=== PATIENT | female | born 1950 | race Caucasian/White ===

== ENCOUNTER 2025-08-09 09:51 | Observation (INO) | payer MEDICARE, SELFPAY ==
--- NOTE | 2025-08-06 17:03 | PCM.HP.BLA ---
History and Physical History and Physical Patient Name: Lori MatthewsB: 1950 From: JONATHAN VALDEZ PA-C DATE OF PRE-OPERATIVE EXAM: 08/05/2025 DATE OF SURGERY: 08/09/2025 SCHEDULED PROCEDURE: Robotic assisted right total knee arthroplasty HISTORY OF PRESENT ILLNESS: Patient is a 74-year-old female presenting for preoperative visit. Patient states that she has had right knee pain since September 2024. Patient states that her pain is intermittent, aching, sharp. Patient states that stairs, driving, walking make her pain worse. Patient states that sitting, resting, elevating the leg helps alleviate her pain. Patient states that she is no longer able to dress herself without difficulty due to pain. Patient states that she has tried cortisone injection with no help. Patient states she has tried ice, elevation, oral medications with help. Patient states that she has not tried heat, compression, physical therapy, home exercises, chiropractor, gel injections. Patient states that she did lose 19 pounds last month but she gained it back due to pain. Patient states she has had 1 cortisone injection at [facility]. Patient denies any previous surgeries on the affected joint. REVIEW OF SYSTEMS: Review Of Systems: Constitutional: Denies change in appetite, fever and weight change. Cardiovasular: Denies chest pain, heart murmur and irregular heartbeat. Respiratory: Reports pneumonia, but denies cough, shortness of breath, tuberculosis and wheezing. Gastrointestinal: Denies constipation, diarrhea, heartburn, nausea, rectal itching, bloody stools and vomiting. Genitourinary: . (F Genital Sx) . (Urinary Sx) Musculoskeletal: Reports leg swelling and pain, but denies trouble walking and weakness. Skin: Denies Raynaud's, history of shingles and tattoo. Neurological: Reports dizziness but denies ambulatory dysfunction, numbness/tingling and tremor. Psychiatric: Reports insomnia, but denies anxiety and stress. Hematologic/Lymphatic: Denies anemia, bleeding/bruising tendency and past transfusion. Reviewed, no changes. PAST MEDICAL HISTORY: Advance Care Plan: No Advance Directives Effective Date: 01/18/2025 Past Medical History: Medical Problems: Arthritis, High Blood Pressure, Hypercholesterolemia, Sleep Apnea, Covid-19 Vaccine Accidents: None Surgical Hx: Appendectomy, Cataracts, Gallbladder, Hysterectomy, Tonsillectomy Anesthesia Complications: None Assistive Devices: Hearing Aid, Cpap Reviewed, no changes. SOCIAL HISTORY: Social History: Marital: .Occupation: Retired.Work Status: Retired.Hand Dominance: Left-handed. Personal Habits: Cigarette Use: Never Smoked Cigarettes.Smokeless Tobacco: Never Used Smokeless Tobacco.E-Cigarette Use: Never used.Alcohol: Occasionally.Drug Use: Denies Use.Enjoy Exercising: Daily. Reviewed, no changes. VITALS: Ht: 63" Wt: 245lb Wt k.132 BMI: 43.4 BP: 128/82 Pulse: 88 Resp: 17 T: 96.8 T: 36.0C Pain Level: 5/10 O2SatR: 96 ALLERGIES: No Known Drug Allergy MEDICATIONS: Meloxicam 15 mg 1 tablet by mouth every day, Ropinirole HCL ER 6 mg take one tablet by mouth nightly, Losartan Potassium 50 mg 1 by mouth every day, Pravastatin Sodium 40 mg 1po qday, Multi-Vitamin vit d, b12, iron, zinc, mag., Synthroid 25 mcg once daily, L-Thyroxine PRE-OP EXAM: General appearance:NORMAL Other: Eyes: Conjunctivae and lids: NORMAL Pupils: ERR Ears, Nose, Mouth, and Throat: NORMAL Other: Inspection of lips, teeth and gums: NORMAL Other: Neck: Examination of neck: no masses noted. Respiratory: Assessment of respiratory effort: NORMAL Other: Auscultation of lungs: clear to auscultation no wheezes, rhonchi or rales. Cardiovascular: Auscultation of heart: regular rate and rhythm, no murmurs, gallops or rubs. Exam of carotid arteries: NORMAL Other: Gastrointestinal: Exam of abdomen: soft, nontender, nondistended bowel sounds present. Lymphatic: Palpation of nodes in neck: NORMAL Other: Palpation of nodes in Axillae: NORMAL Other: Neurological: see below Psychiatric: Orientation to time, place and person: NORMAL Other: Mood and affect: NORMAL Other: PHYSICAL EXAMINATION: Physical exam: Alert and oriented ×3, no acute distress. Normal mood and affect. Antalgic gait. Right knee: Medial joint line tenderness left. Stable to varus valgus stressing. Sensation intact light touch throughout. Range of motion 5-135 left. Stable anterior posterior drawer. Medial joint line tenderness left. Trace effusion. No rashes or lesions. DF, PF, EHL 5/5. DP 2+ brisk capillary refill in toes. IMAGING STUDIES: X-rays reviewed again from 01/18/25 from our office right knee Grade 3 medial compartment osteoarthritis. Mild patellofemoral joint degenerative changes. IMPRESSION: Hypertension Hypercholesterolemia Sleep apnea Prediabetes Restless leg syndrome Chronic fatigue Aortic heart murmur Left ventricular hypertrophy Primary osteoarthritis right knee Pain right knee Obesity PLAN: The surgeon did discuss and review all treatment options with the patient including surgical versus nonsurgical. At this time the patient does wish to proceed with the above-stated procedure. Potential risks benefits and complications of the procedure were discussed and reviewed with the patient including but not limited to , infection, nerve and blood vessel damage, persistent pain, numbness, tingling, paresthesias, blood clot, pulmonary embolism, in the requirement for possible further surgery. Patient expressed full understanding. Has no further questions for the doctor. Does agree to proceed with the above-stated procedure, and has signed the appropriate surgery consent form. DVT prophylaxis: Patient will be taking aspirin 81 mg twice daily for 4 weeks postoperatively. Patient will be wearing ROSEMARIE hose for 2 weeks postoperatively. Pain medications: Patient will be taking Tylenol 1000 mg every 8 hours, meloxicam for 30 days postoperatively, oxycodone as needed for postoperative pain. Patient will be on doxycycline for 2 weeks postoperatively due to BMI over 40. Patient will be on famotidine for 30 days postoperatively. Patient was educated on the use of senna for postoperative constipation. ___ I have re-examined the patient. There are no clinical changes since date of exam. ___ See progress notes for changes. ___ Dictated on admission Date: Time: Signature:
[2025-08-09] VITALS (17 sets, daily range): BP systolic 130–153; BP diastolic 58–93; PULSE 87–107; RESP 12–18; TEMP 36.3–37.1; O2SAT 4–96; BMI 43.3
--- OUTSIDE RECORDS SUMMARY | 2025-08-09 05:54 | XMS RPT_ITS | CCD ---
Author Organization [facility] CliniSynv Care Team Providers Care Sound Art Instructor Name Role Phone Leandro Hayes MD Unavailable Leandro Hayes MD Unavailable Ariane MANAGER WOUND, Yara Unavailable Gogogail (scribe), Hemanta Unavailable Unavaila marilu Shay PA-C, Krystyna J Unavailable [phone] Wengerestefany MANAGER WOUND, Amna Unavailable Unavailabl e Unavailable Unavailable Unavailable Primary Care Provider Unavailabl e Milo ZIMMERMAN, Butpankaj Primary Care Provider [phone] NAROUZE, SAMER N Attending Unavailable LATOUF, BUTROS Referring Unavailable LATOUF, BUTROS Primary Care Unavailable NAROUZE, SAMER N Referring Unavailable LATOUF, BUTROS Primary Care Unavailable NAROUZE, SAMER N Attending Unavailable NAROUZE, SAMER N Attending Unavailable NAROUZE, SAMER N Referring Unavailable LATOUF, BUTROS Primary Care Unavailable NAROUZE, SAMER N Attending Unavailable NAROUZE, SAMER N Referring Unavailable LATOUF, BUTROS Primary Care Unavailable NAROUZE, SAMER N Attending Unavailable NAROUZE, SAMER N Referring Unavailable LATOUF, BUTROS Primary Care Unavailable KalBernice lim Primary Care Unavailable Katerin Acostas Referring Unavailable SpittleKaterins Attending Unavailable Vaccariello, Leandro Primary Care Unavailable Татьяна Beckman Attending Unavailable Vaccariello, Leandro Referring Unavailable Vaccariello, Leandro Primary Care Unavailable Eric Randolphril Attending Unavailable Vaccariello, Leandro Referring Unavailable Vaccariello, Leandro Primary Care Unavailable Татьяна Beckman Attending Unavailable PANKAJ ACOSTA DO Attending Unavailable PANKAJ ACOSTA DO Admitting Unavailable PANKAJ ACOSTA DO Primary Care Unavailable KALYVONNE, BERNICE MD Consulting Unavailable PROVIDER, UNKNOWN Consulting Unavailable PROVIDER, UNKNOWN Consulting Unavailable CALIX, JASIEL Admitting Unavailable CALIX, JASIEL Primary Care Unavailable FIFI, JASIEL Attending Unavailable BERNICE TRACEY MD Consulting Unavailable SHARATH CALIX DR Attending Unavailable SHARATH CALIX DR Admitting Unavailable SHARATH CALIX DR Primary Care Unavailable PROVIDER, UNKNOWN Consulting Unavailable PROVIDER, UNKNOWN Consulting Unavailable BECKMAN, ТАТЬЯНА A Attending Unavailable BECKMAN, ТАТЬЯНА A Admitting Unavailable BECKMAN, ТАТЬЯНА A Primary Care Unavailable UNGERER, ANDREA AGRICULTURAL RESEARCH ENGINEER Consulting Unavailable PROVIDER, UNKNOWN Consulting Unavailable SPITTLE, PANKAJ DO Attending Unavailable SPITTLE, PANKAJ DO Admitting Unavailable SPITTLE, PANKAJ DO Primary Care Unavailable UNGERER, ANDREA AGRICULTURAL RESEARCH ENGINEER Attending Unavailable UNGERER, ANDREA AGRICULTURAL RESEARCH ENGINEER Admitting Unavailable UNGERER, ANDREA AGRICULTURAL RESEARCH ENGINEER Primary Care Unavailable UNGERER, ANDREA AGRICULTURAL RESEARCH ENGINEER Consulting Unavailable PROVIDER, UNKNOWN Consulting Unavailable UNGERER, ANDREA AGRICULTURAL RESEARCH ENGINEER Admitting Unavailable UNGERER, ANDREA AGRICULTURAL RESEARCH ENGINEER Primary Care Unavailable UNGERER, ANDREA AGRICULTURAL RESEARCH ENGINEER Attending Unavailable BECKMAN, ТАТЬЯНА A Admitting Unavailable BECKMAN, ТАТЬЯНА A Primary Care Unavailable BECKMAN, ТАТЬЯНА A Attending Unavailable EDDY PEDRAZA MD Consulting Unavailable PROVIDER, UNKNOWN Consulting Unavailable PROVIDER, UNKNOWN Consulting Unavailable PROVIDER, UNKNOWN Consulting Unavailable EDDY PEDRAZA MD Attending Unavailable EDDY PEDRAZA MD Admitting Unavailable EDDY PEDRAZA MD Primary Care Unavailable EDDY PEDRAZA MD Consulting Unavailable PROVIDER, UNKNOWN Consulting Unavailable PROVIDER, UNKNOWN Consulting Unavailable PROVIDER, UNKNOWN Consulting Unavailable EDDY PEDRAZA MD Consulting Unavailable JOVON, ALISTAIR PA%C Attending Unavailable JOVON, ALISTAIR PA%C Admitting Unavailable JOVON, ALISTAIR PA%C Primary Care Unavailable PROVIDER, UNKNOWN Consulting Unavailable PROVIDER, UNKNOWN Consulting Unavailable PROVIDER, UNKNOWN Consulting Unavailable EDDY PEDRAZA MD Primary Care Unavailable EDDY PEDRAZA MD Attending Unavailable EDDY PEDRAZA MD Admitting Unavailable EDDY PEDRAZA MD Consulting Unavailable PROVIDER, UNKNOWN Consulting Unavailable PROVIDER, UNKNOWN Consulting Unavailable PROVIDER, UNKNOWN Consulting Unavailable EDDY PEDRAZA MD Admitting Unavailable EDDY PEDRAZA MD Primary Care Unavailable EDDY PEDRAZA MD Consulting Unavailable EDDY PEDRAZA MD Attending Unavailable PROVIDER, UNKNOWN Consulting Unavailable PROVIDER, UNKNOWN Consulting Unavailable PROVIDER, UNKNOWN Consulting Unavailable Medications Current Medications Medication Drug Class(es) Dates Sig (Normalized) Sig (Original) albuterol 0.83 mg/ml inhalation solution (2 sources) beta2-Adrenergic Agonist Start: 10-16-2019 Albuterol Sulfate (2.5 MG/3ML) 0.083% Inhalation Nebulization Solution ; 1 (one) nebule nebule every 4-6 hours as needed for 0 days Quantity: 1 {Box} Refills: 0 Ordered: 16-Oct-2019 MD Leandro Hayes Start: 16-Oct-2019 Comments: Medication taken as needed. Comment on above: Medication taken as needed. losartan potassium 50 mg oral tablet (7 sources) Angiotensin 2 Receptor Fermin Start: 09-14-2019 take 1 tablet by mouth once daily Losartan Potassium 50 MG Oral Tablet ; 1 Tablet daily for 0 days Quantity: 90 {Tablet} Refills: 3 Ordered: 14-Sep-2019 MD Leandro Hayes Start: 14-Sep-2019 Comments: Mail order. Comment on above: Mail order. pravastatin sodium 40 mg oral tablet (7 sources) HMG-CoA Reductase Inhibitor Start: 09-14-2019 take 1 tablet by mouth once daily Pravachol 40 MG Oral Tablet ; 1 Tablet daily for 0 days Quantity: 90 {Tablet} Refills: 3 Ordered: 14-Sep-2019 MD Leandro Hayes Start: 14-Sep-2019 Comments: Mail order. Comment on above: Mail order. rOPINIRole 0.5 mg oral tablet (7 sources) Nonergot Dopamine Agonist Start: 09-14-2019 take 1 tablet by mouth twice daily rOPINIRole HCl 0.5 MG Oral Tablet ; 1 Tablet two times daily for 0 days Quantity: 180 {Tablet} Refills: 3 Ordered: 14-Sep-2019 MD Leandro Hayes Start: 14-Sep-2019 Comments: Mail order. take 1 tablet by perlita th once daily at bedtime rOPINIRole XL (Requip XL) 4 mg 24 hr tab let Take 6 mg by mouth once daily at bedtime. Active Comment on above: Mail order. tiZANidine 2 mg oral tablet (6 sources) Central alpha-2 Adrenergic Agonist Start: 02-15-2025 End: 05-16-2025 tiZANidine (Zanaflex) 2 mg tablet Indications: Cervical spondylosis without myelopathy , Radiculopathy of oulchmru-sfzltwi-opzvc region Take 1 tablet (2 mg) by mouth as needed at bedtime for muscle spasms. 90 tablet 02/15/2025 Active triamcinolone acetonide 0.25 mg/ml topical cream (2 sources) Corticosteroid Start: 06-04-2019 Triamcinolone Acetonide 0.025 % External Cream ; 1 (one) application(s) application(s) four times daily to affected for 0 days Quantity: 80 {Gram} Refills: 1 Ordered: 04-Jun-2019 SOFIA Thakkar Start: 04-Jun-2019 Completed/Discontinued Medications Medication Drug Class(es) Dates Sig (Normalized) Sig (Original) azithromycin 250 mg oral tablet (2 sources) Macrolide Antimicrobial Start: 10-08-2019 End: 10-19-2019 Zithromax Z-Daniel 250 MG Oral Tablet ; 2 (two) Tablet today and then 1 tablet daily x 4 days for 0 days Quantity: 1 {Package} Refills: 0 Ordered: 19-Oct-2019 SOFIA Fisher Start: 08-Oct-2019 End: 19-Oct-2019 Status: Inactive Bupivacaine (3 sources) Amide Local Anesthetic Start: 06-15-2025 End: 06-15-2025 As needed, Starting on Sat06/15/25 at 1047, Intraprocedure Start: 05-13-2025 End: 05-13-2025 As needed, Starting on Sat at 1039, Intraprocedure Start: 03-02-2025 End: 03-02-2025 Once PRN Procedure, Starting on Sat03/02/25 at 0949, For 1 dose, Intraprocedure 1 ml dexamethasone phosphate 10 mg/ml injection (2 sources) Corticosteroid Start: 06-15-2025 End: 06-15-2025 As needed, Starting on Sat06/15/25 at 1056, Intraprocedure Start: 03-02-2025 End: 03-02-2025 Once PRN Procedure, Starting on Sat03/02/25 at 0949, For 1 dose, Intraprocedure 1 ml fentaNYL 0.05 mg/ml injection (3 sources) Opioid Agonist Start: 06-15-2025 End: 06-15-2025 As needed, Starting on Sat06/15/25 at 1047, Intraprocedure Start: 05-13-2025 End: 05-13-2025 As needed, Starting on Sat at 1028, Intraprocedure Start: 03-02-2025 End: 03-02-2025 Once PRN Procedure, Starting on Sat03/02/25 at 0943, For 1 dose, Intraprocedure gabapentin 300 mg oral capsule (4 sources) Anti-epileptic Agent Start: 07-13-2019 End: 10-19-2019 Gabapentin 300 MG Oral Capsule ; 1 (one) Capsule Capsule bid for 0 days Quantity: 60 {Capsule} Refills: 3 Ordered: 19-Oct-2019 SOFIA Fisher Amna Start: 13-Jul-2019 End: 19-Oct-2019 Status: Inactive Comments: early afternoon and then evening Comment on above: early afternoon and then evening Mail order. iohexol (OMNIPaque) 240 mg iodine/mL solution (2 sources) Start: 05-13-2025 End: 05-13-2025 As needed, Starting on Sat05/13/25 at 1038, Intraprocedure Start: 03-02-2025 End: 03-02-2025 Once PRN Procedure, Starting on Sat03/02/25 at 0949, For 1 dose, Intraprocedure 10 ml lidocaine hydrochloride 20 mg/ml injection (1 source) Antiarrhythmic, Amide Local Anesthetic Start: 06-15-2025 End: 06-15-2025 As needed, Starting on Sat06/15/25 at 1055, Intraprocedure methylPREDNISolone 4 mg oral tablet (2 sources) Corticosteroid Start: 12-25-2019 End: 12-31-2019 Medrol 4 MG Oral Tablet Therapy Pack ; 1 Tab as directed for 6 days Quantity: 1 {Dose_Pack} Refills: 0 Ordered: 25-Dec-2019 ANDREA Wilburn Start: 25-Dec-2019 End: 31-Dec-2019 Status: Inactive 5 ml midazolam 1 mg/ml injection (3 sources) Benzodiazepine Start: 06-15-2025 End: 06-15-2025 As needed, Starting on Sat06/15/25 at 1047, Intraprocedure Start: 05-13-2025 End: 05-13-2025 As needed, Starting on Sophy at 1028, Intraprocedure Start: 03-02-2025 End: 03-02-2025 Once PRN Procedure, Starting on Sat03/02/25 at 0942, For 1 dose, Intraprocedure predniSONE 10 mg oral tablet (2 sources) Start: 06-04-2019 End: 07-13-2019 take 2 tablets by mouth twice daily predniSONE 10 MG Oral Tablet ; 2 (two) Tablet two times daily for 5 days Quantity: 20 {Tablet} Refills: 1 Ordered: 13-Jul-2019 SOFIA Thakkar Start: 04-Jun-2019 End: 13-Jul-2019 Status: Inactive Problems Active Problems Problem Classification Problem Date Documented Date Episodic/Chronic Allergic reactions (4 sources) Allergic contact dermatitis; Translations: [Allergic contact dermatitis, unspecified cause] 06-04-2019 Episodic Cancer of cervix (2 sources) History of malignant neoplasm of cervix; Translations: [Personal history of malignant neoplasm of cervix uteri] 10-19-2019 Episodic Comment on above: in the 1970s Diabetes mellitus without complication (2 sources) Prediabetes; Translations: [Hyperglycemia, unspecified] Onset: 06-29-2025 Episodic Diseases of white blood cells (1 source) Elevated white blood cell count, unspecified; Translations: [Elevated white blood cell count, unspecified] Onset: 06-29-2025 Chronic Disorders of lipid metabolism (9 sources) Hyperlipidemia; Translations: [Hyperlipidemia, unspecified] Onset: 01-28-2025 10-19-2019 Chronic Diverticulosis and diverticulitis (2 sources) Diverticulosis of colon; Translations: [Diverticulosis of large intestine without perforation or abscess without bleeding] 10-19-2019 Chronic Essential hypertension (12 sources) Hypertensive disorder; Translations: [Essential (primary) hypertension] Onset: 01-28-2025 10-19-2019 Chronic Osteoarthritis (1 source) Unspecified osteoarthritis, unspecified site; Translations: [Unspecified osteoarthritis, unspecified site] Onset: 01-15-2025 Chronic Other hereditary and degenerative nervous system conditions (6 sources) Restless legs; Translations: [Restless legs syndrome] 10-19-2019 Chronic Other hereditary and degenerative nervous system conditions (1 source) Restless legs syndrome; Translations: [Restless legs syndrome] Onset: 01-28-2025 Chronic Other lower respiratory disease (4 sources) Cough; Translations: [Cough] 12-25-2019 Episodic Other lower respiratory disease (4 sources) Lower respiratory tract infection; Translations: [Unspecified acute lower respiratory infection] 10-19-2019 Episodic Other nervous system disorders (10 sources) Nerve root disorder 02-15-2025 Chronic Other nervous system disorders (4 sources) Disease of spinal cord, unspecified; Translations: [Disease of spinal cord, unspecified] Onset: 01-15-2025 Chronic Other nutritional; endocrine; and metabolic disorders (4 sources) Body mass index 30+ - obesity; Translations: [Body mass index (BMI) 39.0-39.9, adult] 10-19-2019 Chronic Other nutritional; endocrine; and metabolic disorders (4 sources) Body mass index 40+ - severely obese; Translations: [Body mass index (BMI) 40.0-44.9, adult] 10-19-2019 Chronic Other nutritional; endocrine; and metabolic disorders (1 source) Obesity, unspecified; Translations: [Obesity, unspecified] Onset: 01-28-2025 Chronic Other screening for suspected conditions (not mental disorders or infectious disease) (4 sources) Patient encounter status; Translations: [Encounter for screening mammogram for malignant neoplasm of breast] 06-05-2019 Episodic Pleurisy; pneumothorax; pulmonary collapse (4 sources) Atelectasis; Translations: [Atelectasis] 10-19-2019 Episodic Pneumonia (except that caused by tuberculosis or sexually transmitted disease) (4 sources) Pneumonia; Translations: [Pneumonia, unspecified organism] 10-19-2019 Episodic Residual codes; unclassified (1 source) Sleep apnea, unspecified; Translations: [Sleep apnea, unspecified] Onset: 01-28-2025 Chronic Residual codes; unclassified (4 sources) Influenza vaccination declined; Translations: [Immunization not carried out because of patient refusal] 10-19-2019 Episodic Residual codes; unclassified (2 sources) Not up to date with immunizations; Translations: [Other specified personal history presenting hazards to health] 10-19-2019 Episodic Residual codes; unclassified (2 sources) Cancer cervix screening - not needed; Translations: [Procedure and treatment not carried out for other reasons] 10-19-2019 Episodic Residual codes; unclassified (6 sources) Pneumococcal vaccination declined; Translations: [Immunization not carried out because of patient refusal] 07-13-2019 Episodic Screening and history of mental health and substance abuse codes (2 sources) Ex-smoker; Translations: [Personal history of nicotine dependence] 10-19-2019 Episodic Spondylosis; intervertebral disc disorders; other back problems (20 sources) Cervical spondylosis without myelopathy; Translations: [Spondylosis without myelopathy or radiculopathy, cervical region] Onset: 02-09-2025 02-15-2025 Chronic Thyroid disorders (2 sources) Hypothyroidism, unspecified; Translations: [Hypothyroidism, unspecified] Onset: 06-29-2025 Chronic Unclassified (2 sources) Number of Children 10-19-2019 Comment on above: 2. Unclassified (2 sources) Number of Pregnancies 10-19-2019 Comment on above: 2. Unclassified (2 sources) Vaginal deliveries 10-19-2019 Comment on above: 2. Unclassified (2 sources) Transition into care - The patient is transitioning into care from a hospital and a summary of care was reviewed. 10-19-2019 Unclassified (2 sources) [ADDITIONAL REASON] Follow up from hospital stay - Name of Hospital: [facility]. Date of Admission: 10/09/2019. Date of Discharge: 10/11/2019. The patient was hospitalized for still sick, positive influenza. No post hospital therapies were ordered. Patient was discharged to home. Current Symptoms: back pain, cough (not as bad as it was; dry), fatigue and headache. Note for "Follow up from hospital stay": No sore throat. Had blood work done, chest xray- admitted for bilateral pneumonia with hypoxia. Meds given - IV steroids, levaquin. Was discharged with prednisone 40mg for 5 days, hycodan 5ml q 4-6 hrs prn, finish zithromax, and continue with nebulizer treatments. 10-19-2019 Unclassified (3 sources) Follow up for multiple chronic conditions - The patient is here for follow-up of hyperlipidemia and hypertension. The patient usually takes the prescribed medications. No side effects noted. The patient has an active lifestyle but no regular exercise program. The patient's out of office blood pressure checks occur occasionally. Note for "Multiple chronic conditions follow-up": -Recently moved here from [place]. 07-13-2019 Unclassified (1 source) [ADDITIONAL REASON] MCR Well Adult - In general the patient feels well with no complaints, has good energy level and is sleeping well. The patient takes no supplemental vitamins & iron. The patient does not exercise and sleeps 7 hours per night. The patient denies having trouble with bathing, dressing/grooming, toileting, preparing meals and ambulating. The patient denies having trouble with grocery shopping, driving, use of telephone, housework, laundry, preparing/taking medications and finances. The patient does not perform monthly breast self exam. The patient has a Healthcare Power of Hospital Superintendent and a Living Will. Note for "[facility] Well Adult": -7:57 AM - Yara Schneider:can you check Lori Altamirano 48. is she an initial medicare wellness or subsequent. she is relatively new here and not had one thru this ofc but I dont know if she had one before or notColette Propri is available8:04 AM - Violetta Propri:she would be the initial wellness, not welcome to [facility], but the first wellness visit, the [id number] code. 07-13-2019 Unclassified (1 source) [facility] Well Adult - In general the patient feels well with no complaints, has good energy level and is sleeping well. The patient takes no supplemental vitamins & iron. The patient does not exercise and sleeps 7 hours per night. The patient denies having trouble with bathing, dressing/grooming, toileting, preparing meals and ambulating. The patient denies having trouble with grocery shopping, driving, use of telephone, housework, laundry, preparing/taking medications and finances. The patient does not perform monthly breast self exam. The patient has a Healthcare Power of Hospital Superintendent and a Living Will. Note for "[facility] Well Adult": -7:57 AM - Yara Schneider:can you check Lori Altamirano 48. is she an initial medicare wellness or subsequent. she is relatively new here and not had one thru this ofc but I dont know if she had one before or notColette Propri is available8:04 AM - Violetta Propri:she would be the initial wellness, not welcome to [facility], but the first wellness visit, the G0438 code. 07-13-2019 Unclassified (1 source) [ADDITIONAL REASON] Follow up for multiple chronic conditions - The patient is here for follow-up of hyperlipidemia and hypertension. The patient usually takes the prescribed medications. No side effects noted. The patient has an active lifestyle but no regular exercise program. The patient's out of office blood pressure checks occur occasionally. Note for "Multiple chronic conditions follow-up": -Recently moved here from [place]. 07-13-2019 Past or Other Problems Problem Classification Problem Date Documented Date Episodic/Chronic Spondylosis; intervertebral disc disorders; other back problems (8 sources) Nerve root disorder; Translations: [Radiculopathy, ukvlqxun-dovpscc-kwgd l region] Onset: 02-01-2025 02-15-2025 Episodic Unclassified (2 sources) Cold Symptoms - Symptoms include dry cough (tighter than it was; chest hurts from coughing), wheezing and headache, but do not include nasal congestion, runny nose, ear pain, sore throat, fever or chills. The symptoms occur constantly. The patient describes this as moderate in severity and worsening. Current treatment includes non-prescription cold medication and NSAIDs (this am). The patient has been exposed to an individual with similar symptoms. Patient denies history of seasonal allergies, recurrent sinusitis, recurrent strep pharyngitis, asthma, tonsillectomy or recurrent ear infections. Note for Upper respiratory infection": Went to urgent care on 10/01/19- was positive for influenza and treated with tamiflu, flonase, and tessalon perles. 10-08-2019 Unclassified (2 sources) Rash - The rash has been occurring in a persistent pattern for 3 days. The course has been increasing. The rash is characterized as red. The rash was first seen on the upper extremity (lower right arm). It spread to the scalp, the face, the trunk (right side, chest), the upper extremity and the lower extremity. There has been associated itching and drainage (some seeping). Note for "Rash": Has tried using calamine lotion, hydrocortisone spray and Benadryl. Continues to have new areas developing. 06-04-2019 Unclassified (6 sources) Onset: 02-15-2025 02-15-2025 Results Test Name Value Interpretation Reference Range Facility ALBUMIN PLASMAon 07-29-2025 Albumin [Mass/Vol] 3.4 g/dL Normal 3.4 - 5.0 [facility] Comment on above: Performed By: #### 2 [id number] #### [facility],[address] [place] [address] BMP with eGFRon 07-29-2025 AGE 74 years Normal [facility] Comment on above: Performed By: #### 2 [id number] #### [facility],[address] [place] [address] Anion gap [Moles/Vol] 10 mmol/L Normal 10 - 20 [facility] Comment on above: Performed By: #### 2 [id number] #### [facility],[address] [place] [address]77 BMP with eGFR Normal [facility] Comment on above: Result Comment: BASI C METABOLIC PANEL Performed By: #### 2 [id number] #### [facility],[address] [place] [address] Calcium [Mass/Vol] 9.5 mg/dL Normal 8.5 - 10.1 [facility] Comment on above: Performed By: #### 2 [id number] #### [facility],[address] [place] [address]502 Chloride [Moles/Vol] 102 mmol/L Normal 98 - 107 [facility] Comment on above: Performed By: #### 2 [id number] #### [facility],[address] [place] [address] 43225 CO2 [Moles/Vol] 28.3 mmol/L Normal 21.0 - 32.0 [facility] Comment on above: Performed By: #### 2 [id number] #### [facility],[address] [place] [address]152 Creatinine [Mass/Vol] 0.72 mg/dL Normal 0.55 - 1.02 [facility] Comment on above: Performed By: #### 2 [id number] #### [facility],[address] [place] [address] GFR/1.73 sq M.predicted among non-blacks MDRD (S/P/Bld) [Vol rate/Area] mL/min/{1.73_m2} Normal 60 - 999 [facility] Comment on above: Performed By: #### 2 [id number] #### [facility],[address] [place] [address] Result Comment: ACCO RDING TO THE NATIONAL KIDNEY DISEASE EDUCATION PROGRAM(NKDE), A NORMAL eGFR IS A VALUE GREATER THAN OR EQUAL TO 60 ML/MIN/1.73 SQ METERS. CHRONIC KIDNEY DISEASE: <60mL/MIN/1.73 SQ METERS KIDNEY FAILURE: <15mL/MIN/1.73 SQ METERS THIS TEST SHOULD ONLY BE USED FOR PATIENTS 18 YEARS OF AGE AND OLDER. Glucose [Mass/Vol] 87 mg/dL Normal 74 - 106 [facility] Comment on above: Performed By: #### 2 [id number] #### [address] [address] Potassium [Moles/Vol] 4.0 mmol/L Normal 3.5 - 5.1 [facility] Comment on above: Performed By: #### 2 [id number] #### [facility],[address] [place] [address]377 Sodium [Moles/Vol] 136 mmol/L Normal 136 - 145 [facility] Comment on above: Performed By: #### 2 [id number] #### [facility],[address] [place] [address]19 Urea nitrogen [Mass/Vol] 18 mg/dL Normal 7 - 18 [facility] Comment on above: Performed By: #### 2 [id number] #### [address] [address] CBC + DIFFon 07-29-2025 Baso # 0.01 x10EE3/UL Normal 0.00 - 0.10 [facility] Comment on above: Performed By: #### 2 [id number] #### [facility],[address] [place] [address] Basophils/100 WBC (Bld) 0.2 % Normal 0.0 - 2.0 [facility] Comment on above: Performed By: #### 2 00059 #### [facility],[address] [place] [address] CBC + DIFF Normal [facility] Comment on above: Result Comment: CBC- COMPLETE BLOOD COUNT Performed By: #### 2 [id number] #### [facility],[address] [place] [address] EO # 0.25 x10EE3/UL Normal 0.00 - 0.50 [facility] Comment on above: Performed By: #### 2 97013 #### [facility],[address] [place] [address] Eosinophils/100 WBC (Bld) 3.2 % Normal 0.0 - 7.0 [facility] Comment on above: Performed By: #### 2 02512 #### [facility],[address] [place] [address] Erythrocyte distribution width (RBC) [Ratio] 12.8 % Normal 12.0 - 15.6 [facility] Comment on above: Performed By: #### 2 73277 #### [facility],[address] [place] [address] Hematocrit (Bld) [Volume fraction] 39.2 % Normal 34.0 - 46.0 [facility] Comment on above: Performed By: #### 2 84600 #### [facility],[address] [place] [address] Hemoglobin (Bld) [Mass/Vol] 13.0 g/dL Normal 12.0 - 16.0 [facility] Comment on above: Performed By: #### 2 91550 #### [facility],[address] [place] [address] Lymph # 1.66 x10EE3/UL Normal 0.80 - 2.80 [facility] Comment on above: Performed By: #### 2 89844 #### [facility],[address] [place] [address] Lymphocytes/100 WBC (Bld) 21.1 % Normal 20.0 - 45.0 [facility] Comment on above: Performed By: #### 2 86108 #### [facility],[address] [place] [address] MANUAL DIFF N/A Normal [facility] Comment on above: Performed By: #### 2 38001 #### [facility],[address] [place] [address] MCH (RBC) [Entitic mass] 29 pg Normal 27 - 33 [facility] Comment on above: Performed By: #### 2 40116 #### [facility],[address] [place] [address] MCHC 33 X10 3 Normal 32 - 36 [facility] Comment on above: Performed By: #### 2 99553 #### [facility],[address] [place] [address] MCV (RBC) [Entitic vol] 87 fL Normal 80 - 99 [facility] Comment on above: Performed By: #### 2 64276 #### [facility],[address] [place] [address] [place] # 0.56 x10EE3/UL Normal 0.20 - 1.00 [facility] Comment on above: Performed By: #### 2 40925 #### [facility],[address] [place] [address] MONOS % 7.0 % Normal 0.0 - 10.0 [facility] Comment on above: Performed By: #### 2 31907 #### [facility],[address] [place] [address] Morphology Josse (Bld) [Interp] N/A Normal [facility] Comment on above: Performed By: #### 2 30916 #### [facility],[address],[place] [address] Neut # 5.40 x10EE3/UL Normal 1.50 - 7.10 [facility] Comment on above: Performed By: #### 2 13060 #### [facility],[address] [place] [address] 25849 Neutrophils/100 WBC (Bld) 68.5 % Normal 46.0 - 76.0 [facility] Comment on above: Performed By: #### 2 83934 #### [facility],[address] [place] [address] 25122 PLATELET 280 x10EE3/UL Normal 150 - 450 [facility] Comment on above: Performed By: #### 2 30353 #### [facility],[address] [place] [address] 62267 Platelet mean volume (Bld) [Entitic vol] 8.1 fL Normal 6.6 - 10.5 [facility] Comment on above: Result Comment: AUTO MATED DIFFERENTIAL Performed By: #### 2 81035 #### [facility],[address] [place] [address] 57688 RBC 4.53 x 10EE6/UL Normal 4.10 - 5.30 [facility] Comment on above: Performed By: #### 2 31982 #### [facility],[address] [place] [address] 28046 WBC 7.9 x 10EE3/UL Normal 4.5 - 10.8 [facility] Comment on above: Performed By: #### 2 20695 #### [facility],[address] [place] [address] LOWER EXTREMITY RT [facility] 1 CT LOWER EXTREMITY RT [address] ? [place] [address] ? Patient: LORI ALTAMIRANO I. Phone#: : 1950 Age: 74 Gender: F Pt. Type: Out Account: [id number] Location: 052 Ordering: DR. PANKAJ ACOSTA Exam Date: 07/29/2025/14:11 Family Phys: BERNICE TRACEY Charge Code: 361906 Physician: Talbot Order #: [id number] Dose#: 32.1 PROCEDURE: CT LOWER EXTREMITY RT WO CONTRAST COMPARISON: None. INDICATIONS: [place]. TECHNIQUE: Multi-planar CT images were created without intravenous contrast. All CT scans at this facility use dose modulation, iterative reconstruction, and/or weight based dosing when appropriate to reduce radiation dose to as low as reasonably achievable. IV CONTRAST: No IV contrast used,0.0ml TOTAL DOSE: 32.1 CTDIvol(mGy) FINDINGS: BONES: Moderately severe degenerative changes of the knee are present most severe at the medial compartment. Osteophytes are present at the medial femoral condyle and tibial plateau. There is narrowing of the lateral patellofemoral joint. There is an ovoid calcification adjacent to the medial tibial spine measuring 3 x 8 millimeters. Possibility of loose body versus avulsion from the spine is raised. Subcortical cysts are present at the tibial plateau. There is irregularity of the cortex of the lateral tibial plateau. SOFT TISSUES: Fat stranding is present lateral to the distal femur without evidence of focal mass or fluid collection. Subcutaneous edema is present at the ankle. EFFUSION: None visible. OTHER: Negative. CONCLUSION: 1. Moderate degenerative changes of the knee are present most marked involving the medial compartment. 2. Fat stranding is present lateral to the distal femur. No other focal soft tissue abnormality is identified. Continued Report - Page 2 of 2 Patient: LORI ALTAMIRANO I. Phone#: : 1950 Age: 74 Gender: F Pt. Type: Out Account: [id number] Location: 052 Ordering: DR. PANKAJ ACOSTA Exam Date: 07/29/2025/14:11 Family Phys: BERNICE TRACEY Charge Code: 679891 Physician: Talbot Order #: [id number] Dose#: 32.1 Dictated by: Rosetta Guallpa MD on 07/29/2025 at 17:40 Approved by: Rosetta Guallpa MD on 07/29/2025 at 17:46 Normal [facility] MAGNESIUMon 10-23-2025 Magnesium [Mass/Vol] 2.2 mg/dL Normal 1.8 - 2.4 [facility] Comment on above: Performed By: #### 2 34436 #### [facility],[address] [place] [address] 22538 MRSA Spec Ql Culton 07-29-20 25 MRSA isol Org specific cx Ql (Unsp spec) STAPHYLOCOCCUS AUREUS CULTURE: No growth Normal [facility] Comment on above: Performed By: #### 1 3317-3 #### [facility] CLIA [id number] [address] [place] [address] [facility] TSHon 07-29-2025 TSH Qn 4.63 m[IU]/L High 0.35 - 3.74 [facility] Comment on above: Performed By: #### 2 26160 #### [facility],[address] [place] [address] 75166 HEMOGLOBIN A1C (POM)on 06-29 Glucose [Mass/Vol] 125.5 mg/dL High 0.0 - 0.0 [facility] Comment on above: Result Comment: BLDo HEMOGLOBIN A1C REFERENCE RANGESBLDo Suggested Diagnosis HbA1c(%) HbA1C (mmol/mol Diabetic >/=6.5 >/=48 Prediabetes 5.7 - 6.4 39 - 47 Normal <5.7 <39 Performed By: #### 2 84950 #### [facility],[address] [place] [address] 20416 HbA1c (Bld) [Mass fraction] 6.0 % Normal 0.0 - 6.5 [facility] Comment on above: Performed By: #### 2 39008 #### [facility],[address] [place] [address] 08534 T4-FREE (FREE THYROXINE)on 0 06-29-2025 Free T4 [Mass/Vol] 0.84 ng/dL Normal 0.76 - 1.46 [facility] Comment on above: Result Comment: P otential of falsely elevated results when biotin concentrations are > 10 ng/mL. Performed By: #### 2 42662 #### [facility],[address] [place] [address] TSHon 06-29-2025 TSH Qn 1.65 m[IU]/L Normal 0.35 - 3.74 [facility] Comment on above: Performed By: #### 2 04203 #### [facility],[address] [place], [place] [address] [place] PAIN MANAGEMENTon 025 FL PAIN MANAGEMENT These images are not reportable by radiology and will not be interpreted by Radiologists. Normal [facility] FL pain managementon 025 These images are not reportable by radiology and will not be interpreted by Radiologists. IMAGING Radiofrequency Ablationon [facility] Work Phone: Radiology Study observation (narrative) [facility] Work Phone: FL PAIN MANAGEMENTon 025 [place] PAIN MANAGEMENT These images are not reportable by radiology and will not be interpreted by Radiologists. Normal [facility] FL pain managementon 025 These images are not reportable by radiology and will not be interpreted by Radiologists. IMAGING Medial Nerve Branch Blockon 05-13-2025 [facility] Work Phone: Radiology Study observation (narrative) [facility] Work Phone: XR CERVICAL SPINE COMPLETE 4 -5 VIEWSon 04-28-2025 XR CERVICAL SPINE COMPLETE 4-5 VIEWS Interpreted By: Pankaj Fountain, STUDY: XR CERVICAL SPINE COMPLETE 4-5 VIEWS INDICATION: Signs/Symptoms:neck pain. COMPARISON: None ACCESSION NUMBER(S): [id number] ORDERING CLINICIAN: GERMANIA LANDRY FINDINGS: Fwll-yl-cpxyagek cervical degenerative changes mostly C5 through C7. Alignment normal without pathologic motion. Some neural foraminal narrowing C5-6 and C6-7. IMPRESSION: Detg-nt-mklihtiw cervical degenerative changes greatest C5 through C7. Signed by: Pankaj Fountain 04/30/2025 12:06 PM Dictation workstation: [id number] [facility] FL PAIN MANAGEMENTon [place] PAIN MANAGEMENT These images are not reportable by radiology and will not be interpreted by Radiologists. Normal [facility] FL pain managementon These images are not reportable by radiology and will not be interpreted by Radiologists. IMAGING Medial Nerve Branch Blockon 03-02-2025 [facility] Work Phone: Radiology Study observation (narrative) [facility] Work Phone: Orthopedic Visit Reporton Orthopedic Visit Report [facility] [address] [place] [address] [address] [place] [address] OFFICE VISIT Date of Service: 02/09/25 MR#: [id number] Acct: [id number] Name: LORI ALTAMIRANO Rep #: [id number] : 1950 Provider: Dr. Татьяна Beckman MD Age/Sex: 74/F Location: [facility].DC Status: Signed Intake Vital Signs 01/15/25 09:45 Height 5 ft 4 in Weight: 230 lb BMI 39.4 Intake Visit Reasons: CERVICAL SPINE Chief Complaint: MRI Review Allergies No Known Allergies Allergy (Unverified 01/15/25 09:48) Have you fallen in the past year?: No PFSH Medical History Arthritis High cholesterol Restless leg syndrome Hypertension Surgical History Hx laparoscopic cholecystectomy S/P SHAE (total abdominal hysterectomy) Family History Mother Breast cancer, Onset Age: 60 Social History Smoking Status: Never smoker alcohol intake: current details: social substance use type: does not use caffeine: Yes what type of physical activity do you participate in: walking seatbelt use: always do you feel safe at home: Yes additional social history: 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 Татьяна Beckman MD 02/09/25 3077. Part of today???s visit was documented by Sade CRUZ, acting as scribe. LORI ALTAMIRANO is a 74 year old F here today for MRI review of her cervical spine. Patient denies any changes. Patient has not been to physical therapy. She did see Dr. Smyth and he gave her an injection at C3-4 which did not special needs caregiver her any relief. Dr. Smyth did the injection at C3-4 because of the xrays at C1-2 he was not able to see it very well. She is non-diabetic. 01/15/25: LORI ALTAIMRANO is a 74 year old F here today for cervical spine pain. Pain (location, quality, quantity, radiation): The pain is right in the back of the head on the right side. The pain is a sharp and constant throbbing pain. Sometimes when she hold s her right shoulder up the pain goes into the right shoulder. Onset (date, injury, precipitating event):This started about 5-6 months ago. Patient denies any injuries, she sates that it just came on one day and has been gradually getting worse. Prior Hx (injury, surgery, prior issues with extremity):Patient denies any surgeries with this. Aggravating factor (position, tasks):The pain hurts worse when her head is tilled back, or whenever she moves. Deneis any numnbess or tingling. Treatments (ice/heat , Medication, injections, home exercises):Patient got a shot from Dr. Hernandez on 09/22/2024. That was her first shot, she stated that helped a little bit. She picked up a cooler 4 days after the shot and that's when she felt that pain. Comorbidities (BMI, DM, Inflammatory conditions, blood thinner, chemotherapy):Denies any of these. Social (upper extremity dominance, profession, tobacco/drugs/ETOH:Patie nt denies any smoking or doing drugs. Patient denies any pain on the left. She has pain when she turns her head. Patient got [address] Smyth in September. She has not done any physical therapy. I examined the patient today. She is having pain when she tilts her head back. Patient thinks she is a borderline diabetic, does not take any medication for this. Patient denies any MRI's on the neck. Ortho Exam General General: Yes no acute distress and Yes well groomed Neurologic: Yes alert and Yes oriented x3 Psychologic: Yes reasonable and appropriate Spine SPINE TESTING CERVICAL THORACIC LUMBAR Musculoskeletal Strength 0=absent - 5=normal Details: Examination the neck shows right paraspinal tenderness in the upper cervical region. Neurologic valuation of upper extremity shows 5 x 5 power normal intervals normal sensations in all dermatomes. Mk's is positive on the left. Left knee reflexes brisk. No clonus. Romberg's is positive. Tandem gait shows mild imbalance. Coding Level of Care Code Off vis,est,level 4 Diagnoses Cervical spine arthritis M47.812 Other cervical disc degeneration, mid-cervical region, unspecified level M50.320 Time Spent (min) 35 Assessment and Plan Assessment and Plan (1) Cervical spine arthritis: Status: Acute (2) Other cervical disc degeneration, mid-cervical region, unspecified level: Status: Acute Orders: Referrals Physical Therapy Referral M47.812 - Spondylosis without myelopathy or radiculopathy, cervical region Plan Reviewed cervical spine MRI that was done at an outside facility. Also reviewed previous x-rays. (more content not included)... Normal [facility] MR CERVICAL SP WO CONTRASTon 02-04-2025 MR CERVICAL SP CONTRAST [place] [address] Patient: LORI ALTAMIRANO I. Phone#: : 1950 Age: 74 Gender: F Pt. Type: Out Account: [id number] Location: 052 Ordering: ТАТЬЯНА BECKMAN Exam Date: 02/04/2025/13:49 Family Phys: Charge Code: [id number] Physician: Talbot Order #: [id number] Dose#: PROCEDURE: MRI CERVICAL SPINE WITHOUT CONTRAST COMPARISON: None. INDICATIONS: Neck pain TECHNIQUE: A variety of imaging planes and parameters were utilized for visualization of suspected pathology. FINDINGS: CRANIOCERVICAL AREA: Normal foramen magnum with no Chiari malformation. PARASPINAL AREA: Normal with no visible mass. BONES: Vertebral bodies are maintained in height and alignment. Normal marrow signal. Dens is intact. CORD: Normal caliber, contour, and signal intensity. CERVICAL DISC LEVELS: C2-C3: No significant disc/facet abnormality, spinal stenosis, or foraminal stenosis. C3-C4: Mild circumferential disc bulge and uncovertebral hypertrophy contributes to mild bilateral foraminal narrowing. No significant spinal canal narrowing C4-C5: Circumferential disc bulge and uncovertebral hypertrophy contributes to mild bilateral foraminal narrowing without significant spinal canal narrowing. C5-C6: Circumferential disc bulge and uncovertebral hypertrophy contributes to mild bilateral foraminal narrowing. No significant spinal canal narrowing. C6-C7: Circumferential disc bulge, uncovertebral hypertrophy and ligamentum flavum hypertrophy contributes to mild bilateral foraminal narrowing. There is mild spinal canal narrowing. C7-T1: Circumferential disc bulge, uncovertebral hypertrophy and ligamentum flavum hypertrophy contributes to mild bilateral foraminal narrowing and mild spinal canal narrowing. CONCLUSION: 1. C3-4 through C7-T1 bulge and uncovertebral hypertrophy contributing to multilevel mild foraminal narrowing. Mild spinal canal narrowing at C6-7 and C7-T1. Dictated by: Tatyana Bingham MD on 02/08/2025 at 14:13 Approved by: Tatyana Bingham MD on 02/08/2025 at 14:30 Normal [facility] CBC + DIFFon 01-28-2025 Baso # 0.04 x10EE3/UL Normal 0.00 - 0.10 [facility] Comment on above: Performed By: #### 2 70618 #### [facility],[address] [place] [address] Basophils/100 WBC (Bld) 0.3 % Normal 0.0 - 2.0 [facility] Comment on above: Performed By: #### 2 52908 #### [facility],[address] [place] [address] CBC + DIFF Normal [facility] Comment on above: Result Comment: CBC- COMPLETE BLOOD COUNT Performed By: #### 2 89106 #### [facility],[address] [place] [address] EO # 0.31 x10EE3/UL Normal 0.00 - 0.50 [facility] Comment on above: Performed By: #### 2 35154 #### [place] [id number] Eosinophils/100 WBC (Bld) 2.7 % Normal 0.0 - 7.0 [facility] Comment on above: Performed By: #### 2 80849 #### [place] [address] Erythrocyte distribution width (RBC) [Ratio] 13.9 % Normal 12.0 - 15.6 [facility] Comment on above: Performed By: #### 2 54857 #### [place] [address] Hematocrit (Bld) [Volume fraction] 37.1 % Normal 34.0 - 46.0 [facility] Comment on above: Performed By: #### 2 71151 #### [place] [address] Hemoglobin (Bld) [Mass/Vol] 12.8 g/dL Normal 12.0 - 16.0 [facility] Comment on above: Performed By: #### 2 68491 #### [place] [address] Lymph # 2.49 x10EE3/UL Normal 0.80 - 2.80 [facility] Comment on above: Performed By: #### 2 85551 #### [place] [address] Lymphocytes/100 WBC (Bld) 21.6 % Normal 20.0 - 45.0 [facility] Comment on above: Performed By: #### 2 06070 #### [place] [address] MANUAL DIFF N/A Normal [facility] Comment on above: Performed By: #### 2 76904 #### [place] [address] MCH (RBC) [Entitic mass] 30 pg Normal 27 - 33 [facility] Comment on above: Performed By: #### 2 60931 #### [facility],[address] [place] [address] MCHC 34 X10 3 Normal 32 - 36 [facility] Comment on above: Performed By: #### 2 21879 #### [facility],[address] [place] [address] MCV (RBC) [Entitic vol] 88 fL Normal 80 - 99 [facility] Comment on above: Performed By: #### 2 79650 #### [facility],[address] [place] [address] [place] # 0.72 x10EE3/UL Normal 0.20 - 1.00 [facility] Comment on above: Performed By: #### 2 16037 #### [facility],[address] [place] [address] MONOS % 6.2 % Normal 0.0 - 10.0 [facility] Comment on above: Performed By: #### 2 89527 #### [facility],[address] [place] [address] Morphology Josse (Bld) [Interp] N/A Normal [facility] Comment on above: Performed By: #### 2 29129 #### [facility],[address] [place] [address] Neut # 7.96 x10EE3/UL High 1.50 - 7.10 [facility] Comment on above: Performed By: #### 2 47796 #### [facility],[address] [place] [address] Neutrophils/100 WBC (Bld) 69.2 % Normal 46.0 - 76.0 [facility] Comment on above: Performed By: #### 2 25362 #### [facility],[address],[place] [address] PLATELET 319 x10EE3/UL Normal 150 - 450 [facility] Comment on above: Performed By: #### 2 11711 #### [facility],[address] [place] [address] 38774 Platelet mean volume (Bld) [Entitic vol] 8.1 fL Normal 6.6 - 10.5 [facility] Comment on above: Result Comment: AUTO MATED DIFFERENTIAL Performed By: #### 2 00987 #### [facility],[address] [place] [address] 03167 RBC 4.24 x 10EE6/UL Normal 4.10 - 5.30 [facility] Comment on above: Performed By: #### 2 71406 #### [facility],[address] [place] [address] 92058 WBC 11.5 x 10EE3/UL High 4.5 - 10.8 [facility] Comment on above: Performed By: #### 2 40930 #### [facility],[address] [place] [address] 41278 CMP with eGFRon 01-28-2025 AGE 74 years Normal [facility] Comment on above: Performed By: #### 2 32865 #### [facility],[address] [place] [address] 68350 Albumin [Mass/Vol] 3.1 g/dL Low 3.4 - 5.0 [facility] Comment on above: Performed By: #### 2 16722 #### [facility],[address] [place] [address] 60510 Albumin/Globulin [Mass ratio] 0.8 {ratio} Low 0.9 - 1.6 [facility] Comment on above: Performed By: #### 2 26729 #### [facility],[address] [place] [address] 58347 ALK PHOS 84 U/L Normal 46 - 116 [facility] Comment on above: Performed By: #### 2 31958 #### [facility],[address] [place] [address] 94039 ALT [Catalytic activity/Vol] 25 U/L Normal 16 - 63 [facility] Comment on above: Performed By: #### 2 55966 #### [facility],[address] [place] [address] 68274 Anion gap [Moles/Vol] 10 mmol/L Normal 10 - 20 [facility] Comment on above: Performed By: #### 2 55624 #### [facility],[address] [place] [address] 62098 AST [Catalytic activity/Vol] 14 U/L Normal 13 - 39 [facility] Comment on above: Performed By: #### 2 65315 #### [facility],[address] [place] [address] 94603 B/C RATIO 34 ratio High 0 - 30 [facility] Comment on above: Performed By: #### 2 33590 #### [facility],[address] [place] [address] 75898 Bilirubin [Mass/Vol] 0.4 mg/dL Normal 0.2 - 1.0 [facility] Comment on above: Performed By: #### 2 05893 #### [facility],[address] [place] [address] 17023 Calcium [Mass/Vol] 9.6 mg/dL Normal 8.5 - 10.1 [facility] Comment on above: Performed By: #### 2 35056 #### [facility],[address] [place] [address] 35367 Chloride [Moles/Vol] 106 mmol/L Normal 98 - 107 [facility] Comment on above: Performed By: #### 2 22189 #### [facility],[address] [place] [address] 31001 CMP with eGFR Normal [facility] Comment on above: Result Comment: COMP REHENSIVE METABOLIC PANEL Performed By: #### 2 91165 #### [facility],[address] [place] [address] 54854 CO2 [Moles/Vol] 29.3 mmol/L Normal 21.0 - 32.0 [facility] Comment on above: Performed By: #### 2 12076 #### [facility],[address] [place] [address] 95928 Creatinine [Mass/Vol] 0.85 mg/dL Normal 0.55 - 1.02 [facility] Comment on above: Performed By: #### 2 26506 #### [facility],[address] [place] [address] 32293 GFR/1.73 sq M.predicted among non-blacks MDRD (S/P/Bld) [Vol rate/Area] mL/min/{1.73_m2} Normal 60 - 999 [facility] Comment on above: Performed By: #### 2 95234 #### [facility],[address] [place] [address] Result Comment: ACCO RDING TO THE NATIONAL KIDNEY DISEASE EDUCATION PROGRAM(NKDE), A NORMAL eGFR IS A VALUE GREATER THAN OR EQUAL TO 60 ML/MIN/1.73 SQ METERS. CHRONIC KIDNEY DISEASE: <60mL/MIN/1.73 SQ METERS KIDNEY FAILURE: <15mL/MIN/1.73 SQ METERS THIS TEST SHOULD ONLY BE USED FOR PATIENTS 18 YEARS OF AGE AND OLDER. Globulin (S) [Mass/Vol] 3.7 g/dL Normal 1.5 - 3.8 [facility] Comment on above: Performed By: #### 2 67656 #### [facility],[address] [place] [address] 14434 Glucose [Mass/Vol] 92 mg/dL Normal 74 - 106 [facility] Comment on above: Performed By: #### 2 97208 #### [facility],[address] [place] [address] 58025 Potassium [Moles/Vol] 4.2 mmol/L Normal 3.5 - 5.1 [facility] Comment on above: Performed By: #### 2 75205 #### [facility],[address] [place] [address] 18104 Protein [Mass/Vol] 6.8 g/dL Normal 6.4 - 8.2 [facility] Comment on above: Performed By: #### 2 43400 #### [facility],[address] [place] [address] 75357 Sodium [Moles/Vol] 141 mmol/L Normal 136 - 145 [facility] Comment on above: Performed By: #### 2 15690 #### [facility],[address] [place] [address] 49721 Urea nitrogen [Mass/Vol] 29 mg/dL High 7 - 18 [facility] Comment on above: Performed By: #### 2 44704 #### [facility],[address] [place] [address] 83201 HEMOGLOBIN A1C (POM)on 01-28 Glucose [Mass/Vol] 131.2 mg/dL High 0.0 - 0.0 [facility] Comment on above: Result Comment: Do HEMOGLOBIN A1C REFERENCE RANGESBLDo Suggested Diagnosis HbA1c(%) HbA1C (mmol/mol Diabetic >/=6.5 >/=48 Prediabetes 5.7 - 6.4 39 - 47 Normal <5.7 <39 Performed By: #### 2 27667 #### [facility],[address] [place] [address] 88778 HbA1c (Bld) [Mass fraction] 6.2 % Normal 0.0 - 6.5 [facility] Comment on above: Performed By: #### 2 23524 #### [facility],[address] [place] [address] 23832 LIPID PROFILEon 01-28-2025 Cholesterol [Mass/Vol] 227 mg/dL Normal 0 - 240 [facility] Comment on above: Performed By: #### 2 31620 #### [facility],[address] [place] [address] 72579 Cholesterol in HDL [Mass/Vol] 109 mg/dL High 40 - 60 [facility] Comment on above: Performed By: #### 2 83004 #### [facility],[address] [place] [address] 90986 Cholesterol in LDL [Mass/Vol] 100 mg/dL Normal 0 - 129 [facility] Comment on above: Performed By: #### 2 71751 #### [facility],[address] [place] [address] 83073 Cholesterol.total/C holesterol in HDL [Mass ratio] 2.1 {ratio} Normal 0.0 - 5.0 [facility] Comment on above: Performed By: #### 2 56700 #### [facility],[address] [place] [address] 91218 Lipid 1996 panel Normal [facility] Comment on above: Result Comment: LIPI D PROFILE Performed By: #### 2 75025 #### [facility],[address] [place] [address] 24011 Triglyceride [Mass/Vol] 92 mg/dL Normal 0 - 150 [facility] Comment on above: Performed By: #### 2 23338 #### [facility],[address] [place] [address] 49939 TSHon 01-28-2025 TSH Qn 6.04 m[IU]/L High 0.35 - 3.74 [facility] Comment on above: Performed By: #### 2 00722 #### [facility],[address] [place] [address] 32015 VITAMIN D, 25 HYDROXYon 01-06 VitD 45.60 ng/mL Normal 30.00 - 100 [facility] Comment on above: Result Comment: 25-O HD3 indicates both endogenous production and supplementation. 25-OHD2 is an indicator of exogenous sources, such as diet or supplementation. Therapy is based on measurement of Total 25-OHD, with levels <20 ng/mL indicative of Vitamin D deficiency, while levels between 20 ng/mL and 30 ng/mL suggest insufficiency. Optimal levels are >=30ng/mL. Vitamin D, 25-OH D3 Not Established Vitamin D, 25-OH D2 Not Established Performed By: #### 2 67576 #### [facility],[address] [facility] [address] Cerv Spine 4 or 5 Viewson Cerv Spine 4 or 5 Views [facility] Imaging Services [address] [place] [id number] Cerv Spine 4 or 5 Views MR#: [id number] Acct: [id number] Name: LORI ALTAMIRANO Rep #: [id number] : 1950 F 74 From: Erwin Garcia PCP: Dr. Leandro Hayes MD Status: DEP AMB Study: Cerv Spine 4 or 5 Views Date of Exam: 01/15/25 Exam# [id number] Ordering Dr: Barbara De La Rosa PROCEDURE: CERV SPINE 4 OR 5 VIEWS 01/15/2025 REASON FOR EXAM: CHRONIC PAIN TECHNIQUE: Four views of the cervical spine COMPARISON: None FINDINGS: See impression RAD/Cerv Spine 4 or 5 Views IMPRESSION: Visualized vertebral body heights are preserved. Chronic appearing fracture deformity at the anteroinferior endplate of the C5 vertebral body. No significant malalignment. Mild multilevel disc space narrowing, greatest from C5 through C7 with associated uncovertebral arthrosis. Mild multilevel facet arthropathy. Negative for abnormal motion. Reading Location: [facility] CC: JANE Vazquez; Dr. Leandro Hayes MD Relay Motorman: Signed Normal [facility] Orthopedic Visit Reporton Orthopedic Visit Report [facility] [address] [place], [place] [address] OFFICE VISIT Date of Service: 01/15/25 MR#: [id number] Acct: [id number] Name: LORI ALTAMIRANO Rep #: [id number] : 1950 Provider: Dr. Татьяна Beckman MD Age/Sex: 74/F Location: [facility] Status: Signed Intake Vital Signs 07/03/19 11:18 01/15/25 09:45 Height 5 ft 4 in 5 ft 4 in Weight: 230 lb BMI 39.4 Intake Visit Reasons: CERVICAL SPINE Chief Complaint: Cervical spine pain Accompanied by: Is patient in pain?: Yes Pain scale (1-10): 8 Allergies No Known Allergies Allergy (Unverified 01/15/25 09:48) Medications ???Medication ???Instructions ???Recorded ???Confirmed ???Type cholecalciferol (vitamin D3) 125 5,000 unit PO DAILY 07/03/1901/15 History mcg (5,000 unit) capsule ferrous sulfate 325 mg (65 mg 325 mg PO DAILY 07/03/19 01/15/25 History iron) tablet multivitamin,tx-iron-min erals 1 tab PO DAILY 07/03/19 01/15/25 H istory (Complete Multivitamin tablet) pravastatin 40 mg tablet 40 mg PO DAILY 07/03/19 01/15/25 H istory ropinirole 0.5 mg tablet 0.5 mg PO QHS 07/03/19 01/15/25 Hi story bacitracin zinc 500 unit/gram 1 applic topical Q8H 01/15/2501/05 History topical ointment losartan 50 mg tablet 75 mg PO DAILY 01/15/25 01/15/25 H istory mecobalamin (vitamin B12) 1,000 1,000 mcg PO QDAY 01/15/25 5 History mcg lozenges Have you fallen in the past year?: No PFSH Medical History (Updated 01/15/25 @ 12:[address] 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 Татьяна Beckman MD 01/15/25 0538. Part of today???s visit was documented by Norbert Segovia MA, acting as scribe. LORI ALTAMIRANO is a 74 year old F here today for cervical spine pain. Pain (location, quality, quantity, radiation): The pain is right in the back of the head on the right side. The pain is a sharp and constant throbbing pain. Sometimes when she hold s her right shoulder up the pain goes into the right shoulder. Onset (date, injury, precipitating event):This started about 5-6 months ago. Patient denies any injuries, she sates that it just came on one day and has been gradually getting worse. Prior Hx (injury, surgery, prior issues with extremity):Patient denies any surgeries with this. Aggravating factor (position, tasks):The pain hurts worse when her head is tilled back, or whenever she moves. Deneis any numnbess or tingling. Treatments (ice/heat , Medication, injections, home exercises):Patient got a shot from Dr. Hernandez on 09/22/2024. That was her first shot, she stated that helped a little bit. She picked up a cooler 4 days after the shot and that's when she felt that pain. Comorbidities (BMI, DM, Inflammatory conditions, blood thinner, chemotherapy):Denies any of these. Social (upper extremity dominance, profession, tobacco/drugs/ETOH:Patie nt denies any smoking or doing drugs. Patient denies any pain on the left. She has pain when she turns her head. Patient got [address] Smyth in September. She has not done any physical therapy. I examined the patient today. She is having pain when she tilts her head back. Patient thinks she is a borderline diabetic, does not take any medication for this. Patient denies any MRI's on the neck. Ortho Exam General General: Yes no acute distress Neurologic: Yes alert and Yes oriented x3 Spine SPINE TESTING CERVICAL THORACIC LUMBAR Musculoskeletal Strength 0=absent - 5=normal Details: Examination the neck shows right paraspinal tenderness in the upper cervical region. Neurologic valuation of upper extremity shows 5 x 5 power normal intervals normal sensations in all dermatomes. Mk's is positive on the left. Left knee reflexes brisk. No clonus. Romberg's is positive. Tandem gait shows mild imbalance. Coding Level of Care Code Off vis,new,level 4 Diagnoses Cervical spine arthritis M47.812 Cervical (more content not included)... Normal [facility] 3D MAMM BILAT SCREENon 09-15 3D MAMM BILAT SCREEN [address] [address] Patient: LORI ALTAMIRANO I. Phone#: : 1950 Age: 73 Gender: F Pt. Type: Out Account: [id number] Location: [facility] Ordering: ANDREA YEPEZ Exam Date: 09/15/2024/11:08 Family Phys: Charge Code: 063476 Physician: Talbot Order #: [id number] Dose#: PROCEDURE: BILATERAL SCREENING BREAST TOMOSYNTHESIS MAMMOGRAM WITH CAD COMPARISON: [facility], 3D BILAT SCREEN, 08/02/2022, 11:04. [facility], 3D BILAT SCREEN, 09/13/2023, 11:17. INDICATIONS: Screening. BREAST COMPOSITION: Scattered areas fibroglandular density. FINDINGS: DIAGNOSTIC CATEGORY 1--NEGATIVE NO CHANGE FROM COMPARISON ASSESSMENT. RIGHT BREAST: No significant suspicious finding. No significant change has occurred. LEFT BREAST: No significant suspicious finding. No significant change has occurred. RECOMMENDATIONS: ROUTINE MAMMOGRAM AND CLINICAL EVALUATION IN 12 MONTHS. PLEASE NOTE: A NORMAL MAMMOGRAM DOES NOT EXCLUDE THE POSSIBILITY OF BREAST CANCER. A CLINICALLY SUSPICIOUS PALPABLE LUMP SHOULD BE BIOPSIED. THIS FACILITY UTILIZES A REMINDER SYSTEM TO ENSURE THAT ALL PATIENTS RECEIVE REMINDER LETTERS FOR APPOINTMENTS. THIS INCLUDES REMINDERS FOR ROUTINE MAMMOGRAMS, DIAGNOSITC MAMMOGRAMS, OR OTHER BREAST IMAGING INTERVENTIONS WHEN APPROPRIATE. THIS PATIENT WILL BE PLACED IN THE APPROPRIATE REMINDER SYSTEM. Dictated by: Rosetta Guallpa MD on 09/15/2024 at 17:37 Approved by: Rosetta Guallpa MD on 09/15/2024 at 17:40 Normal [facility] CERVICAL SP COMPLETE, 4 OR 5 VIEWSon 09-11-2024 CERVICAL SP COMPLETE, 4 OR 5 VIEWS [place] [address] Patient: LORI ALTAMIRANO I. Phone#: : 1950 Age: 73 Gender: F Pt. Type: Out Account: [id number] Location: [facility] Ordering: ANDREA YEPEZ Exam Date: 09/11/2024/10:47 Family Phys: Charge Code: 823080 Physician: Talbot Order #: [id number] Dose#: PROCEDURE: X-RAY CERVICAL SPINE W/ AP, LATERAL, ODONTOID, AND OLBIQUES VIEWS COMPARISON: None. INDICATIONS: Pain. FINDINGS: Study limited by patient ability to position for exam. BONES: Vertebral bodies are maintained in height. The dens is obscured on the odontoid view but unremarkable in configuration on the lateral view. There is right C1-2 facet joint space loss, spurring and subchondral sclerosis. There is mild osseous foraminal narrowing at C5-6 DISC SPACES: Disc height loss at C5-6 and C6-7 PARASPINOUS: Negative. No paraspinous abnormality is seen. OTHER: Negative. CONCLUSION: 1. Severe asymmetric right C1-2 facet joint space loss and spurring 2. C5-6 disc height loss and osseous foraminal narrowing Dictated by: Tatyana Bingham MD on 09/11/2024 at 14:37 Approved by: Tatyana Bingham MD on 09/11/2024 at 14:50 Normal [facility] Final Surgical Pathology Rep [facility] 07-27-2024 Final Surgical Pathology Report . 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 Smallest fragment may not survive processing. Fecal debris also identified. TS-1 Cathy Swift, Grossing Polysom Tech/ Dr. Tushar Wallace, Pathologist Performed by Cathy Swift MICROSCOPIC DESCRIPTION: The microscopic examination is performed, except in the case of Gross Only. Electronically Signed by Pathology Report verified by [facility] DARYN FAJARDO MD Sign out Date: 07/27/2024 08:14 Performing Lab: [facility], [address] [place] [address] Pathology Dept Disclaimer If ancillary studies were utilized, the following Laboratory Developed Test (LDT) disclaimer will apply: Under CLIA requirements, [facility]ology Laboratory is qualified to perform high complexity testing. For all ancillary stains, positive and negative controls stain appropriately. Performance characteristics of immunohistochemical and chromogenic in-situ hybridization tests have been determined by [facility]ology [facility]. These tests are used for clinical purposes, They should not be regarded as investigational or for research. Normal [facility] 10-11-2019 Anion gap [Moles/Vol] 20.4 mmol/L Normal 15-22 [facility] Comment on above: Performed By: #### L 100.0010 #### [facility] [address] [place] [address] 56071 Calcium [Mass/Vol] 9.8 mg/dL Normal 8.8-10.2 [facility] Comment on above: Performed By: #### L 100.0010 #### [facility] [address] [place] [address] 74284 Chloride [Moles/Vol] 103 mmol/L Normal 98-107 [facility] Comment on above: Performed By: #### L 100.0010 #### [facility] [address] [place] [address] 77824 CO2 [Moles/Vol] 23 mmol/L Normal 22-29 [facility] Comment on above: Performed By: #### L 100.0010 #### [facility] [address] [place] [address] 57843 Creatinine [Mass/Vol] 0.62 mg/dL Normal 0.50-0.90 [facility] Comment on above: Performed By: #### L 100.0010 #### [facility] [address] [place] [address] 13116 eGFR if AFR SIDDHARTHA > 60 ml/min/1.73m2 Normal [facility] Comment on above: Result Comment: eGFR >= 60 Indicates normal kidney function. * eGFR IS AN ESTIMATE * (AFR SIDDHARTHA = ) (non-AFR AM = NON-) MDRD calculation used in the eGFR should not be used to dose medications. For further limitations of the eGFR please refer to the Physician Website or the National Kidney Disease Education Program website (www.nkdep.nih.gov). Performed By: #### L 100.0010 #### [facility] [address] [place] [address] 24816 eGFR nonAFR Siddhartha > 60 ml/Min/1.73m2 Normal [facility] Comment on above: Performed By: #### L 100.0010 #### [facility] [address] [place] [address] 78726 Glucose [Mass/Vol] 169 mg/dL High 82-115 [facility] Comment on above: Performed By: #### L 100.0010 #### [facility] [address] [place] [address] 33949 Potassium [Moles/Vol] 4.4 mmol/L Normal 3.5-5.0 [facility] Comment on above: Performed By: #### L 100.0010 #### [facility] [address] [place] [address] 00221 Sodium [Moles/Vol] 142 mmol/L Normal 135-145 [facility] Comment on above: Performed By: #### L 100.0010 #### [facility] [address] [place] [address] 80396 Urea nitrogen [Mass/Vol] 9 mg/dL Normal 8-23 [facility] Comment on above: Performed By: #### L 100.0010 #### [facility] [address] [place] [address] 24321 [facility] 10-11-2019 Basophils (Bld) [#/Vol] 0.00 x10(3) Normal 0.00-0.10 [facility] Comment on above: Performed By: #### L 200.0010 #### [facility] [address] [place] [address] 72024 Basophils/100 WBC (Bld) 0.2 % Normal 0.0-1.0 [facility] Comment on above: Performed By: #### L 200.0010 #### [facility] [address] [place] [address] 90625 Eosinophils (Bld) [#/Vol] 0.00 x10(3) Normal 0.00-0.54 [facility] Comment on above: Performed By: #### L 200.0010 #### [facility] [address] [place] [address] 10382 Eosinophils/100 WBC (Bld) 0.0 % Low 0.5-4.9 [facility] Comment on above: Performed By: #### L 200.0010 #### [facility] [address] [place] [address] 72233 Erythrocyte distribution width (RBC) [Ratio] 12.8 % Normal 12.5-15.7 [facility] Comment on above: Performed By: #### L 200.0010 #### [facility] [address] [place] [address] 75747 Hematocrit (Bld) [Volume fraction] 40.0 % Normal 36.0-48.0 [facility] Comment on above: Performed By: #### L 200.0010 #### [facility] [address] [place] [address] 25157 Hemoglobin (Bld) [Mass/Vol] 13.4 g/dL Normal 12.0-16.0 [facility] Comment on above: Performed By: #### L 200.0010 #### [facility] [address] [place] [address] 37455 Lymphocytes (Bld) [#/Vol] 0.70 x10(3) Low 1.00-3.50 [facility] Comment on above: Performed By: #### L 200.0010 #### [facility] [address] [place] [address] 42198 Lymphocytes/100 WBC (Bld) 5.0 % Low 16.0-48.0 [facility] Comment on above: Performed By: #### L 200.0010 #### [facility] [address] [place] [address] 15263 MCH (RBC) [Entitic mass] 29.8 pg Normal 28.5-32.9 [facility] Comment on above: Performed By: #### L 200.0010 #### [facility] [address] [place] [address] 35108 MCHC (RBC) [Mass/Vol] 33.5 g/dL Normal 33.0-36.0 [facility] Comment on above: Performed By: #### L 200.0010 #### [facility] [address] [place] [address] 33039 MCV (RBC) [Entitic vol] 88.9 fL Normal 80.0-99.0 [facility] Comment on above: Performed By: #### L 200.0010 #### [facility] [address] [place] [address] 59918 Monocytes (Bld) [#/Vol] 0.20 x10(3) Low 0.30-0.80 [facility] Comment on above: Performed By: #### L 200.0010 #### [facility] [address] [place] [address] 99800 Monocytes/100 WBC (Bld) 1.7 % Low 4.3-11.2 [facility] Comment on above: Performed By: #### L 200.0010 #### [facility] [address] [place] [address] 58498 Neutrophils (Bld) [#/Vol] 13.50 x10(3) High 1.40-6.50 [facility] Comment on above: Performed By: #### L 200.0010 #### [facility] [address] [place] [address] 99850 Neutrophils/100 WBC (Bld) 93.1 % High 45.0-73.0 [facility] Comment on above: Performed By: #### L 200.0010 #### [facility] [address] [place] [address] 37016 Platelet mean volume (Bld) [Entitic vol] 7.0 fL Low 7.5-9.5 [facility] Comment on above: Performed By: #### L 200.0010 #### [facility] [address] [place] [address] 33449 Platelets (Bld) [#/Vol] 540 X10(3) High 150-450 [facility] Comment on above: Performed By: #### L 200.0010 #### [facility] [address] [place] [address] 16671 RBC (Bld) [#/Vol] 4.50 x10(6) Normal 3.30-5.00 [facility] Comment on above: Performed By: #### L 200.0010 #### [facility] [address] [place] [address] 45499 WBC (Bld) [#/Vol] 14.5 x10(3) High 4.5-10.0 [facility] Comment on above: Performed By: #### L 200.0010 #### [facility] [address] [place] [address] 55116 CLINICAL RESUMEon 10-11-[address] [place] [address] HEALTH INFORMATION MANAGEMENT CLINICAL RESUME Patient: LORI ALTAMIRANO COLLIN D M.D. [id number] F Status: DIS IN 2SWEST 2930-B Date of Admission: 10/10/19 Date of Discharge: 10/11/19 DISCHARGE DIAGNOSES: 1. Bronchitis and bronchospasm after an influenza infection. 2. Hypertension. 3. Hyperlipidemia. HISTORY: This is a 68-year-old female who presents because of worsening cough and shortness of breath. She was in [facility] when she was diagnosed with influenza. She completed a course of Tamiflu. When she saw her PCP, she had continued symptoms especially of cough and started on azithromycin. She was also given albuterol nebulizers. However, the cough worsened, so she came to the emergency room. She was felt to be mildly hypoxic on room air at 88% to 91%, so was admitted for this. The patient initially tried on just nebulizer treatments, but continued to have fairly severe bronchospasm and cough, so she was given IV steroids for a day. She was started on Levaquin here as well. After being on the steroids for 24 hours and given Hycodan for cough, the patient's airways were markedly less wheezy and rhonchorous and she was deemed to be stable for discharge. She was not hypoxic at the time of discharge. DISCHARGE MEDICATIONS: On discharge, 1. The patient will continue just a prednisone burst 40 mg daily for 5 days. 2. She was given a prescription for Hycodan 5 mL every 4-6 hours as needed for cough. 3. She will otherwise finish off the azithromycin that she was given. 4. She is to use the albuterol nebulizer 4 times a day for at least 2 days and then as needed. 5. She will continue her Pravachol 40 mg at night. 6. Requip 1 mg at night. 7. Cozaar 50 mg daily. DISCHARGE FOLLOWUP: She should follow up with her primary care provider within 5 to 7 days. Report#: Dict ID [id number] / Int ID [id number] 10/11/19 1619 ABEL CAMILO M.D. cc: ABEL CAMILO M.D. << Signature on File>> Reported By: ABEL CAMILO M.D. Signed By: ABEL CAMILO M.D. Tests performed at: [address] [address] Normal [facility] PROGRESSon 10-11-2019 PROGRESS HNO ID: [id number] Author: Abel Camilo MD Service: ? Author Type: Physician Type: Progress Notes Filed: 10/11/2019 1:27 PM Note Text: [place] [address] QUICK NOTE Patient: LORI ALTAMIRANO ABEL CAMILO M.D. [id number] F Status: ADM IN 2SWEST 2930-B Report Date AND Time: 10/11/19 1325 Change Of Status Additional Notes Discharge dictated #[id number] 10/11/19 1326 ABEL CAMILO M.D. << Signature on File>> Reported By: ABEL CAMILO M.D. Signed By: ABEL CAMILO M.D. Tests performed at: [address] [address] Normal [facility] 10-10-2019 Anion gap [Moles/Vol] 18.7 mmol/L Normal 15-22 [facility] Comment on above: Performed By: #### L 100.0010 #### [facility] [address] [place] [address] 24384 Calcium [Mass/Vol] 9.0 mg/dL Normal 8.8-10.2 [facility] Comment on above: Performed By: #### L 100.0010 #### [facility] [address] [place] [address] 17907 Chloride [Moles/Vol] 103 mmol/L Abnormal 98-107 [facility] Comment on above: Result Comment: De lta check (#) indicates a significant change in this laboratory value. It needs clinical correlation with patient situation or treatment. If the change in this test does not match your clinical situation or therapy, you may wish to re-test to verify the result. Performed By: #### L 100.0010 #### [facility] - LAB[facility]ATORY [address] [place] [address] 20891 CO2 [Moles/Vol] 23 mmol/L Normal 22-29 [facility] Comment on above: Performed By: #### L 100.0010 #### [facility] [address] [place] [address] 00237 Creatinine [Mass/Vol] 0.65 mg/dL Normal 0.50-0.90 [facility] Comment on above: Performed By: #### L 100.0010 #### [facility] [address] [place] [address] 39197 eGFR if AFR SIDDHARTHA > 60 ml/min/1.73m2 Normal [facility] Comment on above: Result Comment: eGFR >= 60 Indicates normal kidney function. * eGFR IS AN ESTIMATE * (AFR SIDDHARTHA = ) (non-AFR AM = NON-) MDRD calculation used in the eGFR should not be used to dose medications. For further limitations of the eGFR please refer to the Physician Website or the National Kidney Disease Education Program website (www.nkdep.nih.gov). Performed By: #### L 100.0010 #### [facility] [address] [place] [address] 66729 eGFR nonAFR Siddhartha > 60 ml/Min/1.73m2 Normal [facility] Comment on above: Performed By: #### L 100.0010 #### [facility] [address] [place] [address] 67078 Glucose [Mass/Vol] 120 mg/dL High 82-115 [facility] Comment on above: Performed By: #### L 100.0010 #### [facility] [address] [place] [address] 35290 Potassium [Moles/Vol] 3.7 mmol/L Normal 3.5-5.0 [facility] Comment on above: Performed By: #### L 100.0010 #### [facility] [address] [place] [address] 28260 Sodium [Moles/Vol] 141 mmol/L Normal 135-145 [facility] Comment on above: Performed By: #### L 100.0010 #### [facility] [address] [place] [address] 26291 Urea nitrogen [Mass/Vol] 9 mg/dL Normal 8-23 [facility] Comment on above: Performed By: #### L 100.0010 #### [facility] - [facility] [address] [place] [address] 04279 CBCon 10-10-2019 Basophils (Bld) [#/Vol] 0.00 x10(3) Normal 0.00-0.10 [facility] Comment on above: Performed By: #### L 200.0010 #### [facility] [address] [place] [address] 37029 Basophils/100 WBC (Bld) 0.5 % Normal 0.0-1.0 [facility] Comment on above: Performed By: #### L 200.0010 #### [facility] [address] [place] [address] 98555 Eosinophils (Bld) [#/Vol] 0.20 x10(3) Normal 0.00-0.54 [facility] Comment on above: Performed By: #### L 200.0010 #### [facility] [address] [place] [address] 99840 Eosinophils/100 WBC (Bld) 2.6 % Normal 0.5-4.9 [facility] Comment on above: Performed By: #### L 200.0010 #### [facility] [address] [place] [address] 94757 Erythrocyte distribution width (RBC) [Ratio] 12.8 % Normal 12.5-15.7 [facility] Comment on above: Performed By: #### L 200.0010 #### [facility] [address] [place] [address] 82259 Hematocrit (Bld) [Volume fraction] 34.4 % Low 36.0-48.0 [facility] Comment on above: Performed By: #### L 200.0010 #### [facility] [address] [place] [address] 03551 Hemoglobin (Bld) [Mass/Vol] 11.7 g/dL Low 12.0-16.0 [facility] Comment on above: Performed By: #### L 200.0010 #### [facility] [address] [place] [address] 62155 Lymphocytes (Bld) [#/Vol] 0.90 x10(3) Low 1.00-3.50 [facility] Comment on above: Performed By: #### L 200.0010 #### [facility] [address] [place] [address] 71392 Lymphocytes/100 WBC (Bld) 9.9 % Low 16.0-48.0 [facility] Comment on above: Performed By: #### L 200.0010 #### [facility] [address] [place] [address] 79515 MCH (RBC) [Entitic mass] 30.0 pg Normal 28.5-32.9 [facility] Comment on above: Performed By: #### L 200.0010 #### [facility] [address] [place] [address] 62110 MCHC (RBC) [Mass/Vol] 34.0 g/dL Normal 33.0-36.0 [facility] Comment on above: Performed By: #### L 200.0010 #### [facility] [address] [place] [address] 70814 MCV (RBC) [Entitic vol] 88.1 fL Normal 80.0-99.0 [facility] Comment on above: Performed By: #### L 200.0010 #### [facility] [address] [place] [address] 98837 Monocytes (Bld) [#/Vol] 0.80 x10(3) Normal 0.30-0.80 [facility] Comment on above: Performed By: #### L 200.0010 #### [facility] [address] [place] [address] 73605 Monocytes/100 WBC (Bld) 9.0 % Normal 4.3-11.2 [facility] Comment on above: Performed By: #### L 200.0010 #### [facility] [address] [place] [address] 07385 Neutrophils (Bld) [#/Vol] 7.10 x10(3) High 1.40-6.50 [facility] Comment on above: Performed By: #### L 200.0010 #### [facility] [address] [place] [address] 50366 Neutrophils/100 WBC (Bld) 78.0 % High 45.0-73.0 [facility] Comment on above: Performed By: #### L 200.0010 #### [facility] [address] [place] [address] 96901 Platelet mean volume (Bld) [Entitic vol] 6.9 fL Low 7.5-9.5 [facility] Comment on above: Performed By: #### L 200.0010 #### [facility] [address] [place] [address] 69115 Platelets (Bld) [#/Vol] 433 X10(3) Normal 150-450 [facility] Comment on above: Performed By: #### L 200.0010 #### [facility] [address] [place] [address] 14676 RBC (Bld) [#/Vol] 3.90 x10(6) Normal 3.30-5.00 [facility] Comment on above: Performed By: #### L 200.0010 #### [facility] [address] [place] [address] 81662 WBC (Bld) [#/Vol] 9.2 x10(3) Normal 4.5-10.0 [facility] Comment on above: Performed By: #### L 200.0010 #### [facility] [address] [place] [address] 21920 PROGRESSon 10-10-2019 PROGRESS HNO ID: [id number] Author: Abel Camilo MD Service: ? Author Type: Physician Type: Progress Notes Filed: 10/10/2019 3:57 PM Note Text: [place] [address] PROGRESS NOTES Patient: LORI ALTAMIRANO COLLIN D M.D. [id number] [age] F Status: ADM Suri 2SWEST 2930-B Report Date AND Time: 10/10/19 1551 Subjective * Please Note: All systems reviewed and all are negative except systems noted. Constant coughing. Minimal sputum however. Cough very barky. Still on NC oxygen and wheezy. Objective Focused Exam Performed General Appearance Alert, Oriented X3, Cooperative, Appears Stated Age, No Acute Distress HEENT Atraumatic, Mucous Membr. moist/pink, WNL Lungs Obstruction with only fair airway sounds with expiratory rhonchi and wheeze Neck Supple, No JVD Cardiovascular NSR, Normal S1, S2 Abdomen Normal Bowel Sounds, Soft, No Tenderness Extremities No Cyanosis, No Edema Skin No Rashes, No Breakdown, No Significant Lesion Neurological Normal Speech, Normal Tone, Intact/non-focal, Age Appropriate Psych/Mental Status Normal Affect, Normal Mood, Pleasant Reviewed - Daily Reviewed Information Medications, HANDP, Labs Labs/Vitals/Meds/Orders Hematology Range/Units 10/10 0502 Hematology WBC 4.5 - 10.0 x10(3) 9.2 RBC 3.30 - 5.00 x10(6) 3.90 Hgb 12.0 - 16.0 g/dL 11.7 L Hct 36.0 - 48.0 % 34.4 L MCV 80.0 - 99.0 fl 88.1 MCH 28.5 - 32.9 pg 30.0 MCHC 33.0 - 36.0 g/dL 34.0 RDW 12.5 - 15.7 % 12.8 Plt Count 150 - 450 X10(3) 433 MPV 7.5 - 9.5 fl 6.9 L Neut % (Auto) 45.0 - 73.0 % 78.0 H Lymph % (Auto) 16.0 - 48.0 % 9.9 L [place] % (Auto) 4.3 - 11.2 % 9.0 Eos % (Auto) 0.5 - 4.9 % 2.6 Baso % (Auto) 0.0 - 1.0 % 0.5 Neut # (Auto) 1.40 - 6.50 x10(3) 7.10 H Lymph # (Auto) 1.00 - 3.50 x10(3) 0.90 L [place] # (Auto) 0.30 - 0.80 x10(3) 0.80 Eos # (Auto) 0.00 - 0.54 x10(3) 0.20 Baso # (Auto) 0.00 - 0.10 x10(3) 0.00 Chemistry Range/Units 10/10 0502 Chemistry Sodium 135 - 145 mmol/L 141 Potassium 3.5 - 5.0 mmol/L 3.7 Chloride 98 - 107 mmol/L 103 Carbon Dioxide 22 - 29 mmol/L 23 Anion Gap 15 - 22 mmol/L 18.7 BUN 8 - 23 mg/dL 9 Creatinine 0.50 - 0.90 mg/dL 0.65 Est GFR ( Amer) > 60 ml/min/1.73m2 Est GFR (Non-Af Amer) > 60 ml/Min/1.73m2 Glucose 82 - 115 mg/dL 120 H Calcium 8.8 - 10.2 mg/dL 9.0 Vital Signs Date Time Temp Pulse Resp B/P B/P Pulse O2 O2 Flow FiO2 Mean Ox Delivery Rate 10/10 1543 98.0 85 20 140/74 94 10/10 1440 1.5L 10/10 1205 97.7 87 20 173/99 92 10/10 1106 1.5L 10/10 0925 87 166/79 10/10 0813 98.4 87 20 166/79 92 10/10 0800 98.4 87 20 166/79 92 10/10 0707 RA 10/10 0707 RA 10/10 0707 2LPM 10/10 0529 95 Nasal Cannula 10/10 0241 2LPM 10/09 2341 98.3 94 20 159/81 92 10/09 2236 2LPM 10/09 2147 98.4 95 22 153/75 93 Nasal 2 Cannula 10/09 1916 98.4 97 22 153/75 92 10/09 1853 2LPM 10/09 1853 2LPM 10/09 1853 2LPM 10/09 1637 99.4 90 Intake AND Output 10/10 0700 10/09 2300 10/09 1500 Intake Total 409 Output Total Balance 409 Current Medications Sig/Nitesh Start time Last Medication Dose Route Stop Time Status Admin Levofloxacin 100 ML Q24H 10/10 1700 AC IV Ropinirole HCl 0.5 MG BID@1500,2030 04 1500 AC 10/10 PO 1440 Hydrocodone Bit/ 5 ML Q4-6HPRN PRN 10/10 1445 AC Homatropine Methylb PO Methylprednisolone 40 MG Q8HST 10/10 1445 AC 10/10 Sodium Succinate IV 1459 Losartan Potassium 50 MG QDAY 10/10 0900 AC 10/10 PO 0925 Pravastatin Sodium 10 MG HS 10/09 2100 AC 10/09 PO 2142 Albuterol/Ipratropium 3 ML Q4H SVN PROTOCOL 10/09 1800 r 10/10 IH 1433 Albuterol/Ipratropium 3 ML PRN SVN PROTOCOL PRN 10/09 1745 r IH Acetaminophen 650 MG Q4-6HPRN PRN 10/09 1715 AC 10/10 PO 1321 Albuterol/Ipratropium 3 ML PROTOCOL SVN 10/09 1715 DC IH Benzocaine/Menthol 1 LUIS ARMANDO PRN PRN 10/09 1715 AC 10/09 MT 2142 Benzonatate 200 MG TIDPRN PRN 10/09 1715 AC PO Guaifenesin See Dose Q4HPRN PRN 10/09 1715 AC 10/09 Insts (1) PO 2142 Ondansetron HCl 4 MG Q4HPRN PRN 10/09 1715 AC IV Sodium Chloride 1,000 ML .[id number] 10/09 1645 DC 10/10 IV 1144 Levofloxacin 100 ML NOW STA 10/09 1644 DC 10/09 IV 10/09 1743 1729 Dose Instructions: (1)Guaifenesin: 10 ML (200 MG) Orders Procedure Date/time Status COMPLETE BLOOD COUNT 10/11 0400 Active BASIC METABOLIC PANEL 10/11 0400 Active REGULAR DIET 10/10 B Active Change Patient Status To.... 10/10 1550 Active COMPLETE BLOOD COUNT 10/10 0400 Complete BASIC METABOLIC PANEL 10/10 0400 Complete REGULAR DIET 10/09 D Active RT: SPO2 Therapy 10/09 1717 Active RT: O2 Therapy 10/09 171 Active RT: Assessment 10/09 171 Active RT COMMUNICATION 10/09 170 Active RT TREATMENT ORDER 10/09 170 Active OXYGEN PROTOCOL 10/09 170 Active VS-Vitals per nursing protocol 10/09 1707 Active Activity-Up as Tolerated 10/09 1707 Active Apply IPC/SCD/Venodynes/VTE 10/09 1707 Active Notify/Chart - Atraumatic Fall 10/09 1707 Active zVTE Prophylaxis Education 10/09 1708 Active zPT DIAGNOSIS 10/09 1707 Active Code Status 10/09 1707 Active Adult Emergency [id number] 10/09 1707 Active Admit/Assign to.... 10/09 1707 Active RESPIRATORY CULTURE/GRAM STAIN 10/09 1707 Active Pt requires stay - bed needed 10/09 1651 Active Plan Plans Additional Comments 1. No CAP (community acquired pneumonia) For me no evidence of pneumonia either clinically or radiographically. Patient with bronchitis and obstruction. Likely due to coughing so much and after influenza. Start iv steroids, around the clock nebs. Agree with antibiotics. 2. HTN (hypertension) Assessment/Plan continue losartan 3. HLD (hyperlipidemia) Assessment/Plan continue pravastatin 4. RLS (restless legs syndrome) Assessment/Plan continue Requip HS Abel Camilo MD 10/10/19 1556 ABEL CAMILO M.D. << Signature on File>> Reported By: ABEL CAMILO M.D. Signed By: ABEL CAMILO M.D. Tests performed at: [address] [address] Normal [facility] BMPon 10-09-2019 Anion gap [Moles/Vol] 18.1 mmol/L Normal 15-22 [facility] Comment on above: Performed By: #### L 100.0010 #### [facility] [address] [place] [address] 00470 Calcium [Mass/Vol] 9.3 mg/dL Normal 8.8-10.2 [facility] Comment on above: Performed By: #### L 100.0010 #### [facility] [address] [place] [address] 99902 Chloride [Moles/Vol] 96 mmol/L Low 98-107 [facility] Comment on above: Performed By: #### L 100.0010 #### [facility] [address] [place] [address] 00427 CO2 [Moles/Vol] 27 mmol/L Normal 22-29 [facility] Comment on above: Performed By: #### L 100.0010 #### [facility] [address] [place] [address] 42677 Creatinine [Mass/Vol] 0.72 mg/dL Normal 0.50-0.90 [facility] Comment on above: Performed By: #### L 100.0010 #### [facility] [address] [place] [address] 74569 eGFR if AFR SIDDHARTHA > 60 ml/min/1.73m2 Normal [facility] Comment on above: Result Comment: eGFR >= 60 Indicates normal kidney function. * eGFR IS AN ESTIMATE * (AFR SIDDHARTHA = ) (non-AFR AM = NON-) MDRD calculation used in the eGFR should not be used to dose medications. For further limitations of the eGFR please refer to the Physician Website or the National Kidney Disease Education Program website (www.nkdep.nih.gov). Performed By: #### L 100.0010 #### [facility] [address] [place] [address] 50965 eGFR nonAFR Siddhartha > 60 ml/Min/1.73m2 Normal [facility] Comment on above: Performed By: #### L 100.0010 #### [facility] [address] [place] [address] 69438 Glucose [Mass/Vol] 106 mg/dL Normal 82-115 [facility] Comment on above: Performed By: #### L 100.0010 #### [facility] [address] [place] [address] 56871 Potassium [Moles/Vol] 4.1 mmol/L Normal 3.5-5.0 [facility] Comment on above: Performed By: #### L 100.0010 #### [facility] [address] [place] [address] 30418 Sodium [Moles/Vol] 137 mmol/L Normal 135-145 [facility] Comment on above: Performed By: #### L 100.0010 #### [facility] [address] [place] [address] 78518 Urea nitrogen [Mass/Vol] 12 mg/dL Normal 8-23 [facility] Comment on above: Performed By: #### L 100.0010 #### [facility] [address] [place] [address] 87426 CBCon 10-09-2019 Basophils (Bld) [#/Vol] 0.00 x10(3) Normal 0.00-0.10 [facility] Comment on above: Performed By: #### L 200.0010 #### [facility] [address] [place] [address] 57143 Basophils/100 WBC (Bld) 0.5 % Normal 0.0-1.0 [facility] Comment on above: Performed By: #### L 200.0010 #### [facility] [address] [place] [address] 84944 Eosinophils (Bld) [#/Vol] 0.30 x10(3) Normal 0.00-0.54 [facility] Comment on above: Performed By: #### L 200.0010 #### [facility] [address] [place] [address] 82832 Eosinophils/100 WBC (Bld) 2.5 % Normal 0.5-4.9 [facility] Comment on above: Performed By: #### L 200.0010 #### [facility] [address] [place] [address] 20159 Erythrocyte distribution width (RBC) [Ratio] 12.9 % Normal 12.5-15.7 [facility] Comment on above: Performed By: #### L 200.0010 #### [facility] [address] [place] [address] 15608 Hematocrit (Bld) [Volume fraction] 38.9 % Normal 36.0-48.0 [facility] Comment on above: Performed By: #### L 200.0010 #### [facility] [address] [place] [address] 33637 Hemoglobin (Bld) [Mass/Vol] 13.2 g/dL Normal 12.0-16.0 [facility] Comment on above: Performed By: #### L 200.0010 #### [facility] [address] [place] [address] 62570 Lymphocytes (Bld) [#/Vol] 1.00 x10(3) Normal 1.00-3.50 [facility] Comment on above: Performed By: #### L 200.0010 #### [facility] [address] [place] [address] 86027 Lymphocytes/100 WBC (Bld) 9.7 % Low 16.0-48.0 [facility] Comment on above: Performed By: #### L 200.0010 #### [facility] [address] [place] [address] 43810 MCH (RBC) [Entitic mass] 29.8 pg Normal 28.5-32.9 [facility] Comment on above: Performed By: #### L 200.0010 #### [facility] [address] [place] [address] 35548 MCHC (RBC) [Mass/Vol] 33.9 g/dL Normal 33.0-36.0 [facility] Comment on above: Performed By: #### L 200.0010 #### [facility] [address] [place] [address] 21526 MCV (RBC) [Entitic vol] 87.9 fL Normal 80.0-99.0 [facility] Comment on above: Performed By: #### L 200.0010 #### [facility] [address] [place] [address] 88186 Monocytes (Bld) [#/Vol] 0.80 x10(3) Normal 0.30-0.80 [facility] Comment on above: Performed By: #### L 200.0010 #### [facility] [address] [place] [address] 47450 Monocytes/100 WBC (Bld) 7.2 % Normal 4.3-11.2 [facility] Comment on above: Performed By: #### L 200.0010 #### [facility] [address] [place] [address] 55316 Neutrophils (Bld) [#/Vol] 8.60 x10(3) High 1.40-6.50 [facility] Comment on above: Performed By: #### L 200.0010 #### [facility] [address] [place] [address] 39806 Neutrophils/100 WBC (Bld) 80.1 % High 45.0-73.0 [facility] Comment on above: Performed By: #### L 200.0010 #### [facility] [address] [place] [address] 03047 Platelet mean volume (Bld) [Entitic vol] 6.7 fL Low 7.5-9.5 [facility] Comment on above: Performed By: #### L 200.0010 #### [facility] [address] [place] [address] 32029 Platelets (Bld) [#/Vol] 452 X10(3) High 150-450 [facility] Comment on above: Performed By: #### L 200.0010 #### [facility] [address] [place] [address] 37775 RBC (Bld) [#/Vol] 4.42 x10(6) Normal 3.30-5.00 [facility] Comment on above: Performed By: #### L 200.0010 #### [facility] [address] [place] [address] 12514 WBC (Bld) [#/Vol] 10.7 x10(3) High 4.5-10.0 [facility] Comment on above: Performed By: #### L 200.0010 #### [facility] [address] [place] [address] 41525 CHEST (TWO VIEWS) - CXRon CHEST (TWO VIEWS) - CXR [address] [address] Name: LORI ALTAMIRANO Phys: RUDY BERNABE M.D. : [birth year] Age: 68 Sex: F Acct: [id number] Loc: ED Exam Date: 10/09/19 Status: REG ER Radiology No.: [id number] Unit Number: [id number] Exam # Type/Exam [id number] RAD / CHEST (TWO VIEWS) - CXR XR CHEST 2 VIEWS CLINICAL STATEMENT: Cough and congestion and body aches. COMPARISON: None. FINDINGS: Pulmonary vascular cephalization, veiling of the lower lumbosacral, scant effusions and cardiomegaly are observed. No lobar consolidation or pneumothorax is seen. IMPRESSION: 1. Mild pulmonary edema pattern. Electronically signed by: Abraham Fonseca DO 10/09/2019 3:16 PM BLUE CRABBER < > Reported By: ABRAHAM FONSECA D.O. Signed In PowerScribe By: ABRAHAM FONSECA D.O. << Signature on File>> Reported By: ABRAHAM FONSECA D.O. Signed By: ABRAHAM FONSECA D.O. Tests performed at: [address] [address] Normal [facility] ED PROV NOTEon 10-09-2019 ED PROV NOTE HNO ID: [id number] Author: Rudy Bernabe Service: ? Author Type: Physician Type: ED Provider Notes Filed: 10/09/2019 10:48 PM Note Text: [place] [address] HEALTH INFORMATION MANAGEMENT EMERGENCY DEPARTMENT REPORT Patient: LORI ALTAMIRANO RUDY BERNABE M.D. [id number] [age] F Status: ADM [address] 2930-B Date of Service: 10/09/19 PHYSICIAN: Leandro Hayes M.D. CHIEF COMPLAINT: Cough, body aches, headache, shortness of breath. HISTORY OF PRESENT ILLNESS: A 68-year-old female who presents with the following symptoms. She is a normally healthy 68 -year-old female, who was at [place], [place] last week . She got sick out there with generalized body aches, rhinorrhea, cough, fever, chills, and went to an urgent care center where she was diagnosed with influenza based on a swab. She was started on Tamiflu and took 9 of the 10 pills. She returned to [place]. She is still not breathing well, still coughing a lot, feeling more short of breath. The patient saw her primary care physician yesterday, who started her on albuterol nebulizer treatments at home and a Z-Daniel. She comes in today and states she still is feeling worse. No history of COPD, asthma, congestive heart failure , or lung disease. The cough is nonproductive. She reports she has continued to feel fever and chill sensation. She has been tired. Everything is exacerbated by exertion. The patient has no heaviness in her chest. No leg swelling. No abdominal pain, nausea, vomiting. She is very fatigued. She has had minimal sore throat and rhinorrhea. REVIEW OF SYSTEMS: The patient has had no vomiting, diarrhea, urinary symptoms, or rash. Further review of systems are negative. PAST MEDICAL HISTORY: History of hysterectomy, cholecystectomy, hypertension. MEDICATIONS: She is on pravastatin and losartan at home. SOCIAL HISTORY: . No alcohol or tobacco use. Retired [employer]. PHYSICAL EXAMINATION: VITAL SIGNS: Finds a 68-year-old female, who most of the time here her saturations were 88% and 91% on room air, T-max is 99.4. She is normotensive. HEENT: She has a frequent dry cough. No sinus tenderness to percussion. No rhinorrhea. The patient has mild pharyngeal erythema. No exudate was seen. NECK: No JVD in the neck. Some cervical lymphadenopathy in neck. RESPIRATORY: Lung flynn bilateral, mild wheezing and diminished breath sounds. CARDIAC: Sounds rapid and regular. ABDOMEN: Soft. No tenderness. No distention. PERIPHERAL: She is A and O x3. No sensory or motor deficits. EMERGENCY DEPARTMENT COURSE: Workup here. The patient had a white count of 11,000. Chest x-ray in my opinion is bilateral infiltrates. Radiologist read as pulmonary edema, but I dispute that because the patient's B-peptide is normal and her exam is not compatible with pulmonary edema. The patient has had a breathing treatment here. She remains hypoxic. I am concerned about that , I am concerned about the post influenza pneumonia. The patient will be admitted. IMPRESSION: Bilateral pneumonia with hypoxia. Report#: Dict ID [id number] / Int ID [id number] cc: Leandro Hayes MD 10/09/19 2244 RUDY BERNABE M.D. cc: RUDY BERNABE M.D.; LEANDRO HAYES M.D. << Signature on File>> Reported By: RUDY BERNABE M.D. Signed By: RUDY BERNABE M.D. Tests performed at: [place] [id number] [place], [place] [address] Normal [facility] EMERGENCY DEPARTMENT REPORTo n 10-09-2019 EMERGENCY [place]PART[place] [address] HEALTH INFORMATION MANAGEMENT EMERGENCY DEPARTMENT REPORT Patient: LORI ALTAMIRANO RUDY BERNABE M.D. [id number] [age] F Status: ADM Suri 2SWEST 2930-B Date of Service: 10/09/19 PHYSICIAN: Leandro Hayes M.D. CHIEF COMPLAINT: Cough, body aches, headache, shortness of breath. HISTORY OF PRESENT ILLNESS: A 68-year-old female who presents with the following symptoms. She is a normally healthy 68 -year-old female, who was at [place], [place] last week . She got sick out there with generalized body aches, rhinorrhea, cough, fever, chills, and went to an urgent care center where she was diagnosed with influenza based on a swab. She was started on Tamiflu and took 9 of the 10 pills. She returned to [place]. She is still not breathing well, still coughing a lot, feeling more short of breath. The patient saw her primary care physician yesterday, who started her on albuterol nebulizer treatments at home and a Z-Daniel. She comes in today and states she still is feeling worse. No history of COPD, asthma, congestive heart failure , or lung disease. The cough is nonproductive. She reports she has continued to feel fever and chill sensation. She has been tired. Everything is exacerbated by exertion. The patient has no heaviness in her chest. No leg swelling. No abdominal pain, nausea, vomiting. She is very fatigued. She has had minimal sore throat and rhinorrhea. REVIEW OF SYSTEMS: The patient has had no vomiting, diarrhea, urinary symptoms, or rash. Further review of systems are negative. PAST MEDICAL HISTORY: History of hysterectomy, cholecystectomy, hypertension. MEDICATIONS: She is on pravastatin and losartan at home. SOCIAL HISTORY: . No alcohol or tobacco use. Retired [employer]. PHYSICAL EXAMINATION: VITAL SIGNS: Finds a 68-year-old female, who most of the time here her saturations were 88% and 91% on room air, T-max is 99.4. She is normotensive. HEENT: She has a frequent dry cough. No sinus tenderness to percussion. No rhinorrhea. The patient has mild pharyngeal erythema. No exudate was seen. NECK: No JVD in the neck. Some cervical lymphadenopathy in neck. RESPIRATORY: Lung flynn bilateral, mild wheezing and diminished breath sounds. CARDIAC: Sounds rapid and regular. ABDOMEN: Soft. No tenderness. No distention. PERIPHERAL: She is A and O x3. No sensory or motor deficits. EMERGENCY DEPARTMENT COURSE: Workup here. The patient had a white count of 11,000. Chest x-ray in my opinion is bilateral infiltrates. Radiologist read as pulmonary edema, but I dispute that because the patient's B-peptide is normal and her exam is not compatible with pulmonary edema. The patient has had a breathing treatment here. She remains hypoxic. I am concerned about that , I am concerned about the post influenza pneumonia. The patient will be admitted. IMPRESSION: Bilateral pneumonia with hypoxia. Report#: Dict ID [id number] / Int ID [id number] cc: Leandro Hayes MD 10/09/19 2244 RUDY BERNABE M.D. cc: RUDY BERNABE M.D.; LEANDRO HAYES M.D. << Signature on File>> Reported By: RUDY BERNABE M.D. Signed By: RUDY BERNABE M.D. Tests performed at: [address] [address] Normal [facility] HISTORY PHYSICALon 0 HISTORY PHYSICAL HNO ID: [id number] Author: Provider [facility] Service: ? Author Type: Physician Type: HANDP Filed: 10/09/2019 5:14 PM Note Text: [place] [address] HISTORY AND PHYSICAL Patient: LORI ALTAMIRANO Attending: MALKA CHARLES M.D. PCP: [id number] F Status: ADM Suri EDADMIT EDADMIT-01 Report Date AND Time: 10/09/19 1708 HPI Chief Complaint Cough. History Of Present Illness This is a 68-year-old female with HTN who presents with worsening cough for the past week. She was in [place] visiting [facility] for [place] when symptoms started and she was diagnosed with influenza at an Urgent Care. She completed a course of Tamiflu. Saw her PCP yesterday due to continued symptoms and was started on a Z-pack and given albuterol. Cough continued to worsen so she presented to the ER today as instructed. Was mildly hypoxic on room air 88- 91%. Currently on 2L nasal cannula saturating 97%. Patient also complains of headache and myalgias, anorexia, and SOB. No nausea/vomiting, has had one episode of scant diarrhea. PMH: RLS, HTN, HLD. PSxH: cholecystectomy, SHAE. SH: No tobacco or alcohol use. Lives with . FH: CHF, DM. Patient Health History Medical Problems CAP (community acquired pneumonia) HLD (hyperlipidemia) HTN (hypertension) RLS (restless legs syndrome) Allergies Coded Allergies: No Known Drug Allergies (10/09/19) Home Medications Reported Medications Ropinirole Hcl* (Requip*) 0.5 MG PO DAILY Ropinirole Hcl* (Requip*) 0.5 MG PO DAILY #180 Azithromycin* (Zithromax*) 250 MG PO QDAY Azithromycin* (Zithromax*) 250 MG PO QDAY #6 Albuterol* Sulfate 0.083% 2.5 mg/3ml (Proventil* 0.083% 2.5 mg/3ml) 2.5 MG IH Q6HPRN PRN SOB Albuterol* Sulfate 0.083% 2.5 mg/3ml (Proventil* 0.083% 2.5 mg/3ml) 2.5 MG IH Q6HPRN PRN SOB #75 Losartan* Potassium (Cozaar*) 50 MG PO QDAY Losartan* Potassium (Cozaar*) 50 MG PO QDAY #90 Pravastatin Sod* (Pravachol*) (Unknown Dose) Labs/Vitals/Meds Hematology Range/Units 10/09 1513 Hematology WBC 4.5 - 10.0 x10(3) 10.7 H RBC 3.30 - 5.00 x10(6) 4.42 Hgb 12.0 - 16.0 g/dL 13.2 Hct 36.0 - 48.0 % 38.9 MCV 80.0 - 99.0 fl 87.9 MCH 28.5 - 32.9 pg 29.8 MCHC 33.0 - 36.0 g/dL 33.9 RDW 12.5 - 15.7 % 12.9 Plt Count 150 - 450 X10(3) 452 H MPV 7.5 - 9.5 fl 6.7 L Neut % (Auto) 45.0 - 73.0 % 80.1 H Lymph % (Auto) 16.0 - 48.0 % 9.7 L [place] % (Auto) 4.3 - 11.2 % 7.2 Eos % (Auto) 0.5 - 4.9 % 2.5 Baso % (Auto) 0.0 - 1.0 % 0.5 Neut # (Auto) 1.40 - 6.50 x10(3) 8.60 H Lymph # (Auto) 1.00 - 3.50 x10(3) 1.00 [place] # (Auto) 0.30 - 0.80 x10(3) 0.80 Eos # (Auto) 0.00 - 0.54 x10(3) 0.30 Baso # (Auto) 0.00 - 0.10 x10(3) 0.00 Chemistry Range/Units 10/09 10/09 1513 1513 Chemistry Sodium 135 - 145 mmol/L 137 Potassium 3.5 - 5.0 mmol/L 4.1 Chloride 98 - 107 mmol/L 96 L Carbon Dioxide 22 - 29 mmol/L 27 Anion Gap 15 - 22 mmol/L 18.1 BUN 8 - 23 mg/dL 12 Creatinine 0.50 - 0.90 mg/dL 0.72 Est GFR ( Amer) > 60 ml/min/1.73m2 Est GFR (Non-Af Amer) > 60 ml/Min/1.73m2 Glucose 82 - 115 mg/dL 106 Calcium 8.8 - 10.2 mg/dL 9.3 Troponin T 0 - 0.010 ng/mL <0.010 NT-Pro-B Natriuret Pep pg/mL 158 Vital Signs Date Time Temp Pulse Resp B/P B/P Pulse O2 O2 Flow FiO2 Mean Ox Delivery Rate 10/09 1637 99.4 90 10/09 1524 RA 10/09 1440 97.7 94 16 177/89 94 10/09 1426 97.7 94 16 177/89 94 Imaging: CXR: I have personally reviewed the CXR and per my interpretation it shows bilateral atypical appearing PNA. Review of Systems All Other Systems Other systems reviewed and are negative. Objective Focused Exam Performed General Appearance Alert, Oriented X3, Cooperative, Appears Stated Age, No Acute Distress HEENT Atraumatic, Mucous Membr. moist/pink, WNL Lungs Normal Air Movement, Rhonchi, Crackles Neck Supple, No JVD Cardiovascular NSR, Normal S1, S2 Abdomen Normal Bowel Sounds, Soft, No Tenderness Extremities No Cyanosis, No Edema Skin No Rashes, No Breakdown, No Significant Lesion Neurological Normal Speech, Normal Tone, Intact/non-focal, Age Appropriate Psych/Mental Status Normal Affect, Normal Mood, Pleasant Problems Prob/AP Current Problems 1. CAP (community acquired pneumonia) Assessment/Plan continue Levaquin antitussives PRN sputum culture O2 protocol nebs 2. HTN (hypertension) Assessment/Plan continue losartan 3. HLD (hyperlipidemia) Assessment/Plan continue pravastatin 4. RLS (restless legs syndrome) Assessment/Plan continue Requip HS Recent Orders My Orders (without Meds) Procedure Date/time Status REGULAR DIET 10/10 B Active COMPLETE BLOOD COUNT 10/10 0400 Active BASIC METABOLIC PANEL 10/10 0400 Active RT COMMUNICATION 10/09 170 Active RT TREATMENT ORDER 10/09 170 Active OXYGEN PROTOCOL 10/09 1708 Active VS-Vitals per nursing protocol 10/09 170 Active Activity-Up as Tolerated 10/09 1707 Active Apply IPC/SCD/Venodynes/VTE 10/09 1707 Active Notify/Chart - Atraumatic Fall 10/09 1707 Active zVTE Prophylaxis Education 10/09 170 Active zPT DIAGNOSIS 10/09 170 Active Code Status 10/09 1708 Active Adult Emergency [id number] 10/09 170 Active Admit/Assign to.... 10/09 1707 Active RESPIRATORY CULTURE/GRAM STAIN 10/09 1707 Active Plan Plans Time Spent 40 min Additional Comments FULL CODE SCDs Obs 10/09/19 1714 MALKA CHARLES M.D. cc: << Signature on File>> Reported By: MALKA CHARLES M.D. Signed By: MALKA CHARLES M.D. Tests performed at: [address] [address] Normal [facility] PRO-BNPon 10-09-2019 Natriuretic peptide B (Bld) [Mass/Vol] 158 pg/mL Normal [facility] Comment on above: Result Comment: HF U NLIKELY: NT-PRO BNP <300 pg/mL HF LIKELY: NT-PRO BNP >450 pg/mL (AGE <50) NT-PRO BNP >900 pg/mL (AGE 50-75) NT-PRO BNP >1800 pg/mL (AGE >75) HF VERY LIKELY: NT-PRO BNP >10,000 pg/mL SOURCE: [employer]IDE ALGORITHM FOR PRO-BNP; CRITICAL PATHWAYS IN CARDIOLOGY VOLUME 3, NUMBER 4; SEPTEMBER 2004 Performed By: #### L 301.0120, L301.0460 #### [facility] - LABORATORY [address] [place] [id number] TROPONIN Ton 10-09-2019 Troponin T.cardiac [Mass/Vol] ug/L Normal 0-0.010 [facility] Comment on above: Performed By: #### L 301.0120, L301.0460 #### [facility] [address] [place] [id number] Laboratory - Chemistry and C hemistry - challengeon 07-06-2019 Albumin [Mass/Vol] 4.2 g/dL Normal 3.6 - 5.1 g/dL [facility] Albumin/Globulin [Mass ratio] 1.6 {ratio} Normal 1.0 - 2.5 [facility]. ALP [Catalytic activity/Vol] 76 U/L Normal 33 - 130 U/L [facility].; [facility], [facility]. ALT [Catalytic activity/Vol] 16 U/L Normal 6 - 29 U/L [facility].; [facility], [facility]. AST [Catalytic activity/Vol] 16 U/L Normal 10 - 35 U/L [facility].; [facility]. Bilirubin [Mass/Vol] 0.4 mg/dL Normal 0.2 - 1.2 mg/dL [facility].; [facility], [facility]. Calcium [Mass/Vol] 9.6 mg/dL Normal 8.6 - 10. 4 mg/dL [facility].; [facility], [facility]. Chloride [Moles/Vol] 105 mmol/L Normal 98 - 110 mmol/L [facility].; [facility], [facility]. Cholesterol [Mass/Vol] 220 mg/dL Abnormal [facility].; [facility], [facility]. Cholesterol in HDL [Mass/Vol] 71 mg/dL Normal [facility].; [facility], [facility]. Cholesterol in LDL [Mass/Vol] 119 mg/dL Abnormal 0 - 100 mg/dL [facility].; [place] [facility], [facility]. Cholesterol non HDL [Mass/Vol] 149 mg/dL Abnormal [facility].; [place] [facility]. Cholesterol.total/C holesterol in HDL [Mass ratio] 3.1 {ratio} Normal [facility].; [place] [facility]. CO2 [Moles/Vol] 29 mmol/L Normal 20 - 32 mmol/L [facility].; [place] [facility], [facility]. Creatinine [Mass/Vol] 0.76 mg/dL Normal 0.50 - 0.99 mg/dL [facility].; [place] [facility], [facility]. GFR/1.73 sq M.predicted among blacks MDRD (S/P/Bld) [Vol rate/Area] 93 {ML/MIN/1.73M2} Normal [facility].; [facility], [facility]. GFR/1.73 sq M.predicted MDRD (S/P/Bld) [Vol rate/Area] 80 {ML/MIN/1.73M2} Normal [facility]; [facility], [facility] Globulin (S) [Mass/Vol] 2.6 g/dL Normal 1.9 - 3.7 g/dL [facility].; [facility], [facility] Glucose [Mass/Vol] 92 mg/dL Normal 65 - 99 mg/dL [facility], [facility] Potassium [Moles/Vol] 4.2 mmol/L Normal 3.5 - 5.3 mmol/L [facility]; [facility], [facility] Protein [Mass/Vol] 6.8 g/dL Normal 6.1 - 8.1 g/dL [facility]; [facility], [facility] Sodium [Moles/Vol] 143 mmol/L Normal 135 - 146 mmol/L [facility]; [facility], [facility]. Triglyceride [Mass/Vol] 179 mg/dL Abnormal [facility]; [facility], [facility] TSH Qn 3.40 m[IU]/L Normal 0.40 - 4.50 {mIU/L} [facility]; [facility], [facility]. Urea nitrogen [Mass/Vol] 15 mg/dL Normal 7 - 25 mg/dL [facility]; [facility], [facility] Urea nitrogen/Creatinine [Mass ratio] 19.3 mg/mg Normal 6 - 22 [facility]; [facility] Laboratory - Hematology and Cell countson 07-06-2019 Basophils (Bld) [#/Vol] 30 {Cells}/uL Normal 0 - 200 {Cells}/uL [facility].; [facility], [facility]. Basophils/100 WBC (Bld) 0.5 % Normal 0 - 1 % [facility].; [facility], [facility]. Eosinophils (Bld) [#/Vol] 250 {Cells}/uL Normal 15 - 500 {Cells}/uL [facility].; [facility], [facility]. Eosinophils/100 WBC (Bld) 4.0 % Normal 0 - 4 % [facility].; [facility], [facility] Erythrocyte distribution width (RBC) [Ratio] 12.6 % Normal 11.0 - 15.0 % [facility].; [facility], [facility] Hematocrit (Bld) [Volume fraction] 39.1 % Normal 35.0 - 45.0 % [facility], [facility].; [facility], [facility] Hemoglobin (Bld) [Mass/Vol] 13.3 g/dL Normal 11.7 - 15.5 g/dL [facility].; [facility], [facility] Lymphocytes (Bld) [#/Vol] 1230 {Cells}/uL Normal 850 - 3900 {Cells}/uL [facility].; [facility], [facility] Lymphocytes/100 WBC (Bld) 19.6 % Normal 12 - 47 % [facility], [facility].; [facility], [facility] MCH (RBC) [Entitic mass] 29.5 pg Normal 27.0 - 33.0 PG [facility].; [facility], [facility]. MCHC (RBC) [Mass/Vol] 34.0 g/dL Normal 32.0 - 36.0 g/dL [facility], [facility].; [facility], [facility]. MCV (RBC) [Entitic vol] 86.7 fL Normal 80.0 - 100.0 fL [facility].; [facility], [facility]. Monocytes (Bld) [#/Vol] 380 {Cells}/uL Normal 200 - 950 {Cells}/uL [facility].; [facility], [facility]. Monocytes/100 WBC (Bld) 6.1 % Normal 4 - 12 % [facility].; [facility], [facility]. Neutrophils (Bld) [#/Vol] 4350 {Cells}/uL Normal 1500 - 7800 {Cells}/uL [facility], [facility].; [facility], [facility]. Neutrophils/100 WBC (Bld) 69.8 % Normal 40 - 75 % [facility], [facility].; [facility], [facility]. Platelet mean volume (Bld) [Entitic vol] 10.2 fL Normal 7.5 - 12.[address] [facility], [employer] [facility] Platelets (Bld) [#/Vol] 342 10*3/uL Normal 140 - 400 10*3/uL [facility] [facility] [employer] [facility] RBC (Bld) [#/Vol] 4.51 10*6/uL Normal 3.80 - 5.1 0 10*6/uL [facility] [employer] WBC (Bld) [#/Vol] 6.3 10*3/uL Normal 3.8 - 10.8 10*3/uL [employer] [employer], [employer]. Vital Signs Date Time Vital Sign Value Performing Clinician Facility 06-15-2025 11:19-0400 Diastolic blood pressure 85 mm[Hg] [address] 06-15-2025 11:19-0400 Heart rate 74 /min [address] 06-15-2025 11:19-0400 Respiratory rate 16 /min [address] 06-15-2025 11:19-0400 SaO2% (BldA) [Mass fraction] 96 % [address] 06-15-2025 11:19-0400 Systolic blood pressure 153 mm[Hg] [address] 06-15-2025 11:04-0400 Body temperature 98.1 [degF] [address] 06-15-2025 10:18-0400 Body height 161.[address] 06-15-2025 10:18-0400 Body mass index (BMI) [Ratio] 41.32 kg/m2 [address] 06-15-2025 10:18-0400 Body weight 107.[address] 05-13-2025 10:58-0400 Diastolic blood pressure 95 mm[Hg] [address] 05-13-2025 10:58-0400 Heart rate 71 /min [address] 05-13-2025 10:58-0400 Respiratory rate 16 /min [address] 05-13-2025 10:58-0400 SaO2% (BldA) [Mass fraction] 98 % [address] 05-13-2025 10:58-0400 Systolic blood pressure 167 mm[Hg] [address] 05-13-2025 10:43-0400 Body temperature 97 [degF] [address] 03-02-2025 10:08-0400 Diastolic blood pressure 71 mm[Hg] [address] 03-02-2025 10:08-0400 Heart rate 71 /min [address] 03-02-2025 10:08-0400 Respiratory rate 16 /min [address] 03-02-2025 10:08-0400 SaO2% (BldA) [Mass fraction] 95 % [address] 03-02-2025 10:08-0400 Systolic blood pressure 164 mm[Hg] [address] 03-02-2025 09:53-0400 Body temperature 99 [degF] [address] 03-02-2025 09:12-0400 Body height 165.[address] 03-02-2025 09:12-0400 Body mass index (BMI) [Ratio] 39.94 kg/m2 [address] 03-02-2025 09:12-0400 Body weight 108.[address] 10-19-2019 10:27-0500 Body height 160.02 cm Krystyna Shay PA-C Work Phone: [employer] [facility] [employer] [facility]. 10-19-2019 10:27-0500 Body mass index (BMI) [Ratio] 41.1 kg/m2 Krystyna Shay PA-C Work Phone: [employer] [facility].; [facility], [facility]. 10-19-2019 10:27-0500 Body surface area Derived from formula 2.06 m2 Krystyna Shay PA-C Work Phone: [employer]; [employer]. 10-19-2019 10:27-0500 Body temperature 97.8 [degF] Krystyna Bermudezer PA-C Work Phone: [employer]; [employer]. Comment on above: Method: Tympanic 10-19-2019 10:27-0500 Body weight 105.24 kg Krystyna Bermudezer PA-C Work Phone: [employer]; [employer]. 10-19-2019 10:27-0500 Diastolic blood pressure 71 mm[Hg] Krystyna Genao Shay PA-C Work Phone: [employer]; [employer]. Comment on above: Patient Position: Sitting; Cuff Location : Left Arm; Cuff Size: Standard 10-19-2019 10:27-0500 Heart rate 87 /min Krystyna Bermudezer PA-C Work Phone: [employer]; [employer]. Comment on above: Pattern: Regular 10-19-2019 10:27-0500 Inhaled oxygen concentration 21 % Krystyna Genao Shay PA-C Work Phone: [employer]; [employer]. Comment on above: Room air 10-19-2019 10:27-0500 SaO2% (BldA) [Mass fraction] 97 % Krystyna Genao Shay PA-C Work Phone: [employer]; [employer]. 10-19-2019 10:27-0500 Systolic blood pressure 102 mm[Hg] Krystyna Genao Shay PA-C Work Phone: [employer]; [employer]. Comment on above: Patient Position: Sitting; Cuff Location : Left Arm; Cuff Size: Standard 10-08-2019 14:02-0500 Body height 160.02 cm Amna Fisher LPN [facility].; [employer]. 10-08-2019 14:02-0500 Body mass index (BMI) [Ratio] 41.1 kg/m2 Amna Wemary BLACK [facility], [facility].; [employer], [employer]. 10-08-2019 14:02-0500 Body surface area Derived from formula 2.06 m[address] BLACK [facility], [facility].; [employer] 10-08-2019 14:02-0500 Body temperature 98.2 [degF] [facility].; [employer]. Comment on above: Method: Tympanic 10-08-2019 14:02-0500 Body weight 105.24 kg Amna Wemary BLACK [facility], [facility].; [employer]. 10-08-2019 14:02-0500 Diastolic blood pressure 85 mm[Hg] Amna Wemary BLACK [facility], [facility].; [employer], [employer]. Comment on above: Patient Position: Sitting; Cuff Location : Left Arm; Cuff Size: Standard 10-08-2019 14:02-0500 Heart rate 88 /min Amna Nicmary BLACK [facility], [facility].; [employer]. Comment on above: Pattern: Regular 10-08-2019 14:02-0500 Inhaled oxygen concentration 21 % Amna Nicmary MANAGER WOUND [facility], [facility].; [employer]. Comment on above: Room air 10-08-2019 14:02-0500 SaO2% (BldA) [Mass fraction] 92 % Amna Nicmary MANAGER WOUND [facility].; [employer]. 10-08-2019 14:02-0500 Systolic blood pressure 152 mm[Hg] Amna Wemary [facility].; [employer]. Comment on above: Patient Position: Sitting; Cuff Location : Left Arm; Cuff Size: Standard 07-13-2019 09:51-0400 Body height 160.02 cm Yara Ariane BLACK Work Phone: [place] [facility].; [employer] 07-13-2019 09:51-0400 Body mass index (BMI) [Ratio] 40.92 kg/m2 Yara Ariane MANAGER WOUND Work Phone: [employer].; [employer]. 07-13-2019 09:51-0400 Body surface area Derived from formula 2.06 m2 Yara Ariane MANAGER WOUND Work Phone: [employer].; [employer]. 07-13-2019 09:51-0400 Body weight 104.78 kg Yara Thakkar LPN Work Phone: [employer].; [employer]. 07-13-2019 09:51-0400 Diastolic blood pressure 85 mm[Hg] Yara Thakkar MANAGER WOUND Work Phone: [employer].; [employer]. Comment on above: Patient Position: Sitting; Cuff Location : Left Arm; Cuff Size: Large 07-13-2019 09:51-0400 Heart rate 85 /min Yara Thakkar LPN Work Phone: [email or web address]; [employer]. Comment on above: Pattern: Regular 07-13-2019 09:51-0400 Systolic blood pressure 150 mm[Hg] Yara Thakkar LPN Work Phone: [employer].; [employer]. Comment on above: Patient Position: Sitting; Cuff Location : Left Arm; Cuff Size: Large 06-04-2019 15:13-0400 Body height 160.02 cm Leandro Hayes MD Work Phone: [employer].; [employer]. 06-04-2019 15:13-0400 Body mass index (BMI) [Ratio] 39.68 kg/m2 Leandro Hayes MD Work Phone: [employer].; [employer]. 06-04-2019 15:13-0400 Body surface area Derived from formula 2.03 m2 Leandro Hayes MD Work Phone: [employer].; [email or web address] 06-04-2019 15:130400 Body temperature 97.7 [degF] Leandro Hayes MD Work Phone: [employer].; [employer]. Comment on above: Method: Tympanic 06-04-2019 15:130400 Body weight 101.61 kg Leandro Hayes MD Work Phone: [employer].; [employer]. 06-04-2019 15:13-0400 Diastolic blood pressure 78 mm[Hg] Leandro Hayes MD Work Phone: [employer]. Comment on above: Patient Position: Sitting; Cuff Location : Left Arm; Cuff Size: Large 06-04-2019 15:130400 Heart rate 82 /min Leandro Hayes MD Work Phone: [employer]. Comment on above: Pattern: Regular 06-04-2019 15:130400 Systolic blood pressure 127 mm[Hg] Leandro Hayes MD Work Phone: [employer]. Comment on above: Patient Position: Sitting; Cuff Location : Left Arm; Cuff Size: Large 11-13-2018 10:38-0500 Body height 160.02 cm [facility] Work Phone: [employer]. 11-13-2018 10:38-0500 Body mass index (BMI) [Ratio] 39.68 kg/m2 [facility] Work Phone: [employer]. 11-13-2018 10:38-0500 Body surface area Derived from formula 2.03 m2 Yara [employer] [facility] Work Phone: [employer]. 11-13-2018 10:38-0500 Body weight 101.61 kg [facility] Work Phone: [employer]. 11-13-2018 10:38-0500 Diastolic blood pressure 86 mm[Hg] Yara Thakkar MANAGER WOUND Work Phone: [employer]. Comment on above: Patient Position: Sitting; Cuff Location : Left Arm; Cuff Size: Large 11-13-2018 10:38-0500 Heart rate 78 /min Yara Thakkar LPN Work Phone: [employer]. Comment on above: Pattern: Regular 11-13-2018 10:38-0500 Systolic blood pressure 150 mm[Hg] Yara Thakkar MANAGER WOUND Work Phone: [employer]. Comment on above: Patient Position: Sitting; Cuff Location : Left Arm; Cuff Size: Large Encounters Encounter Date Encounter Type Care Provider Facility Start: [facility] Start: 08-05-2025 ambulatory BERNICE TRACEY [facility] Start: 07-29-2025 End: 07-29-2025 ambulatory PANKAJ THURSTON [facility] Start: 07-22-2025 ambulatory JASIEL CALIX [facility] Start: 06-29-2025 End: 06-29-2025 ambulatory EDDY ZIMMERMAN [facility] Start: 06-29-2025 ambulatory EDDY ZIMMERMAN [facility] Start: 06-15-2025 End: 06-15-2025 Subsequent hospital visit by physician Germania Landry MD PhD Work Phone: [facility] Comment on above: Cervical spondylosis without myelopathy Start: 06-15-2025 End: 06-15-2025 ambulatory GERMANIA LANDRY [facility] Start: 05-13-2025 End: 05-13-2025 Subsequent hospital visit by physician Germania Landry MD PhD Work Phone: [facility] Comment on above: Cervical spondylosis without myelopathy; Radiculopathy of bgzfaoct-edtikly-gikgw region Start: 05-13-2025 End: 05-13-2025 ambulatory GERMANIA Ames [facility] Start: 04-28-2025 End: 04-28-2025 Subsequent hospital visit by physician Racheal X-Ray 2 [facility] Comment on above: Cervical spondylosis without myelopathy; Radiculopathy of aictcait-ztpmulq-wkmqd region Start: 04-28-2025 End: 04-28-2025 Office outpatient visit 15 minutes Germania Landry MD PhD Work Phone: [facility] Comment on above: Cervical spondylosis without myelopathy (Primary Dx); Radiculopathy of fowtapbw-kaxyteh-axfir region Start: 04-28-2025 End: 04-28-2025 [facility] Start: 03-02-2025 End: 03-02-2025 Subsequent hospital visit by physician Germania Landry MD PhD Work Phone: [facility] Comment on above: Cervical spondylosis without myelopathy; Radiculopathy of bxesqhxz-rhayhgq-ibrvz region Start: 03-02-2025 End: 03-02-2025 ambulatory GERMANIA HOFFMANNMARLENI [facility] Start: 02-15-2025 End: 02-15-2025 Office outpatient new 45 minutes Germania Landry MD PhD Work Phone: [facility] Comment on above: Cervical spondylosis without myelopathy (Primary Dx); Radiculopathy of ydugqnqz-acxbhzn-joaqr region Start: 02-15-2025 End: 02-15-2025 ambulatory GERMANIA LANDRY [facility] Start: 02-09-2025 End: 02-09-2025 ambulatory Leandro Hayes Facility:[facility] Start: 02-04-2025 End: 02-04-2025 ambulatory [facility] Start: 01-29-2025 End: 01-29-2025 ambulatory [facility] Start: 01-29-2025 End: 01-29-2025 Encounter for general adult medical examination without abnormal findings ТАТЬЯНА A LELAND [facility] Start: 01-28-2025 End: 01-28-2025 ambulatory EDDY ZIMMERMAN [facility] Start: 01-28-2025 End: 01-28-2025 ambulatory EDDY ZIMMERMAN [facility] Start: 01-15-2025 End: 01-15-2025 ambulatory Leandro Hayes Facility:[facility] Start: 09-15-2024 End: 09-15-2024 ambulatory ANDREA AGRICULTURAL RESEARCH ENGINEER [facility] Start: 09-11-2024 End: 09-11-2024 ambulatory ANDREA AGRICULTURAL RESEARCH ENGINEER [facility] Start: 12-25-2019 End: 12-25-2019 Orders Leandro Hayes MD Work Phone: [email or web address] Start: 10-19-2019 End: 10-19-2019 Office outpatient visit 15 minutes Leandro Hayes MD Work Phone: [email or web address] Start: 10-13-2019 End: 10-13-2019 Telephone follow-up Leandro Hayes MD Work Phone: [email or web address] Start: 10-08-2019 End: 10-08-2019 Office outpatient visit 15 minutes Leandro Hayes MD Work Phone: [email or web address] Start: 07-13-2019 End: 07-13-2019 Patient encounter procedure Leandro Hayes MD Work Phone: [email or web address] Start: 07-08-2019 End: 07-08-2019 Historical Summary Leandro Hayes MD Work Phone: [email or web address] Start: 06-05-2019 End: 06-05-2019 Orders Leandro Hayes MD Work Phone: [email or web address] Start: 06-04-2019 End: 06-04-2019 Office outpatient visit 15 minutes Leandro Hayes MD Work Phone: [email or web address] Start: 11-13-2018 End: 11-08-2018 Historical Summary Leandro Hayes MD [facility] Start: 11-13-2018 End: 11-13-2018 Patient encounter procedure Leandro Hayes MD Work Phone: [facility] [facility] Patient encounter procedure Yarakael Chaseran BLACK [facility] Procedures Date Procedure Procedure Detail Performing Clinician Start: 06-15-2025 FL PAIN MANAGEMENT Bhupinder Landry MD PhD Work Phone: Start: 06-15-2025 RADIOFREQUENCY ABLATION Germania Landry MD PhD Work Phone: Start: 05-13-2025 FL PAIN MANAGEMENT Bhupinder Landry MD PhD Work Phone: Start: 05-13-2025 MEDIAL NERVE BRANCH BLOCK Germania Landry MD PhD Work Phone: Start: 03-02-2025 FL PAIN MANAGEMENT Bhupinder Landry MD PhD Work Phone: Start: 03-02-2025 MEDIAL NERVE BRANCH BLOCK Germania Landry MD PhD Work Phone: Start: 12-25-2019 End: 12-25-2019 Radiologic exam chest 2 views Charlene Wilburn PA-C Work Phone: Start: 10-19-2019 End: 10-19-2019 Radiologic exam chest 2 views Krystyna Shay PA-C Work Phone: Start: 10-08-2019 End: 10-08-2019 Pressurized/nonpressurized inhalation treatment Krystyna Shay PA-C Work Phone: Start: 07-13-2019 End: 07-13-2019 All Questionnaires Negative Amna mcdaniels LPN Start: 07-13-2019 End: 07-13-2019 Body mass index documented Leandro siddiqi MD Work Phone: Start: 07-13-2019 End: 07-13-2019 Depression screening Leandro Hayes MD Work Phone: Start: 07-13-2019 End: 07-13-2019 Docrev cur meds by phong Hayes MD Work Phone: Start: 07-13-2019 End: 07-13-2019 Falls risk assessment documented Leandro Hayes MD Work Phone: Start: 07-13-2019 End: 07-13-2019 Flu imm no admin doc matt Leandro calvillo MD Work Phone: Start: 07-13-2019 End: 07-13-2019 Most recent diastolic blood pressure 80-89 mm hg Leandro Hayes MD Work Phone: Start: 07-13-2019 End: 07-13-2019 Most recent systolic blood pres>/equal 140 mm hg Leandro Hayes MD Work Phone: Start: 07-13-2019 End: 07-13-2019 PPPS, initial visit Leandro Rosenbaum Work Phone: Start: 07-13-2019 End: 07-13-2019 Pt falls assess docd w/o fall/injury past year Leandro Hayes MD Work Phone: Start: 07-13-2019 End: 07-13-2019 Scr dep neg, no plan reqd Leandro woodruff MD Work Phone: Start: 07-06-2019 End: 07-06-2019 Lab findings surveillance Amna Mcbride rd, LPN Comment on above: Normal. 92 Start: 07-06-2019 End: 07-06-2019 Lipid panel Amna Fisher LPN Comment on above: Abnormal. tc 220 hdl 71 ldl 119 trig 179 Start: 06-26-2019 End: 06-26-2019 Screening mammography Amna JERONIMO Comment on above: Within Normal Limits . Start: 06-05-2019 End: 07-08-2019 Screening mammography bi 2-view breast inc cad Yara Thakkar LPN Work Phone: Start: 11-13-2018 End: 11-13-2018 Body mass index documented Leandro siddiqi MD Work Phone: Start: 11-13-2018 End: 11-13-2018 Current tobacco non-user cad cap copd pv dm Leandro Hayes MD Work Phone: Start: 11-13-2018 End: 11-13-2018 Docrev cur meds by phong Hayes MD Work Phone: Start: 11-13-2018 End: 11-13-2018 Flu imm no admin doc matt Leandro calvillo MD Work Phone: Start: 11-13-2018 End: 11-13-2018 Most recent diastolic blood pressure 80-89 mm hg Leandro Hayes MD Work Phone: Start: 11-13-2018 End: 11-13-2018 Most recent systolic blood pres>/equal 140 mm hg Leandro Hayes MD Work Phone: Start: 04-29-2018 End: 04-29-2018 Screening colonoscopy Amna Pringle PN Comment on above: out of town doc, isabel yp sent, no path available, suggested surveilance in 1 yr Start: 04-29-2018 Colonoscopy Samer Paola murray MD PhD Work Phone: Start: 10-07-2005 End: 10-07-2005 Cholecystectomy Amna Fisher MANAGER WOUND Start: 10-07-1999 End: 10-07-1999 Total hysterectomy Amna Fisher LPN H/O: hysterectomy H/O: hysterectomy Radha Fisher LPN Plan of Treatment Date Care Activity Detail Author Start: 04-29-2028 Screening for malign ant neoplasm of colon [facility] Start: 06-07-2025 COVID-19 Vaccine ( season) COVID-19 Vaccine ( season) [facility] Start: 06-07-2025 Influenza vaccination [facility] Start: 05-13-2025 End: 05-13-2025 Patient encounter procedure 05/13/2025 10:30 AM EDT Appointment [facility] [address] [place] [address] Germania Landry MD PhD [address] [place] [address] [facility] Start: 04-28-2025 End: 04-28-2026 FL pain management FL pain management Imaging Routine Cervical spondylosis without myelopathy Radiculopathy of pkqqqzhu-pxvehte-dwgye region Expected: 04/28/2025, Expires: 04/28/2026 [facility] Service Area Work Phone: Comment on above: Expected: 04/28/2025 , Expires: 04/28/2026 Start: 04-28-2025 End: 04-28-2026 Medial Nerve Branch Block Medial Nerve Branch Block Pain Management Routine Cervical spondylosis without myelopathy Radiculopathy of rrtpgjms-nsnmhjv-atmwx region Expected: 04/28/2025, Expires: 04/28/2026 [facility] Work Phone: Comment on above: Expected: 04/28/2025 , Expires: 04/28/2026 Start: 04-28-2025 End: 04-28-2026 XR Cervical spine 4 or 5 Views [facility] Service Area Work Phone: Comment on above: Once for 1 Occurrenc es starting 04/28/2025 until 04/28/2025 Expected: 04/28/2025 , Expires: 04/28/2026 Start: 03-02-2025 End: 03-02-2025 Patient encounter procedure 03/02/2025 9:45 AM EDT Appointment [facility] [address] [place] [address] Germania Landry [place] PhD [address] [place] [address] [facility] Start: 02-15-2025 End: 02-15-2026 FL pain management FL pain management Imaging Routine Cervical spondylosis without myelopathy Radiculopathy of pcjtrplj-qfsqqje-pqsma region Expected: 02/15/2025, Expires: 02/15/2026 [facility] Service Area Work Phone: Comment on above: Expected: 02/15/2025 , Expires: 02/15/2026 Start: 02-15-2025 End: 02-15-2026 Medial Nerve Branch Block Medial Nerve Branch Block Pain Management Routine Cervical spondylosis without myelopathy Radiculopathy of svfuxtbb-tnqfxwi-uovfp region Expected: 02/15/2025, Expires: 02/15/2026 [facility] Work Phone: Comment on above: Expected: 02/15/2025 , Expires: 02/15/2026 Start: 2024 RSV High Risk: (Elde rly (60+) or Population) (1 - 1-dose 75+ series) RSV High Risk: (Elderly (60+) or Population) (1 - 1-dose 75+ series) [facility] Start: 06-07-2024 COVID-19 Vaccine ( season) COVID-19 Vaccine ( season) [facility] Start: 07-14-2020 Medicare Annual Wellness Visit Medicare Annual Wellness Visit (AWV) [facility] Start: 11-13-2018 End: 11-13-2018 Cv strs tst xers&/or rx cont ecg trcg only Treadmill stress test, Felipe Protocol, non-nuclear [id number] Date: 13-Nov-2018 [facility] Start: 2014 Screening for osteoporosis Bone Density Scan [facility] Start: 1999 Zoster Vaccines (1 o f 2) Zoster Vaccines (1 of 2) [facility] Start: 1971 DTaP/Tdap/Td Vaccine s (1 - Tdap) DTaP/Tdap/Td Vaccines (1 - Tdap) [facility] Start: 1967 Hepatitis C screening Hepatitis C Sc [facility] Start: 1950 MMR Vaccines (1 of 1 - Standard series) MMR Vaccines (1 of 1 - Standard series) [facility] Start: 1949 Lipid panel Lipid Panel [facility] Start: 1949 Screening for malign ant neoplasm of colon [facility] Start: 1949 Screening for osteoporosis Bone Density Scan [facility] Payers Date Payer Category Payer Medicare MEDICARE HMO Mem fan [id number] 2025 Self-pay 2024 Medicare (Managed Care) [facility] MEDICARE [id number] 2024 Medicare [id number] 1950 Unknown [id number] [id number]. 2.124 1949 Unknown [id number] 2.16840.1.207432.3.579. 2.1243 1949 Unknown [id number] 2.16840.1.354018.3.579. 2.124 1949 Unknown [id number] 2.16840.1.971312.3.579. 2.1243 1949 Unknown [id number] 2.16.840.1.107719.3.579. 2.1244 1949 Unknown [id number] 2.16.840.1.893034.3.579. 2.1244 1949 Unknown [id number] 2.16.840.1.868634.3.579. 2.651 1949 Unknown [id number] 2.16.840.1.926348.3.579. 2.651 1949 Unknown [id number] 2.16.840.1.665962.3.579. 2.651 1949 Unknown [id number] 2.16.840.1.003887.3.579. 2.651 1949 Unknown [id number] 2.16.840.1.801203.3.579. 2.651 1949 Unknown [id number] 2.16.840.1.226707.3.579. 2.651 1949 Unknown [id number] 2.16.840.1.507157.3.579. 2.651 1949 Unknown [id number] 2.16.840.1.844299.3.579. 2.651 1949 Unknown [id number] 2.16.840.1.134054.3.579. 2.651 1949 Unknown [id number] 2.16.840.1.234294.3.579. 2.651 Medicare [id number] Medicare [id number] Unknown [id number] 2.16.840.1.271893.3.579. 2.462 Unknown [id number] 2.16.840.1.942759.3.579. 2.462 Unknown [id number] 2.16.840.1.588901.3.579. 2.462 Unknown [id number] 2.16.840.1.566825.3.579. 2.462 Social History Date Type Detail Facility Marital status: Marital status: ; . [facility], [facility] Tobacco Use: Tobacco Use: ; F ormer smoker. [facility]. Female [facility] Work Phone: Start: 02-15-2025 Ex-smoker [facility]. Work Phone: History of tobacco use Current smoker [facility] Work Phone: History of tobacco use Cigarette Smoker [facility] Work Phone: Start: 02-15-2025 End: 05-13-2025 History of Social function [facility] Work Phone: Start: 02-15-2025 End: 05-13-2025 Tobacco use panel [facility] Work Phone: Start: 1950 Sex assigned at Not on file [facility] Work Phone: Start: 02-05-2025 End: 03-02-2025 Exposure to SARS-CoV-2 (event) Not sure [facility] Start: 03-02-2025 End: 05-13-2025 Alcoholic beverage intake Current drinker of alcohol (finding) [facility] Work Phone: Start: 03-02-2025 Alcohol Comment ocasionally [facility] Work Phone: Start: 09-01-2022 Sex Female [facility] Functional Status Date Assessment Result Facility 05-13-2025 [facility] - 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 - recent [C-SSRS] [facility] Work Phone: 03-02-2025 [facility] - 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 Bernice Tracey MD Status:PRE [facility] Location: [facility] History and Physical History and Physical Patient Name: Lori AltamiranoDOB: 1950 From: SAMIRA VALDEZ PA-C DATE OF PRE-OPERATIVE EXAM: 08/05/2025 DATE OF SURGERY: 08/09/2025 SCHEDULED PROCEDURE: Robotic assisted right total knee arthroplasty HISTORY OF PRESENT ILLNESS: Patient is a 74-year-old female presenting for preoperative visit. Patient states that she has had right knee pain since September 2024. Patient states that her pain is intermittent, aching, sharp. Patient states that stairs, driving, walking make her pain worse. Patient states that sitting, resting, elevating the leg helps alleviate her pain. Patient states that she is no longer able to dress herself without difficulty due to pain. Patient states that she has tried cortisone injection with no help. Patient states she has tried ice, elevation, oral medications with help. Patient states that she has not tried heat, compression, physical therapy, home exercises, chiropractor, gel injections. Patient states that she did lose 19 pounds last month but she gained it back due to pain. Patient states she has had 1 cortisone injection at [facility]. Patient denies any previous surgeries on the affected joint. REVIEW OF SYSTEMS: Review Of Systems: Constitutional: Denies change in appetite, fever and weight change. Cardiovasular: Denies chest pain, heart murmur and irregular heartbeat. Respiratory: Reports pneumonia, but denies cough, shortness of breath, tuberculosis and wheezing. Gastrointestinal: Denies constipation, diarrhea, heartburn, nausea, rectal itching, bloody stools and vomiting. Genitourinary: . (F Genital Sx) . (Urinary Sx) Musculoskeletal: Reports leg swelling and pain, but denies trouble walking and weakness. Skin: Denies Raynaud's, history of shingles and tattoo. Neurological: Reports dizziness but denies ambulatory dysfunction, numbness/tingling and tremor. Psychiatric: Reports insomnia, but denies anxiety and stress. Hematologic/Lymphatic: Denies anemia, bleeding/bruising tendency and past transfusion. Reviewed, no changes. PAST MEDICAL HISTORY: Advance Care Plan: No Advance Directives Effective Date: 01/18/2025 Past Medical History: Medical Problems: Arthritis, High Blood Pressure, Hypercholesterolemia, Sleep Apnea, Covid-19 Vaccine Accidents: None Surgical Hx: Appendectomy, Cataracts, Gallbladder, Hysterectomy, Tonsillectomy Anesthesia Complications: None Assistive Devices: Hearing Aid, Cpap Reviewed, no changes. SOCIAL HISTORY: Social History: Marital: .Occupation: Retired.Work Status: Retired.Hand Dominance: Left-handed. Personal Habits: Cigarette Use: Never Smoked Cigarettes.Smokeless Tobacco: Never Used Smokeless Tobacco.E-Cigarette Use: Never used.Alcohol: Occasionally.Drug Use: Denies Use.Enjoy Exercising: Daily. Reviewed, no changes. VITALS: Ht: 63" Wt: 245lb Wt k.132 BMI: 43.4 BP: 128/82 Pulse: 88 Resp: 17 T: 96.8 T: 36.0C Pain Level: 5/10 O2SatR: 96 ALLERGIES: No Known Drug Allergy MEDICATIONS: Meloxicam 15 mg 1 tablet by mouth every day, Ropinirole HCL ER 6 mg take one tablet by mouth nightly, Losartan Potassium 50 mg 1 by mouth every day, Pravastatin Sodium 40 mg 1po qday, Multi- Vitamin vit d, b12, iron, zinc, mag., Synthroid 25 mcg once daily, L-Thyroxine PRE-OP EXAM: General appearance:NORMAL Other: Eyes: Conjunctivae and lids: NORMAL Pupils: ERR Ears, Nose, Mouth, and Throat: NORMAL Other: Inspection of lips, teeth and gums: NORMAL Other: Neck: Examination of neck: no masses noted. Respiratory: Assessment of respiratory effort: NORMAL Other: Auscultation of lungs: clear to auscultation no wheezes, rhonchi or rales. Cardiovascular: Auscultation of heart: regular rate and rhythm, no murmurs, gallops or rubs. Exam of carotid arteries: NORMAL Other: Gastrointestinal: Exam of abdomen: soft, nontender, nondistended bowel sounds present. Lymphatic: Palpation of nodes in neck: NORMAL Other: Palpation of nodes in Axillae: NORMAL Other: Neurological: see below Psychiatric: Orientation to time, place and person: NORMAL Other: Mood and affect: NORMAL Other: PHYSICAL EXAMINATION: Physical exam: Alert and oriented ???3, no acute distress. Normal mood and affect. Antalgic gait. Right knee: Medial joint line tenderness left. Stable to varus valgus stressing. Sensation intact light touch throughout. Range of motion 5-135 left. Stable anterior posterior drawer. Medial joint line tenderness left. Trace effusion. No rashes or lesions. DF, PF, EHL 5/5. DP 2+ brisk capillary refill in (more content not included)... [facility] 06-15-2025 Note Table formatting fro m the original result was not included. Procedure Radiofrequency Ablation Indication Cervical spondylosis without myelopathy Medications midazolam (Versed) injection 2 mg fentaNYL PF (Sublimaze) injection 100 mcg dexAMETHasone (PF) (Decadron) injection 10 mg BUPivacaine HCl (Marcaine) 0.5 % (5 mg/mL) injection 3 mL lidocaine PF (Xylocaine) 20 mg/mL (2 %) injection 2 mL (Totals for administrations occurring from 1044 to 1058 on 06/15/25) Preprocedure A history and physical has been performed, and patient medication allergies have been reviewed. The patient's tolerance of previous anesthesia has been reviewed. The risks and benefits of the procedure and the sedation options and risks were discussed with the patient. All questions were answered and informed consent obtained. Details of the Procedure Lori Altamirano is a 74 y.o. female with cervical spondylosis here for right cervical facet radiofrequency ablation. The patient had>80% pain relief with prior MBB x2. Procedure performed: right cervical radiofrequency ablation of at C2-3, third occipital nerve, C3-4 using fluoroscopic guidance Indication: Cervical spondylosis Performed by: Dr. Germania Landry Debeaker: Kj Ellis The patient was identified in the preoperative holding area and informed consent was obtained. The surgical area was marked according to protocol. The patient was transported to the operating room on the rfairfield and a timeout was conducted. ASA Standard monitors were applied. The patient was transferred to the operating room table and placed in prone position. X-ray guidance was used to ascertain the appropriate levels. The site was prepped and draped in the usual fashion using ChloraPrep and sterile towels. 22 gauge 5 mm active tip RFA needles were advanced to the target areas at the middle of the trapezoid plate using biplanar fluoroscopy. A total of 1 ml contrast agent was used, with good spread beneath the muscle aponeurosis, and no intravascular escape. Sensory and motor testing was conducted at all 3 levels with appropriate response. Then after 0.5 mL of 2% Lidocaine injected at each level prior to lesioning. We then carried out the radiofrequency neurotomy at 80 C for 1 minute 30 seconds without issue. Subsequently, a total of 1 ml of 0.5% Bupivacaine and 1 mg of dexamethasone was injected at each level. The needles were removed. The procedure was done without any evidence of complications and the patient was transported to the recovery area. The patient was discharged in stable condition. Anesthesia: Local and IV sedation All medications used were preservative free and confirmed to be not-. Pre-procedure Pain Score: 7 Post-procedure pain Score: 0 Germania Landry MD, PhD Procedure Provider Germania Landry MD PhD Procedure Location [facility] [address] [address] Referring Provider Germania Landry MD PhD [id number] [id number] IMAGING 06-15-2025 History and physical note Pain Management H&P History Of Present Illness Lori Altamirano is a 74 y.o. female presents for procedure stated below. Endorses no changes in past medical history or medical health since last seen in clinic. Past Medical History She has no past medical history on file. Surgical History She has no past surgical history on file. Social History She reports that she has quit smoking. Her smoking use included cigarettes. She does not have any smokeless tobacco history on file. She reports current alcohol use. She reports that she does not use drugs. Family History Family History[1] Allergies Patient has no known allergies. Review of Symptoms: Constitutional: Negative for chills, diaphoresis or fever HENT: Negative for neck swelling Eyes:. Negative for eye pain Respiratory:. Negative for cough, shortness of breath or wheezing Cardiovascular:. Negative for chest pain or palpitations Gastrointestinal:. Negative for abdominal pain, nausea and vomiting Genitourinary:. Negative for urgency Musculoskeletal: Positive for back pain. Positive for joint pain. Denies falls within the past 3 months. Skin: Negative for wounds or itching Neurological: Negative for dizziness, seizures, loss of consciousness and weakness Endo/Heme/Allergies: Does not bruise/bleed easily Psychiatric/Behavioral: Negative for depression. The patient does not appear anxious. Pre-sedation Evaluation ASA class 2 Mallampati score 2 PHYSICAL EXAM Vitals signs reviewed Constitutional: General: Not in acute distress Appearance: Normal appearance. Not ill-appearing. HENT: Head: Normocephalic and atraumatic Eyes: Conjunctiva/sclera: Conjunctivae normal Cardiovascular: Rate and Rhythm: Normal rate and regular rhythm Pulmonary: Effort: No respiratory distress Abdominal: Palpations: Abdomen is soft Musculoskeletal: OCASIO Skin: General: Skin is warm and dry Neurological: General: No focal deficit present Psychiatric: Mood and Affect: Mood normal Behavior: Behavior normal Last Recorded Vitals BP (!) 177/91 Pulse 82 Temp 36.7 C (98.1 F) (Temporal) Resp 16 Wt 108 kg (237 lb) SpO2 98% Relevant Results Current Outpatient Medications Medication Instructions losartan (COZAAR) 50 mg, Daily pravastatin (PRAVACHOL) 40 mg, Nightly rOPINIRole XL (REQUIP XL) 6 mg, Nightly tiZANidine (ZANAFLEX) 2 mg, oral, Nightly PRN No results found for this or any previous visit from the past 1000 days. ASSESSMENT/PLAN Lori Altamirano is a 74 y.o. female here for right RFA at C2-3 and C3-4 with fluoroscopy Patient denies any recent antibiotic use or infections, denies any blood thinner use, and denies contrast or local anesthetic allergies Risks, benefits, alternatives discussed. All questions answered to the best of my ability. Patient agrees to proceed. Our plan is as follows: - Proceed with aforementioned procedure Kj Breaux MD Chronic Pain Management Fellow [1] No family history on file. Cosigned by Germania Landry MD PhD at 06/15/2025 11:04 AM EDT [facility] Work Phone: 06-15-2025 History and physical note Pain Management H&P History Of Present Illness Lori Altamirano is a 74 y.o. female presents for procedure stated below. Endorses no changes in past medical history or medical health since last seen in clinic. Past Medical History She has no past medical history on file. Surgical History She has no past surgical history on file. Social History She reports that she has quit smoking. Her smoking use included cigarettes. She does not have any smokeless tobacco history on file. She reports current alcohol use. She reports that she does not use drugs. Family History Family History[1] Allergies Patient has no known allergies. Review of Symptoms: Constitutional: Negative for chills, diaphoresis or fever HENT: Negative for neck swelling Eyes:. Negative for eye pain Respiratory:. Negative for cough, shortness of breath or wheezing Cardiovascular:. Negative for chest pain or palpitations Gastrointestinal:. Negative for abdominal pain, nausea and vomiting Genitourinary:. Negative for urgency Musculoskeletal: Positive for back pain. Positive for joint pain. Denies falls within the past 3 months. Skin: Negative for wounds or itching Neurological: Negative for dizziness, seizures, loss of consciousness and weakness Endo/Heme/Allergies: Does not bruise/bleed easily Psychiatric/Behavioral: Negative for depression. The patient does not appear anxious. Pre-sedation Evaluation ASA class 2 Mallampati score 2 PHYSICAL EXAM Vitals signs reviewed Constitutional: General: Not in acute distress Appearance: Normal appearance. Not ill-appearing. HENT: Head: Normocephalic and atraumatic Eyes: Conjunctiva/sclera: Conjunctivae normal Cardiovascular: Rate and Rhythm: Normal rate and regular rhythm Pulmonary: Effort: No respiratory distress Abdominal: Palpations: Abdomen is soft Musculoskeletal: OCASIO Skin: General: Skin is warm and dry Neurological: General: No focal deficit present Psychiatric: Mood and Affect: Mood normal Behavior: Behavior normal Last Recorded Vitals BP (!) 177/91 Pulse 82 Temp 36.7 C (98.1 F) (Temporal) Resp 16 Wt 108 kg (237 lb) SpO2 98% Relevant Results Current Outpatient Medications Medication Instructions losartan (COZAAR) 50 mg, Daily pravastatin (PRAVACHOL) 40 mg, Nightly rOPINIRole XL (REQUIP XL) 6 mg, Nightly tiZANidine (ZANAFLEX) 2 mg, oral, Nightly PRN No results found for this or any previous visit from the past 1000 days. ASSESSMENT/PLAN Lori Altamirano is a 74 y.o. female here for right RFA at C2-3 and C3-4 with fluoroscopy Patient denies any recent antibiotic use or infections, denies any blood thinner use, and denies contrast or local anesthetic allergies Risks, benefits, alternatives discussed. All questions answered to the best of my ability. Patient agrees to proceed. Our plan is as follows: - Proceed with aforementioned procedure Kj Breaux MD Chronic Pain Management Fellow [1] No family history on file. Cosigned by Germania Landry MD PhD at 06/15/2025 11:04 AM EDT documented in this encounter [facility] Work Phone: 06-15-2025 Hospital Discharge instructions Kj Breaux MD - 06/15/2025 9:56 AM EDT DISCHARGE INSTRUCTIONS FOR INJECTIONS After most injections, it is recommended that you relax and limit your activity for the remainder of the day unless you have been told otherwise by your pain physician. You should not drive a car, operate machinery, or make important legal decisions unless otherwise directed by your pain physician. You may resume your normal activity, including exercise, tomorrow. Keep a written pain diary of how much pain relief you experienced following the injection procedure and the length of time of pain relief you experienced pain relief. Following diagnostic injections like medial branch nerve blocks, sacroiliac joint blocks, stellate ganglion injections and other blocks, it is very important you record the specific amount of pain relief you experienced immediately after the injectionand how long it lasted. Your doctor will ask you for this information at your follow up visit. For all injections, please keep the injection site dry and inspect the site for a couple of days. You may remove the Band-Aid the day of the injection at any time. Some discomfort, bruising or slight swelling may occur at the injection site. This is not abnormal if it occurs. If needed you may: -Take over the counter medication such as Tylenol or Motrin. -Apply an ice pack for 30 minutes, 2 to 3 times a day for the first 24 hours. You may shower today; no soaking baths, hot tubs, whirlpools or swimming pools for two days. If you are given steroids in your injection, it may take 3-5 days for the steroid medication to take effect. You may notice a worsening of your symptoms for 1-2 days after the injection. This is not abnormal. You may use acetaminophen, ibuprofen, or prescription medication that your doctor may have prescribed for you if you need to do so. A few common side effects of steroids include facial flushing, sweating, restlessness, irritability,difficulty sleeping, increase in blood sugar, and increased blood pressure. If you have diabetes, please monitor your blood sugar at least once a day for at least 5 days. If you have poorly controlled high blood pressure, monitoryour blood pressure for at least 2 days and contact your primary care physician if these numbers are unusually high for you. If you take aspirin or non-steroidal anti-inflammatory drugs (examples are Motrin, Advil, ibuprofen, Naprosyn, Voltaren, Relafen, etc.) you may restart these this evening, but stop taking it 3 days before your next appointment, unless instructed otherwiseby your physician. You do not need to discontinue oso-nfzbcmr-qwnhubingn pain medications prior to an injection (examples: Celebrex, tramadol, hydrocodone and acetaminophen). If you take a blood thinning medication (Coumadin, Lovenox, Fragmin,Ticlid, Plavix, Pradaxa, etc.), please discuss this with your primary care physician/oxygen equipment technician and your pain physician. These medications MUST be discontinued before you can have an injection safely, without the risk of uncontrolled bleeding. If these medications are not discontinued for an appropriate period of time, you will not be able to receivean injection. Please adhere to instructions given to you about when to restart your blood thinning medication. If you have any questions please reach out to our team. If you are taking Coumadin, please have your INR checked the morning of your procedure and bring the result to your appointment unless otherwise instructed. If your INR is over 1.2, your injection may need to be rescheduled to avoid uncontrolled bleeding from the needle placement. Call [facility] facsimile operator and ask for Pain Management at [phone] between 8am-4pm Saturday - Saturday if you are experiencing the following: If you received an epidural or spinal injection: -Headache that doesnot go away with medicine, is worse when sitting or standing up, and is greatly relieved upon lying down. -Severe pain worse than or different than your baseline pain. -Chills or fever (101 F or greater). -Drainage or signs of infection at the injection site Go directly to the Emergency Department if you are experiencing the following and received an epidural or spinal injection: -Abrupt weakness or progressive weakness in your legs that starts after you leave the clinic. -Abrupt severe or worsening numbness in your legs. -Inability to urinate after the injection or loss of bowel or bladder control without the urge to defecate or urinate. If you have a clinical question that cannot wait until your next appointment, please call [phone] between 8am-4pm Saturday - Saturday or send a [employer] message. We do our best to return all non-emergency messages within 24 hours, Saturday - Saturday. A nurse or physician will return your message. You may also try calling and they will do their best to answer your question(s): - Dr. Juan A Villalba's nurse ([phone]) - Dr. Leonidas Carreon/Dr. Larson's nurse ([phone]) - Dr. Gris Mcarthur/Tye's nurse ([phone]) If you need to cancel an appointment, please call the scheduling staff at [phone] during normal business hours or leave a message at least 24 hours in advance. If you are going to be sedated for your next procedure, you MUST have responsible adult who can legally drive accompany you home. You cannot eat or drink for at least eight hours prior to the planned procedure if you are going to receive sedation. You may take your non-blood thinning medications with a small sip of water. documented in this encounter [facility] Work Phone: 05-13-2025 Note Table formatting fro m the original result was not included. Procedure Medial Nerve Branch Block Indication Cervical spondylosis without myelopathy, Radiculopathy of hybvdyqp-wwjvgbq-ztfxz region Medications fentaNYL PF (Sublimaze) injection 50 mcg midazolam (Versed) injection 1 mg BUPivacaine HCl (Marcaine) 0.5 % (5 mg/mL) injection 4 mL iohexol (OMNIPaque) 240 mg iodine/mL solution 2 mL (Totals for administrations occurring from 1024 to 1039 on 05/13/25) Preprocedure A history and physical has been performed, and patient medication allergies have been reviewed. The patient's tolerance of previous anesthesia has been reviewed. The risks and benefits of the procedure and the sedation options and risks were discussed with the patient. All questions were answered and informed consent obtained. Details of the Procedure Lori Altamirano is a 74 y.o. female with cervical spondylosis here for left medial branch block #1 Procedure performed: Left cervical medial branch blocks at C2-3, third occipital nerve, C3-4 using fluoroscopic guidance Indication: Cervical spondylosis Performed by: Dr. Germania Landry Debeaker: Nicolette Emery DO The patient was identified in the preoperative holding area and informed consent was obtained. The surgical area was marked according to protocol. The patient was transported to the operating room on the [facility] and a timeout was conducted. ASA Standard monitors were applied. The patient was transferred to the operating room table and placed in prone position. X-ray guidance was used to ascertain the appropriate levels. The site was prepped and draped in the usual fashion using ChloraPrep and sterile towels. 22 gauge 3.5 inch quincke needles were advanced to the target areas at the middle of the trapezoid plate using biplanar fluoroscopy. A total of 1 ml contrast agent was used, with good spread beneath the muscle aponeurosis, and no intravascular escape. Then after 1 mL of 0.5% bupivacaine without epinephrine were injected at each level. The needles were removed. Hemostasis was ensured. A Band-Aid was applied. The procedure was done without any evidence of complications and the patient was transported to the recovery area. The patient was discharged in stable condition. Anesthesia: Local and IV sedation All medications used were preservative free and confirmed to be not-. Pre-procedure Pain Score: 8 Post-procedure pain Score: 1 Germania Landry MD, PhD Procedure Provider Germania Landry MD PhD Procedure Location [facility] [address] [facility] [address] Referring Provider Germania Landry MD PhD [id number] [place] [address] IMAGING 05-13-2025 History and physical note Pain Management H&P History Of Present Illness Lori Altamirano is a 74 y.o. female presents for procedure stated below. Endorses no changes in past medical history or medical health since last seen in clinic. Past Medical History She has no past medical history on file. Surgical History She has no past surgical history on file. Social History She reports that she has quit smoking. Her smoking use included cigarettes. She does not have any smokeless tobacco history on file. She reports current alcohol use. She reports that she does not use drugs. Family History Family History[1] Allergies Patient has no known allergies. Review of Symptoms: Constitutional: Negative for chills, diaphoresis or fever HENT: Negative for neck swelling Eyes:. Negative for eye pain Respiratory:. Negative for cough, shortness of breath or wheezing Cardiovascular:. Negative for chest pain or palpitations Gastrointestinal:. Negative for abdominal pain, nausea and vomiting Genitourinary:. Negative for urgency Musculoskeletal: Positive for back pain. Positive for joint pain. Denies falls within the past 3 months. Skin: Negative for wounds or itching Neurological: Negative for dizziness, seizures, loss of consciousness and weakness Endo/Heme/Allergies: Does not bruise/bleed easily Psychiatric/Behavioral: Negative for depression. The patient does not appear anxious. Pre-sedation Evaluation ASA class 2 Mallampati score 2 PHYSICAL EXAM Vitals signs reviewed Constitutional: General: Not in acute distress Appearance: Normal appearance. Not ill-appearing. HENT: Head: Normocephalic and atraumatic Eyes: Conjunctiva/sclera: Conjunctivae normal Cardiovascular: Rate and Rhythm: Normal rate and regular rhythm Pulmonary: Effort: No respiratory distress Abdominal: Palpations: Abdomen is soft Musculoskeletal: OCASIO Skin: General: Skin is warm and dry Neurological: General: No focal deficit present Psychiatric: Mood and Affect: Mood normal Behavior: Behavior normal Last Recorded Vitals There were no vitals taken for this visit. Relevant Results Current Outpatient Medications Medication Instructions losartan (COZAAR) 50 mg, Daily pravastatin (PRAVACHOL) 40 mg, Nightly rOPINIRole XL (REQUIP XL) 6 mg, Nightly tiZANidine (ZANAFLEX) 2 mg, oral, Nightly PRN No results found for this or any previous visit from the past 1000 days. ASSESSMENT/PLAN Lori Altamirano is a 74 y.o. female here for right diagnostic medial branch block #1 at C2-3 and C3-4 with fluoroscopy she denies any recent antibiotic use or infections, she denies any blood thinner use , and she has no known medical allergies Risks, benefits, alternatives discussed. All questions answered to the best of my ability. Patient agrees to proceed. Our plan is as follows: - Proceed with aforementioned procedure Nicolette Emery DO Chronic Pain Management Fellow [1] No family history on file. Cosigned by Germania Landry MD PhD at 05/13/2025 10:03 AM EDT [facility] Work Phone: 05-13-2025 History and physical note Pain Management H&P History Of Present Illness Lori Altamirano is a 74 y.o. female presents for procedure stated below. Endorses no changes in past medical history or medical health since last seen in clinic. Past Medical History She has no past medical history on file. Surgical History She has no past surgical history on file. Social History She reports that she has quit smoking. Her smoking use included cigarettes. She does not have any smokeless tobacco history on file. She reports current alcohol use. She reports that she does not use drugs. Family History Family History[1] Allergies Patient has no known allergies. Review of Symptoms: Constitutional: Negative for chills, diaphoresis or fever HENT: Negative for neck swelling Eyes:. Negative for eye pain Respiratory:. Negative for cough, shortness of breath or wheezing Cardiovascular:. Negative for chest pain or palpitations Gastrointestinal:. Negative for abdominal pain, nausea and vomiting Genitourinary:. Negative for urgency Musculoskeletal: Positive for back pain. Positive for joint pain. Denies falls within the past 3 months. Skin: Negative for wounds or itching Neurological: Negative for dizziness, seizures, loss of consciousness and weakness Endo/Heme/Allergies: Does not bruise/bleed easily Psychiatric/Behavioral: Negative for depression. The patient does not appear anxious. Pre-sedation Evaluation ASA class 2 Mallampati score 2 PHYSICAL EXAM Vitals signs reviewed Constitutional: General: Not in acute distress Appearance: Normal appearance. Not ill-appearing. HENT: Head: Normocephalic and atraumatic Eyes: Conjunctiva/sclera: Conjunctivae normal Cardiovascular: Rate and Rhythm: Normal rate and regular rhythm Pulmonary: Effort: No respiratory distress Abdominal: Palpations: Abdomen is soft Musculoskeletal: OCASIO Skin: General: Skin is warm and dry Neurological: General: No focal deficit present Psychiatric: Mood and Affect: Mood normal Behavior: Behavior normal Last Recorded Vitals There were no vitals taken for this visit. Relevant Results Current Outpatient Medications Medication Instructions losartan (COZAAR) 50 mg, Daily pravastatin (PRAVACHOL) 40 mg, Nightly rOPINIRole XL (REQUIP XL) 6 mg, Nightly tiZANidine (ZANAFLEX) 2 mg, oral, Nightly PRN No results found for this or any previous visit from the past 1000 days. ASSESSMENT/PLAN Lori Altamirano is a 74 y.o. female here for right diagnostic medial branch block #1 at C2-3 and C3-4 with fluoroscopy she denies any recent antibiotic use or infections, she denies any blood thinner use , and she has no known medical allergies Risks, benefits, alternatives discussed. All questions answered to the best of my ability. Patient agrees to proceed. Our plan is as follows: - Proceed with aforementioned procedure Nicolette Emery DO Chronic Pain Management Fellow [1] No family history on file. Cosigned by Germania Landry MD PhD at 05/13/2025 10:03 AM EDT documented in this encounter [facility] Work Phone: 05-13-2025 Hospital Discharge instructions Nicolette Emery DO - 05/13/2025 10:07 AM EDT DISCHARGE INSTRUCTIONS FOR INJECTIONS After most injections, it is recommended that you relax and limit your activity for the remainder of the day unless you have been told otherwise by your pain physician. You should not drive a car, operate machinery, or make important legal decisions unless otherwise directed by your pain physician. You may resume your normal activity, including exercise, tomorrow. Keep a written pain diary of how much pain relief you experienced following the injection procedure and the length of time of pain relief you experienced pain relief. Following diagnostic injections like medial branch nerve blocks, sacroiliac joint blocks, stellate ganglion injections and other blocks, it is very important you record the specific amount of pain relief you experienced immediately after the injectionand how long it lasted. Your doctor will ask you for this information at your follow up visit. For all injections, please keep the injection site dry and inspect the site for a couple of days. You may remove the Band-Aid the day of the injection at any time. Some discomfort, bruising or slight swelling may occur at the injection site. This is not abnormal if it occurs. If needed you may: -Take over the counter medication such as Tylenol or Motrin. -Apply an ice pack for 30 minutes, 2 to 3 times a day for the first 24 hours. You may shower today; no soaking baths, hot tubs, whirlpools or swimming pools for two days. If you are given steroids in your injection, it may take 3-5 days for the steroid medication to take effect. You may notice a worsening of your symptoms for 1-2 days after the injection. This is not abnormal. You may use acetaminophen, ibuprofen, or prescription medication that your doctor may have prescribed for you if you need to do so. A few common side effects of steroids include facial flushing, sweating, restlessness, irritability,difficulty sleeping, increase in blood sugar, and increased blood pressure. If you have diabetes, please monitor your blood sugar at least once a day for at least 5 days. If you have poorly controlled high blood pressure, monitoryour blood pressure for at least 2 days and contact your primary care physician if these numbers are unusually high for you. If you take aspirin or non-steroidal anti-inflammatory drugs (examples are Motrin, Advil, ibuprofen, Naprosyn, Voltaren, Relafen, etc.) you may restart these this evening, but stop taking it 3 days before your next appointment, unless instructed otherwiseby your physician. You do not need to discontinue oip-mjaaxby-tbanxcxggl pain medications prior to an injection (examples: Celebrex, tramadol, hydrocodone and acetaminophen). If you take a blood thinning medication (Coumadin, Lovenox, Fragmin,Ticlid, Plavix, Pradaxa, etc.), please discuss this with your primary care physician/oxygen equipment technician and your pain physician. These medications MUST be discontinued before you can have an injection safely, without the risk of uncontrolled bleeding. If these medications are not discontinued for an appropriate period of time, you will not be able to receivean injection. Please adhere to instructions given to you about when to restart your blood thinning medication. If you have any questions please reach out to our team. If you are taking Coumadin, please have your INR checked the morning of your procedure and bring the result to your appointment unless otherwise instructed. If your INR is over 1.2, your injection may need to be rescheduled to avoid uncontrolled bleeding from the needle placement. Call [facility] facsimile operator and ask for Pain Management at [phone] between 8am-4pm Saturday - Saturday if you are experiencing the following: If you received an epidural or spinal injection: -Headache that doesnot go away with medicine, is worse when sitting or standing up, and is greatly relieved upon lying down. -Severe pain worse than or different than your baseline pain. -Chills or fever (101 F or greater). -Drainage or signs of infection at the injection site Go directly to the Emergency Department if you are experiencing the following and received an epidural or spinal injection: -Abrupt weakness or progressive weakness in your legs that starts after you leave the clinic. -Abrupt severe or worsening numbness in your legs. -Inability to urinate after the injection or loss of bowel or bladder control without the urge to defecate or urinate. If you have a clinical question that cannot wait until your next appointment, please call [phone] between 8am-4pm Saturday - Saturday or send a [employer] message. We do our best to return all non-emergency messages within 24 hours, Saturday - Saturday. A nurse or physician will return your message. You may also try calling and they will do their best to answer your question(s): - Dr. Gris Mcarthur/Tye's nurse ([phone]) If you need to cancel an appointment, please call the scheduling staff at [phone] during normal business hours or leave a message at least 24 hours in advance. If you are going to be sedated for your next procedure, you MUST have responsible adult who can legally drive accompany you home. You cannot eat or drink for at least eight hours prior to the planned procedure if you are going to receive sedation. You may take your non-blood thinning medications with a small sip of water. documented in this encounter [facility] Work Phone: 04-28-2025 History of Present illness Narrative Subjective Patient ID: Lori Altamirano is a 74 y.o. female with a past medical history of chronic neck pain. HPI: Constanza Altamirano is a 74 y.o. female with a past medical history of obesity, arthritis, chronic neck pain, who presents for follow up of her neck pain. She had C1-2 facet joint injection2 months ago, and that has provided her with relief in her occipital area and now presented with lower neck pain. Her pain is nonradiating and localized to her neck mainly on the right side. she did have an MRI which showed multilevel mild facet arthropathy in her cervical spine she takes Tylenol only for pain. She denied any trauma or other related factors to cause her pain. Physical Therapy: The patient has not done physical therapy within the past six months Other Conservative Measures she has tried: Injections Classes of medications tried in the past: Acetaminophen Review of Systems 13-point ROS done and negative except for HPI. Current Outpatient Medications Medication Instructions losartan (COZAAR) 50 mg, Daily pravastatin (PRAVACHOL) 40 mg, Nightly rOPINIRole XL (REQUIP XL) 6 mg, Nightly tiZANidine (ZANAFLEX) 2 mg, oral, Nightly PRN Medical History[1] Surgical History[2] Family History[3] RX Allergies[4] Objective There were no vitals filed for this visit. Physical Exam General: NAD, well groomed, well nourished Eyes: Non-icteric sclera, EOMI Ears, Nose, Mouth, and Throat: External ears and nose appear to be without deformity or rash. No lesions or masses noted. Hearing is grossly intact. Neck: + focal TTP over the R>L upper and mid facet joints. Increased pain on extension and lateral rotation Respiratory: Nonlabored breathing Cardiovascular: trace peripheral edema Skin: No rashes or open lesions/ulcers identified on skin. Neurologic: Cranial nerves grossly intact. Strength: 5/5 and symmetric plantar/dorsiflexion Sensation: Normal to light touch throughout; pinprick intact throughout. DTRs:normal and symmetric throughout [place]: absent Clonus: absent Back: Palpation: Tenderness to palpation over right cervical paraspinous muscles. Spurling's test: Negative bilaterally. Psychiatric: Alert, orientation to person, place, and time. Cooperative. Imaging personally reviewed and independently interpreted Assessment/Plan 74 years old female with history of chronic neck pain who presented for follow-up for right atlantoaxial injection 2 months ago. It has helped with her occipital and throbbing pain and improved neck range of motion however, she presented today with a lower neck pain with consistent facet arthropathy that is consistent with her physical exam ,clinical picture and imaging. We will plan for diagnostic medial branch. Plan: - Rt C2-C3 and C3-C4 diagnostic medial branch block with fluoroscopy - Cervical spine x-ray today Planned Procedure: The patient has failed treatment with : have significant limitations in their sleep quality due to the pain and have significant limitations of their quality of life due to the pain We discussed the risks, benefits and alternatives of the procedure including but not limited to: , Lack of efficacy , Transiently worsening pain , Bleeding, Infection , and Nerve Damage Follow up: After procedure The patient was invited to contact us back anytime with any questions or concerns and follow-up with us in the office as needed. There are no diagnoses linked to this encounter. This note was generated with the aid of dictation software, there may be typos despite my attempts at proofreading. Lucy Rhodes MD PGY3, Anesthesiology I saw and evaluated the patient. I personally obtained the garrison and critical portions of the history and physical exam or was physically present for garrison and critical portions performed by the resident/fellow. I reviewed the resident/fellow's documentation and discussed the patient with the resident/fellow. I agree with the resident/fellow's medical decision making as documented in the note. The patient did really well following the right C1-C2 facet joint injection on 03/02/2025. She still reports no pain over the right suboccipital area, and now her pain is little bit lower over the C2-3 and C3-4 facet joint. We had a good discussion about different treatment options and plan of care. We agreed on proceeding with right diagnostic medial branch block at C2-3 and C3-4 with fluoroscopy, and then reevaluate her for radiofrequency ablation procedure. Medical necessity: The patient is presenting primarily with axial Cervical pain and denies any significant new radicular symptoms or weakness. The pain is constant and of moderate severity that interferes with activities of daily living and sleep. Physical exam revealed positive pain over the facet joints and increased pain on extension and lateral rotation. The patient failed conservative therapy and physical therapy/supervised home exercise program. Cervical spine imaging showed facet arthropathy. Plan is to proceed with diagnostic medial branch block with local anesthetic at Right C2-3 and C3-4 with fluoroscopy and consider radiofrequency ablation depending on the patient's response and progress. We discussed the risks, benefits and alternatives to the procedure(s) and the patient would like to proceed. The patient was educated about red flag symptoms and signs. Fall risk education. Germania Landry MD PhD [1] No past medical history on file. [2] No past surgical history on file. [3] No family history on file. [4] No Known Allergies documented in this encounter [facility] Work Phone: 03-02-2025 Note Table formatting fro m the original result was not included. Procedure Right C1-2 facet joint injection Indication Cervical spondylosis without myelopathy, Radiculopathy of hcffibfn-kzwctso-ettdh region Medications midazolam (Versed) injection 1 mg fentaNYL PF (Sublimaze) injection 50 mcg dexAMETHasone (PF) (Decadron) injection 10 mg bupivacaine PF (Marcaine) 0.5 % (5 mg/mL) injection 2 mL iohexol (OMNIPaque) 240 mg iodine/mL solution 0.5 mL (Totals for administrations occurring from 0938 to 0950 on 03/02/25) Preprocedure A history and physical has been performed, and patient medication allergies have been reviewed. The patient's tolerance of previous anesthesia has been reviewed. The risks and benefits of the procedure and the sedation options and risks were discussed with the patient. All questions were answered and informed consent obtained. Details of the Procedure Lori Altamirano is a 74 y.o. female with cervical spondylosis and AAJ pain here for AAJ (C1-2) joint injection Procedure performed: right atlantoaxial joint injection using fluoroscopic guidance Indication: Cervical spondylosis Performed by: Dr. Germania Landry Debeaker: Rhonda Calderon DO The patient was identified in the preoperative holding area and informed consent was obtained. The surgical area was marked according to protocol. The patient was transported to the operating room on the [facility] and a timeout was conducted. ASA Standard monitors were applied. The patient was transferred to the operating room table and placed in prone position. X-ray guidance was used to identify C1-C2 joint. The site was prepped and draped in the usual fashion using ChloraPrep and sterile towels. 25 gauge 3.5 inch needle was advanced to the target areas at the junction of the lateral third and middle third of the joint. Injection of iohexol contrast with appropriate intra-articular spread, no intravascular spread, and there was reproduction of the patient's symptoms of pain, but no neuropathic pain. Then after; a mixture of 1.5 cc of 0.5% bupivacaine and 5 mg dexamethasone was injected without pain. The needle was removed. Hemostasis was ensured. A Band-Aid was applied. The procedure was done without any evidence of complications and the patient was transported to the recovery area. The patient was discharged in stable condition. Anesthesia: Local and IV sedation All medications used were preservative free and confirmed to be not-. Pre-procedure Pain Score: 6 Post-procedure pain Score:2 Germania Landry MD, PhD Procedure Provider Germania Landry MD PhD Procedure Location [facility] [id number] [facility] [id number] Referring Provider Germania Landry MD PhD [id number] [place] [address] IMAGING 03-02-2025 History and physical note Pain Management H&P History Of Present Illness Lori Altamirano is a 74 y.o. female presents for procedure state below. Endorses no changes in past medical history or medical health since last seen in clinic. ASA: 2 Mallampati: 2 Past Medical History She has no past medical history on file. Surgical History She has no past surgical history on file. Social History She reports that she has quit smoking. Her smoking use included cigarettes. She does not have any smokeless tobacco history on file. She reports current alcohol use. She reports that she does not use drugs. Family History Family History[1] Allergies Patient has no known allergies. Review of Symptoms: Constitutional: Negative for chills, diaphoresis or fever HENT: Negative for neck swelling Eyes:. Negative for eye pain Respiratory:. Negative for cough, shortness of breath or wheezing Cardiovascular:. Negative for chest pain or palpitations Gastrointestinal:. Negative for abdominal pain, nausea and vomiting Genitourinary:. Negative for urgency Musculoskeletal: Positive for back pain. Positive for joint pain. Denies falls within the past 3 months. Skin: Negative for wounds or itching Neurological: Negative for dizziness, seizures, loss of consciousness and weakness Endo/Heme/Allergies: Does not bruise/bleed easily Psychiatric/Behavioral: Negative for depression. The patient does not appear anxious. PHYSICAL EXAM Vitals signs reviewed Constitutional: General: Not in acute distress Appearance: Normal appearance. Not ill-appearing. HENT: Head: Normocephalic and atraumatic Eyes: Conjunctiva/sclera: Conjunctivae normal Cardiovascular: Rate and Rhythm: Normal rate and regular rhythm Pulmonary: Effort: No respiratory distress Abdominal: Palpations: Abdomen is soft Musculoskeletal: OCASIO Skin: General: Skin is warm and dry Neurological: General: No focal deficit present Psychiatric: Mood and Affect: Mood normal Behavior: Behavior normal Last Recorded Vitals BP 179/87 Pulse 75 Temp 37.1 C (98.8 F) (Temporal) Resp 16 Wt 109 kg (240 lb) SpO2 99% Relevant Results Current Outpatient Medications Medication Instructions losartan (COZAAR) 50 mg, Daily pravastatin (PRAVACHOL) 40 mg, Nightly rOPINIRole XL (REQUIP XL) 6 mg, Nightly tiZANidine (ZANAFLEX) 2 mg, oral, Nightly PRN No results found for this or any previous visit from the past 1000 days. No image results found. 1. Cervical spondylosis without myelopathy FL pain management FL pain management Medial Nerve Branch Block Medial Nerve Branch Block Right C1-2 arthritis 2. Radiculopathy of saqpvhqu-ckiqwun-tcdfi region FL pain management FL pain management Medial Nerve Branch Block Medial Nerve Branch Block ASSESSMENT/PLAN Lori Altamirano is a 74 y.o. female presenting for right atlantoaxial joint injection under fluoroscopy Patient denies any recent antibiotic use or infections, denies any blood thinner use, and denies contrast or local anesthetic allergies Risks, benefits, alternatives discussed. All questions answered to the best of my ability. Patient agrees to proceed. Our plan is as follows: - Proceed with aforementioned procedure Rhonda Calderon DO Pain fellow [1] No family history on file. Cosigned by Germania Landry MD PhD at 03/02/2025 9:37 AM EDT [facility] Work Phone: 03-02-2025 History and physical note Pain Management H&P History Of Present Illness Lori Altamirano is a 74 y.o. female presents for procedure state below. Endorses no changes in past medical history or medical health since last seen in clinic. ASA: 2 Mallampati: 2 Past Medical History She has no past medical history on file. Surgical History She has no past surgical history on file. Social History She reports that she has quit smoking. Her smoking use included cigarettes. She does not have any smokeless tobacco history on file. She reports current alcohol use. She reports that she does not use drugs. Family History Family History[1] Allergies Patient has no known allergies. Review of Symptoms: Constitutional: Negative for chills, diaphoresis or fever HENT: Negative for neck swelling Eyes:. Negative for eye pain Respiratory:. Negative for cough, shortness of breath or wheezing Cardiovascular:. Negative for chest pain or palpitations Gastrointestinal:. Negative for abdominal pain, nausea and vomiting Genitourinary:. Negative for urgency Musculoskeletal: Positive for back pain. Positive for joint pain. Denies falls within the past 3 months. Skin: Negative for wounds or itching Neurological: Negative for dizziness, seizures, loss of consciousness and weakness Endo/Heme/Allergies: Does not bruise/bleed easily Psychiatric/Behavioral: Negative for depression. The patient does not appear anxious. PHYSICAL EXAM Vitals signs reviewed Constitutional: General: Not in acute distress Appearance: Normal appearance. Not ill-appearing. HENT: Head: Normocephalic and atraumatic Eyes: Conjunctiva/sclera: Conjunctivae normal Cardiovascular: Rate and Rhythm: Normal rate and regular rhythm Pulmonary: Effort: No respiratory distress Abdominal: Palpations: Abdomen is soft Musculoskeletal: OCASIO Skin: General: Skin is warm and dry Neurological: General: No focal deficit present Psychiatric: Mood and Affect: Mood normal Behavior: Behavior normal Last Recorded Vitals BP 179/87 Pulse 75 Temp 37.1 C (98.8 F) (Temporal) Resp 16 Wt 109 kg (240 lb) SpO2 99% Relevant Results Current Outpatient Medications Medication Instructions losartan (COZAAR) 50 mg, Daily pravastatin (PRAVACHOL) 40 mg, Nightly rOPINIRole XL (REQUIP XL) 6 mg, Nightly tiZANidine (ZANAFLEX) 2 mg, oral, Nightly PRN No results found for this or any previous visit from the past 1000 days. No image results found. 1. Cervical spondylosis without myelopathy FL pain management FL pain management Medial Nerve Branch Block Medial Nerve Branch Block Right C1-2 arthritis 2. Radiculopathy of bhufrxad-byusqfr-hmcmk region FL pain management FL pain management Medial Nerve Branch Block Medial Nerve Branch Block ASSESSMENT/PLAN Lori Altamirano is a 74 y.o. female presenting for right atlantoaxial joint injection under fluoroscopy Patient denies any recent antibiotic use or infections, denies any blood thinner use, and denies contrast or local anesthetic allergies Risks, benefits, alternatives discussed. All questions answered to the best of my ability. Patient agrees to proceed. Our plan is as follows: - Proceed with aforementioned procedure Rhonda Calderon DO Pain fellow [1] No family history on file. Cosigned by Germania Landry MD PhD at 03/02/2025 9:37 AM EDT documented in this encounter [facility] Work Phone: 03-02-2025 Hospital Discharge instructions Rhonda Calderon DO - 03/02/2025 9:36 AM EDT DISCHARGE INSTRUCTIONS FOR INJECTIONS After most injections, it is recommended that you relax and limit your activity for the remainder of the day unless you have been told otherwise by your pain physician. You should not drive a car, operate machinery, or make important legal decisions unless otherwise directed by your pain physician. You may resume your normal activity, including exercise, tomorrow. Keep a written pain diary of how much pain relief you experienced following the injection procedure and the length of time of pain relief you experienced pain relief. Following diagnostic injections like medial branch nerve blocks, sacroiliac joint blocks, stellate ganglion injections and other blocks, it is very important you record the specific amount of pain relief you experienced immediately after the injectionand how long it lasted. Your doctor will ask you for this information at your follow up visit. For all injections, please keep the injection site dry and inspect the site for a couple of days. You may remove the Band-Aid the day of the injection at any time. Some discomfort, bruising or slight swelling may occur at the injection site. This is not abnormal if it occurs. If needed you may: -Take over the counter medication such as Tylenol or Motrin. -Apply an ice pack for 30 minutes, 2 to 3 times a day for the first 24 hours. You may shower today; no soaking baths, hot tubs, whirlpools or swimming pools for two days. If you are given steroids in your injection, it may take 3-5 days for the steroid medication to take effect. You may notice a worsening of your symptoms for 1-2 days after the injection. This is not abnormal. You may use acetaminophen, ibuprofen, or prescription medication that your doctor may have prescribed for you if you need to do so. A few common side effects of steroids include facial flushing, sweating, restlessness, irritability,difficulty sleeping, increase in blood sugar, and increased blood pressure. If you have diabetes, please monitor your blood sugar at least once a day for at least 5 days. If you have poorly controlled high blood pressure, monitoryour blood pressure for at least 2 days and contact your primary care physician if these numbers are unusually high for you. If you take aspirin or non-steroidal anti-inflammatory drugs (examples are Motrin, Advil, ibuprofen, Naprosyn, Voltaren, Relafen, etc.) you may restart these this evening, but stop taking it 3 days before your next appointment, unless instructed otherwiseby your physician. You do not need to discontinue opm-dyffkoo-xomvtdjmkm pain medications prior to an injection (examples: Celebrex, tramadol, hydrocodone and acetaminophen). If you take a blood thinning medication (Coumadin, Lovenox, Fragmin,Ticlid, Plavix, Pradaxa, etc.), please discuss this with your primary care physician/oxygen equipment technician and your pain physician. These medications MUST be discontinued before you can have an injection safely, without the risk of uncontrolled bleeding. If these medications are not discontinued for an appropriate period of time, you will not be able to receivean injection. Please adhere to instructions given to you about when to restart your blood thinning medication. If you have any questions please reach out to our team. If you are taking Coumadin, please have your INR checked the morning of your procedure and bring the result to your appointment unless otherwise instructed. If your INR is over 1.2, your injection may need to be rescheduled to avoid uncontrolled bleeding from the needle placement. Call [facility] facsimile operator and ask for Pain Management at [phone] between 8am-4pm Saturday - Saturday if you are experiencing the following: If you received an epidural or spinal injection: -Headache that doesnot go away with medicine, is worse when sitting or standing up, and is greatly relieved upon lying down. -Severe pain worse than or different than your baseline pain. -Chills or fever (101 F or greater). -Drainage or signs of infection at the injection site Go directly to the Emergency Department if you are experiencing the following and received an epidural or spinal injection: -Abrupt weakness or progressive weakness in your legs that starts after you leave the clinic. -Abrupt severe or worsening numbness in your legs. -Inability to urinate after the injection or loss of bowel or bladder control without the urge to defecate or urinate. If you have a clinical question that cannot wait until your next appointment, please call [phone] between 8am-4pm Saturday - Saturday or send a [employer] message. We do our best to return all non-emergency messages within 24 hours, Saturday - Saturday. A nurse or physician will return your message. You may also try calling and they will do their best to answer your question(s): - Dr. Gris Mcarthur/Tye's nurse ([phone]) If you need to cancel an appointment, please call the scheduling staff at [phone] during normal business hours or leave a message at least 24 hours in advance. If you are going to be sedated for your next procedure, you MUST have responsible adult who can legally drive accompany you home. You cannot eat or drink for at least eight hours prior to the planned procedure if you are going to receive sedation. You may take your non-blood thinning medications with a small sip of water. documented in this encounter [facility] Work Phone: 02-15-2025 History of Present illness Narrative Subjective Patient ID: Constanza Altamirano is a 74 y.o. female with a past medical history of obesity, arthritis, chronic neck pain, who presents for evaluation of her neck pain. Patient states that she started to have neck pain and associated headaches in August 2024. She denied any trauma or other related factors to cause her pain at that time. She states that the pain is primarily in the right side of the neck, and sometimes feels like it involves the proximal right shoulder. She states that she has difficulty looking to the right due to pain. She saw a pain physician in [place], who recommended cervical facet joint injections based on x-ray cervical spine that showed severe asymmetric right C1-C2 facet joint space loss and spurring. Patient states that the physician attempted the injection, but had difficulty getting to the right spot, so performed injections at likely C3-C4. She states that she had some relief, but this was short-term. Her pain physician therefore recommended her to see us for another attempt. The pain causes significant stress in the patient's life, interfering with general activity, mood, ability to walk distances, ability to perform tasks at home and/or work. Patient participates in physical therapy, and continues to perform physician directed exercises at home. Patient denies any bowel or bladder incontinence, saddle anesthesia, weaknesses, or falls. Review of Systems 13-point ROS done and negative except for HPI. No current outpatient medications Medical History[1] Surgical History[2] Family History[3] RX Allergies[4] Objective There were no vitals filed for this visit. Physical Exam General: NAD, well groomed, well nourished Eyes: Non-icteric sclera, EOMI Ears, Nose, Mouth, and Throat: External ears and nose appear to be without deformity or rash. No lesions or masses noted. Hearing is grossly intact. Neck: Supple, trachea midline, no appreciable lumps or lymph nodes Respiratory: Nonlabored breathing Cardiovascular: No peripheral edema observed Skin: No rashes or open lesions/ulcers identified on skin. Psychiatric: Alert, orientation to person, place, and time. Cooperative. Neurologic: Cranial nerves grossly intact. Strength: 5/5 and symmetric plantar/dorsiflexion Sensation: Normal to light touch throughout; pinprick intact throughout. DTRs:normal and symmetric throughout [place]ahan: absent Clonus: absent Back: Palpation: Tenderness to palpation over right cervical paraspinous muscles. Spurling's test: Negative bilaterally. Imaging personally reviewed and independently interpreted: No results found for this or any previous visit from the past 1000 days. No image results found. 1. 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 Radiculopathy of bwqiddvn-sougrnp-xwbyw region FL pain management Medial Nerve Branch Block Assessment/Plan Constanza Altamirano is a 74 y.o. female with a past medical history of obesity, arthritis, chronic neck pain, who presents for evaluation of her neck pain. Patient has right neck pain that is worse with looking to the right, without any radicular symptoms. 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 Patient previously had an attempt at right C1-C2 facet joint injection, but ended up with a lower level injection due to difficulty getting to the target. This injection did not provide the patient with durable relief, and was sent to us for second attempt at the target right C1-C2. She has imaging done at outside facilities. X-ray cervical spine done 09/11/2024 that showed severe asymmetric right C1-C2 joint space loss and spurring, as well as C5-C6 disc height loss and osseous foraminal narrowing. She also has MRI cervical spine that showed spondylosis without myelopathy or radiculopathy with right-sided cervical spine arthritis at C1-C2. History, physical examination, and x-ray cervical spine are consistent with right C1-C2 facet arthropathy. Plan: - We encouraged patient to continue physical therapy exercises as tolerated. - We will consider starting patient on tizanidine 2 mg p.o. nightly. - We will schedule patient for right atlantoaxial joint injection under fluoroscopy. Patient denies taking blood thinners at this time. The patient has already failed conservative therapies including medications such as acetaminophen, NSAIDs, and gabapentinoids; as well as physical therapy. Therefore, we discussed extensively the risks, benefits, and alternatives to the procedure. The patient's questions were addressed and answered in detail. The patient demonstrated understanding of the procedure, and is amenable to proceeding with it. The Risks of the procedure that were discussed with the patient include but are not limited to the following: A lack of efficacy, transient worsening of pain, bleeding, infection, nerve injury, nerve damage, neuritis or sunburn sensation. Follow up: After procedure The patient was invited to contact us back anytime with any questions or concerns and follow-up with us in the office as needed. 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 Orders: - FL pain management; Future - Medial Nerve Branch Block; Future Radiculopathy of eejfsert-tdjbgtq-dfxgv region - FL pain management; Future - Medial Nerve Branch Block; Future Other orders - NPO Diet Except: Sips with meds; Effective now; Standing - Height and weight; Standing - Insert and maintain peripheral IV; Standing - Saline lock IV; Standing - Adult diet Regular; Standing - Vital Signs; Standing - Notify physician - Standard Parameters; Standing - Prior to Discharge O2 Weaning; Standing - Pulse oximetry, continuous; Standing This note was generated with the aid of dictation software, there may be typos despite my attempts at proofreading. Bulmaro Hay MD Interventional Pain Medicine Fellow [facility] [1] No past medical history on file. [2] No past surgical history on file. [3] No family history on file. [4] No Known Allergies Cosigned by Germania Landry MD PhD at 02/16/2025 8:28 AM EDT Associated attestation - Germania Landry MD PhD - 02/16/2025 8:28 AM EDT I saw and evaluated the patient. I personally obtained the garrison and critical portions of the history and physical exam or was physically present for garrison and critical portions performed by the resident/fellow. I reviewed the resident/fellow's documentation and discussed the patient with the resident/fellow. I agree with the resident/fellow's medical decision making as documented in the note. The patient presenting with picture typical of severe pain stemming from the right C1-C2 joint. She cannot really turn her head because of the severe pain and limited range of movement. On exam she has focal tenderness over the right C1-2 joint, with exaggerated pain on rotating C1 over C2. She has also symptoms of C2 neuralgia due to irritation from the C1-C2 joint, irritating the right C2 dorsal root ganglion. She was referred by her local pain physician for right C1-C2 joint injection. They tried lower level cervical facet injections without much relief. She is requesting muscle relaxant because of her muscle spasms We had an extensive discussion about the planned procedure as it is considered high risk procedure because of the nearby vertebral artery and spinal cord. We discussed the pros and cons of such injection and what the long-term treatment options and she agreed to proceed. The patient was educated about red flag symptoms and signs. Fall risk education. documented in this encounter [facility] Work Phone: Evaluation note Diagnosis Cervical spondylosis without myelopathy- Primary Radiculopathy of bbiwugjq-eipyrib-brwyr region documented in this encounter [facility] Work Phone: Evaluation note* Diagnosis Cervical spondylosis without myelopathy Radiculopathy of cgagwpez-zwaffzf-whxlx region documented in this encounter [facility] Work Phone: Evaluation note* Diagnosis Cervical spondylosis without myelopathy Radiculopathy of klkmuvvp-hxbxqjk-hlaqn region documented in this encounter [facility] Work Phone: Evaluation note* Diagnosis Cervical spondylosis without myelopathy- Primary Radiculopathy of ojpkpgoq-ivjyurj-aaogj region documented in this encounter [facility] Work Phone: Evaluation note* Diagnosis Cervical spondylosis without myelopathy documented in this encounter [facility] Work Phone: Reason for visit Narrative* Procedure (Routine) - Authorized Specialty Diagnoses / Procedures Referred By Deanna bean Referred To Contact Pain Medicine Diagnoses Cervical spondylosis without myelopathy Radiculopathy of ycdqmtut-hodxrof-zvock region Procedures Medial Nerve Branch Block NJ NJX DX/THER AGT PVRT FACET JT CRV/THRC 1 LEVEL Germania Landry MD PhD [address] [place] [address] Phone: tel: fax: Germania Landry MD PhD [address] [place] [address] Phone: tel: fax: Referral ID Status Reason Start Date Expiration Date Visits Requested Visits Authorized [id number] Authorized Perform Procedure 02/15/2025 02/15/2026 1 1 [facility] Work Phone: Reason for visit Narrative* Imaging (Routine) - Authorized Specialty Diagnoses / Procedures Referred By Contac t Referred To Contact Radiology Diagnoses Cervical spondylosis without myelopathy Radiculopathy of vilpitls-kdjqomt-fhcln region Procedures XR cervical spine complete 4-5 views Germania Landry MD PhD [id number] [place] [address] Phone: tel: fax: Referral ID Status Reason Start Date Expiration Date Visits Requested Visits Authorized [id number] Authorized Perform Procedure 04/28/2025 04/28/2026 1 1 [facility] Work Phone: Reason for visit Narrative* Procedure (Routine) - Authorized Specialty Diagnoses / Procedures Referred By Contac t Referred To Contact Pain Medicine Diagnoses Cervical spondylosis without myelopathy Radiculopathy of wqbluqcw-shranag-vbrho region Procedures Medial Nerve Branch Block NJ NJX DX/THER AGT PVRT FACET JT CRV/THRC 1 LEVEL NJ NJX DX/THER AGT PVRT FACET JT CRV/THRC 2ND LEVEL Germania Landry MD PhD [id number] [place] [address] Phone: tel: fax: Germania Landry MD PhD [address] [place] [address] Phone: tel: fax: Referral ID Status Reason Start Date Expiration Date Visits Requested Visits Authorized [id number] Authorized Perform Procedure 04/28/2025 04/28/2026 1 1 [facility] Work Phone: Reason for visit Narrative* Procedure (Routine) - Authorized Specialty Diagnoses / Procedures Referred By Contac t Referred To Contact Pain Medicine Diagnoses Cervical spondylosis without myelopathy Procedures Radiofrequency Ablation NJ DSTR NROLYTC AGNT PARVERTEB FCT SNGL CRVCL/THORA NJ DSTR NROLYTC AGNT PARVERTEB FCT ADDL CRVCL/THORA Germania Landry MD PhD [id number] [place] [address] Phone: tel: fax: Germania Landry MD PhD [id number] [place] [address] Phone: tel: fax: Referral ID Status Reason Start Date Expiration Date Visits Requested Visits Authorized [id number] Authorized Perform Procedure 05/24/2025 05/24/2026 1 1 [facility] Work Phone: Summary Purpose Family History No Family History Records Found Breast Cancer Status:Active Comments:Mother. Maternal Grandmother. Diabetes Mellitus Type I Status:Active Comment s:Father. Breast Cancer Status:Active Comments:Mother. Maternal Grandmother. Diabetes Mellitus Type I Status:Active Comment s:Father. Advance Directives No Advanced Directives Records FoundNo Advanced Directives Records FoundNo Advanced Directives Records FoundNo Advanced Directives Records FoundNo Advanced Directives Records FoundNo Advanced Directives Records FoundNo Advanced Directives Records Found Hospital Course Note HNO ID: [id number] Author: Kaela Camilo MD Service: ? Author Type: Physician Type: Discharge Summary Filed: 10/11/2019 4:21 PM Note Text: [place] [address] HEALTH INFORMATION MANAGEMENT CLINICAL RESUME Patient: LORI ALTAMIRANO COLLIN D M.D. [id number] F Status: DIS IN 2SWEST 2930-B Date of Admission: 10/10/19 Date of Discharge: 10/11/19 DISCHARGE DIAGNOSES: 1. Bronchitis and bronchospasm after an influenza infection. 2. Hypertension. 3. Hyperlipidemia. HISTORY: This is a 68-year-old female who presents because of worsening cough and shortness of breath. She was in [place] visiting [facility] when she was diagnosed with influenza. She completed a course of Tamiflu. When she saw her PCP, she had continued symptoms especially of cough and started on azithromycin. She was also given albuterol nebulizers. However, the cough worsened, so she came to the emergency room. She was felt to be mildly hypoxic on room air at 88% to 9 (more content not included)... Additional Source Comments INFORMATION SOURCE (unrecogn ized section and content) DATE CREATED AUTHOR 10/11/2019 [facility] DATE CREATED AUTHOR AUTHOR'S ORGANIZ ATION 11/10/2019 [facility] DATE CREATED AUTHOR AUTHOR'S ORGANIZ ATION 07/28/2024 [facility] DATE CREATED AUTHOR AUTHOR'S ORGANIZ ATION 06/17/2025 [facility] DATE CREATED AUTHOR AUTHOR'S ORGANIZ ATION 08/02/2025 [facility] DATE CREATED AUTHOR AUTHOR'S ORGANIZ ATION 08/07/2025 [facility] DATE CREATED AUTHOR AUTHOR'S ORGANIZ ATION 08/07/2025 [facility] Reason for Visit (unrecogniz ed section and content) Reason Comments Neck Pain Reason Comments Neck Pain R sided pain at base of skull. Pain higher up into head does not hurt as much Migraine Care Teams (unrecognized sec tion and content) Sound Art Instructor Relationship Specialty Start Date End Date Eddy Pedraza MD [address] [address] PCP - General Internal Medicine 03/02/25 Sound Art Instructor Relationship Specialty Start Date End Date Eddy Pedraza MD [address] [address] PCP - General Internal Medicine 03/02/25 Sound Art Instructor Relationship Specialty Start Date End Date Eddy Pedraza MD [address] [address] PCP - General Internal Medicine 03/02/25 FOR RECORDS PERTAINING TO PATIENTS WHO ARE OR HAVE BEEN ENROLLED IN A CHEMICAL DEPENDENCY/SUBSTANCEABUSE PROGRAM, SOME INFORMATION MAY BE OMITTED. This clinical summary was aggregated from multiple sources. Caution should be exercised in using it in the provision of clinical care. This summary normalizes information from multiple sources, and as a consequence, information in this document may materially change the coding, format and clinical context of patient data. In addition, data may be omitted in some cases. CLINICAL DECISIONS SHOULD BE BASED ON THE PRIMARY CLINICAL RECORDS. [facility], [facility]. provides no warranty or guarantee of the accuracy or completeness of information in this document.
--- NOTE | 2025-08-09 06:42 | PCM.PRE.AN2 ---
ASA Classification* ASA Classification ASA Classification: 2 Assessment & Plan Anesthesia* Anesthesia Assessment Anesthesia Assessment: Discussed sedation and/or anesthesia options, risks, benefits, and alternatives with patient/parents/legal guardian/POA. Questions invited. The patient/parents/legal guardian/POA seems to understand and agrees to proceed with anesthesia plan. Reviewed the physical assessment, medical history, allergy history and patient home medications list prior to surgery/procedure/anesthetic and documented any changes. Performed airway and anesthesia risk assessments. 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 When Was Last Pacemaker Check QUESTION #4 FULL TEXT: You/Your Family Experience fever (hyperthermia) with Anesthesia Last Oral Intake Last Oral intake: Last Oral Intake NPO since Meds taken in AM with sips of water? Meds patient instructed to take am of surgery PONV PONV - blow molding machine operator: PONV - blow molding machine operator Female Yes 07/29/25 15:03 HX of Motion Sickness No 07/29/25 15:03 HX of N/V After Surgery No 07/29/25 15:03 Non-Smoker Yes 07/29/25 15:03 Duration of Surgery greater Yes 07/29/25 15:03 than 60 minutes Number of Risk Factors 3 07/29/25 15:03 PONV Score Moderate Risk 07/29/25 15:03 Height & Weight Height & Weight: Anesthesia: Height & Weight Height 5 ft 4 in 01/15/25 09:45 Respiratory Assessment Respiratory Assessment - blow molding machine operator: Respiratory Tract Infection Hx - blow molding machine operator Hx Respiratory Tract Infection No 07/29/25 15:03 STOP Sleep Apnea STOP Sleep Apnea - blow molding machine operator: STOP Sleep Apnea - blow molding machine operator Hx Hypertension Yes: CONTROLLED WITH MED 07/29/25 15:03 Hx Sleep Apnea Yes 07/29/25 15:03 CPAP Yes 07/29/25 15:03 BIPAP No 07/29/25 15:03 Do you snore loudly (louder than talking or can be heard Do you often feel tired/ fatigued/ sleepy during daytime? Has anyone observed you stop breathing during sleep? STOP Results Positive 07/29/25 15:03 QUESTION #5 FULL TEXT : Do you snore loudly (louder than talking or can be heard through closed doors)? 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 Specify any problems Hx of Preganancy in last 3 No 07/29/25 15:03 Months Nurse Filling Out Transfusion DSCHRIBER 07/29/25 15:03 & Questions: Date: 07/29/25 07/29/25 15:03 Time: 15:10 07/29/25 15:03 Patient unable to answer at this time (ie. confused, unrespo /Reproduction History /Reproductive History - blow molding machine operator: /Reproductive Hx- blow molding machine operator Hx Now No 07/29/25 15:03 Gestational Age (in weeks): EDC: Hx Hx Para Hx Section SAB No 07/29/25 15:03 Active Medications Active Medications: Current Medications Generic Name Dose Route Start Last Admin Trade Name Freq PRN Reason Stop Dose Admin Acetaminophen 1,000 mg 08/09/25 07:30 Acetaminophen 500 Mg Tablet PO 08/09/25 07:31 PREOP ONE Celecoxib 400 mg 08/09/25 07:30 Celecoxib 200 Mg Capsule PO 08/09/25 07:31 PREOP ONE Sodium Chloride 77.9 ml/ 0 ml 08/09/25 07:30 Ropivacaine 200 mg/ OPERA.SITE 08/09/25 07:31 Epinephrine HCl 0.6 mg/ INTRAOP ONE Ketorolac Tromethamine 30 mg/ Morphine Sulfate 5 mg Dexamethasone Sodium Phosphate 10 mg 08/09/25 07:30 Dexamethasone 10 Mg/Ml Vial IV 08/09/25 07:31 INTRAOP ONE Gabapentin 600 mg 08/09/25 07:30 Gabapentin 600 Mg Tablet PO 08/09/25 07:31 PREOP ONE Magnesium Sulfate 1 gm/ 102 mls @ 408 mls/hr 08/09/25 12:00 Dextrose IV 08/09/25 12:14 PREOP ONE Lactated Ringer's 1,000 mls @ 999 mls/hr 08/09/25 07:30 IV 08/09/25 08:30 .Q1H1M LINDSEY Cefazolin Sodium 2 gm/ Sodium 110 mls @ 150 mls/hr 08/09/25 07:30 Chloride IV 08/09/25 08:13 INTRAOP ONE Tranexamic Acid 1,000 mg/ 110 mls @ 660 mls/hr 08/09/25 07:30 Sodium Chloride IV 08/09/25 07:39 INTRAOP ONE Tranexamic Acid 1,000 mg/ 110 mls @ 660 mls/hr 08/09/25 07:30 Sodium Chloride IV 08/09/25 07:39 INTRAOP ONE Lactated Ringer's 1,000 mls @ 999 mls/hr 08/09/25 07:30 IV 08/09/25 08:30 .Q1H1M LINDSEY Lactated Ringer's 1,000 mls @ 125 mls/hr 08/09/25 07:30 IV 08/09/25 15:29 .Q8H LINDSEY Insulin Human Lispro 1 - 6 unit 08/09/25 07:30 Insulin Lispro 100 Unit/Ml Insuln.Pen SC 08/09/25 18:00 Q4H PRN PRN BG>/= 180, SEE PROTOCOL Protocol PFSH Medical History Wears hearing aid Cancer Post-menopausal Thyroid disease Back pain Heartburn CPAP (continuous positive airway pressure) dependence Shortness of breath on exertion Leg cramps History of pain when walking History of edema Arthritis High cholesterol Restless leg syndrome Hypertension Home Medications Medication Instructions Recorded Last Taken Type cholecalciferol (vitamin D3) 125 5,000 unit PO DAILY 07/03/19 Unknown History mcg (5,000 unit) capsule multivitamin,kc-mjnu-tmymtwbq 1 tab PO DAILY 07/03/19 Unknown History (Complete Multivitamin tablet) pravastatin 40 mg tablet 40 mg PO QHS 07/03/19 Unknown History losartan 50 mg tablet 50 mg PO QHS 01/15/25 Unknown History mecobalamin (vitamin B12) 1,000 1,000 mcg PO QDAY 01/15/25 Unknown History mcg lozenges CPAP - Continuous Positive Airway inhalation QHS 07/29/25 Unknown History Pressure([facility] INFORMATIONAL USE ONLY) levothyroxine 25 mcg tablet 25 mcg PO DAILY 07/29/25 Unknown History (Synthroid) meloxicam 15 mg tablet 15 mg PO DAILY 07/29/25 Unknown History ropinirole 6 mg tablet,extended 6 mg PO QHS 07/29/25 Unknown History release 24 hr tramadol 50 mg tablet 50 mg PO Q6H PRN PRN pain 07/29/25 Unknown History Allergy/AdvReac Type Severity Reaction Status Date / Time No Known Allergies Allergy Verified 07/29/25 14:56 Family History Mother Breast cancer, Onset Age: 60 Surgical History Hx of right cataract extraction Hx of left cataract extraction Hx of colonoscopy Hx of appendectomy Hx laparoscopic cholecystectomy S/P SHAE (total abdominal hysterectomy) Social History Smoking Status: Never smoker alcohol intake: current details: social substance use type: does not use caffeine: Yes what type of physical activity do you participate in: walking seatbelt use: always do you feel safe at home: Yes additional social history: 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
[2025-08-09] MEDS: Magnesium 1 GM over 15 mins IV (06:53)
[2025-08-09] MEDS: LR 1,000 ML - BOLUS PREOP 999 ML IV (06:54)
[2025-08-09] MEDS: Midazolam 2 MG/2 ML Syringe IV (07:30)
[2025-08-09] MEDS: Cefazolin 1 GM/5 ML Vial 2 GM IV (07:55)
[2025-08-09] MEDS: fentaNYL 100 MCG/2 ML Ampul 25 MCG IV (08:14)
[2025-08-09] MEDS: TRANEXAMIC ACID 1,000 MG/10 ML ML 2000 MG IV (09:03)
[2025-08-09] MEDS: JPS (Morphine 10mg/ml) OPERA.SITE (09:20)
--- NOTE | 2025-08-09 09:50 | PCM.POST.ANE ---
Anesthesia: Postop Eval I Current Vital Signs Temperature: 97.9 F Pulse Rate: 89 Blood Pressure: 134/69 Respiratory Rate: 12 Pulse Ox: 96 Oxygen Delivery Method: Nasal Cannula Oxygen Flow Rate (L/min): 2 Assessment Airway patent: Yes Spontaneous unlabored respirations: Yes Mental status: Awake and Calm nausea: No Vomiting: No Anesthesia Complication: No Fluid Hydration Crystalloid volume administer (ml): 1,700 Total IV fluid infused: 1,700 Progress Note Anesthesia document: Postop Eval 1 completed: Yes
--- NOTE | 2025-08-09 09:53 | OP.PCM_ITS ---
Operative Report (Standard) Operative Information Date of Procedure: 08/09/25 Pre-Operative Diagnosis: Right knee osteoarthritis Post-Operative Diagnosis: Right knee osteoarthritis Surgery/Procedure Performed: Robotic arm assisted right total knee arthroplasty mail distributor: Yes Residential Mental Health Worker: Zina Son Tasks completed by first press operator: Opening & closing, Implanting device, Hemostasis: Electrocautery and Retracting Type of Anesthesia: Spinal/Supplemental RN Documented Start/Stop Times: Operation Date: 08/09/25 07:30 Case Time Into Pre-Op 08/09/25 05:58 Anesthesia Start 08/09/25 07:49 Into Room 08/09/25 07:49 Procedure Start 08/09/25 08:09 Procedure End 08/09/25 09:27 Anesthesia End 08/09/25 09:30 Out of Room 08/09/25 09:30 Procedure Start Time: 08:09 Procedure Stop Time: 09:27 Select all DRAINS/GRAFTS/IMPLANTS that apply: Implanted device Implanted device details: Rosi psicofxpathlon press-fit 3 CR femur, size 3 press-fit tibia with 10 mm CS polyethylene Estimated Blood Loss: 50 cc Specimen collected: No Description of surgery: Patient was identified in the preoperative holding area by name, medical record number, and date of . Informed consent was confirmed with the patient. The operative knee was marked with a surgical marker. At time of his procedure, patient brought to the operative suite and positioned supine a standard operating table. Anesthesia then administered a spinal anesthetic. She was then repositioned in the supine position with all bony prominences well-padded. We then placed a well-padded pneumatic tourniquet on the right upper thigh. The right upper extremity was brought across patient's chest throughout the procedure. We then prepped and draped the right lower extremity in a normal, sterile orthopedic fashion. We performed a timeout with all parties in attendance in agreement with the side, site, operation be performed. No concerns were voiced and would like to proceed with surgery. 2 g Ancef was administered prior to the incision by anesthesia staff as well as 1 g IV TXA. First I exsanguinated the right lower extremity with a Esmarch bandage. Tourniq uet was inflated to 280 mmHg for 53 minutes. Esmarch was removed. I planned a standard midline approach to the right knee approximately 15 cm in length. Skin was sharply incised with a 10 blade scalpel developing full-thickness layers down to the retinaculum. Layers were developed identifying the VMO. I then planned a standard medial parapatellar arthrotomy performed in flexion. The anterior horn of the medial meniscus was released. Hoffa's fat pad was then released. I then everted the patella in extension and brought the knee into 90 degrees of flexion. The anterior horn of the lateral meniscus was then released. The ACL was split in its mid substance with a 10 blade. We then brought the knee back into extension. 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 I then placed pins in the metaphyseal distal femur medial to lateral for the Damian arrays. In similar fashion, I made 2 stab incisions approximately a hand sbreadth distal to the tibial tubercle along the medial aspect of the tibia, drilling 2 bicortical pins for the tibial array. The knee was brought into flexion. The patella was subluxed laterally but not everted. Medial lateral retractors were placed. We then utilized the [employer] software to confirm our planned surgical procedure and oriented with the patient's osseous anatomy. All checks with the [employer] system were confirmed. Patient had a significant fixed varus deformity after performing stress examination utilizing the [employer] software. We elected to place the tibial baseplate in 3 degrees of varus to allow for appropriate balancing. Sawblade was then brought in. I first started with the tibial cut, ensuring protection of the MCL and patellar tendon. A tibial wafer was then excised. I then proceeded to make the posterior femoral, anterior, anterior chamfer cuts with the same blade. Ligaments were protected with [employer] retractors. Sawblade was then exchanged to perform the distal femoral and posterior chamfer cuts. The robot was then removed from the surgical field. Remaining loose bone and meniscus was excised carefully. Posterior osteophytes were removed from the distal femur with a curved osteotome and rongeur. Trial components were then placed. Balance was excellent in both extension and 90 degrees flexion. No mid flexion instability was apparent. Tracking was excellent. We then marked for tibial baseplate. Distal femoral pegs were drilled. Tibial keel was punched. Press-fit claws were drilled for. Trials were removed. Periarticular block was administered. The wound was copiously irrigated with normal saline solution. Tourniquet was deflated. Hemostasis was excellent. An additional 1 g TXA was administered IV. The tibial and subsequently femoral components were impacted in standard fashion with excellent pullout strength. I selected a size 10 mm polyethylene which was placed and impacted per scientific affairs manager recommendations. Final components appeared very well balanced with excellent range of motion. There was no significant remaining flexion contracture. The wound was copiously irrigated with normal saline solution. Capsule was closed watertight with #1 strata fix barbed suture. Deeper bursal layer was reapproximated with 0 Vicryl suture. Dermis was reapproximated buried interrupted 2-0 Vicryl suture. Skin was finally reapproximated kendell. Patient tolerated the procedure well without apparent complication. She was safely awakened in the operative suite, transferred to his hospital bed and subsequently to PACU in stable condition. Need for skilled assistant wrestling coach: Zina Son PA-C was critical to the outcome of the case. During the course of the procedure the physician assistant wrestling coach played a vital role. Her intimate knowledge of my steps in the procedure aided in safe and expedient completion of the procedure. The PA played a vital role in positioning particularly in obtaining the appropriate positioning. The PA was also vital in the retraction of soft tissues during the exposure and projecting vital structures. The PA was also vital and protecting soft tissues during times of bony cuts. She also played a vital role in closure with my direct supervision. The PA was also important during reduction and dislocation of the joint and trials intraoperatively. Post Operative Plan: Patient will be placed in observation overnight. PT/OT ordered. Weightbearing: Range of motion and weightbearing as tolerated right lower extremity. Antibiotics: Ancef 1 g every 8 hours x 3 doses. 1 week doxycycline upon discharge. DVT Prophylaxis: Multimodal with SCDs, ROSEMARIE hose, early mobilization and aspirin 81 mg twice daily beginning this evening Carballo: None Dressing: Maintain silver dressing x 5 days X-Rays: 2-week x-rays in the office. Follow-up: 2 weeks for staple removal Surgical Findings: Fixed varus deformity right knee with flexion contracture. Resolved flexion contracture and improved alignment. Good balancing. Good patellofemoral tracking. Complications Complications: No Admit VTE Documentation VTE Present on Admission: No VTE Mechan Device Prophylaxis: SCD's and Thigh High ROSEMARIE Hose VTE Pharm Prophylaxis ordered?: Yes
--- NOTE | 2025-08-09 09:55 | RAD_ITS ---
PROCEDURE: KNEE 1 OR 2 VIEWS 08/09/2025 REASON FOR EXAM: POST OP TECHNIQUE: Procedure Code: RADK Modality: DX Procedure: KNEE 1 OR 2 VIEWS Laterality: Right COMPARISON: None. FINDINGS: Radiographs of the right knee demonstrate a right total knee arthroplasty with intra-articular and soft tissue lucencies as well as overlying surgical skin kendell. No fracture. Screw tract lucencies are noted in the distal femur as well as the proximal tibia. RAD/Knee 1 or 2 Views IMPRESSION: Right total knee arthroplasty with expected postoperative sequela. Reading Location: [place] [id number]
[2025-08-09] MEDS: LR 1,000 ML - BOLUS POSTOP 999 ML IV (09:59)
--- NOTE | 2025-08-09 10:53 | POSTOPAN2_ITS ---
Anesthesia Postop Eval I Sum Postop Eval Completion status Anesthesia document: Postop Eval 1 completed: Yes Anesthesia Postop Eval I Summary Anesthesia Postop Eval I Summary: Anesthesia Postop Eval I: Assessment Summary Airway patent Yes 08/09/25 09:53 ODD JOBS DAY [email or web address] Spontaneous unlabored Yes 08/09/25 09:53 ODD JOBS DAY WORKER.SHOF respirations Mental status Awake,Calm 08/09/25 09:53 ODD JOBS DAY [email or web address].SHOF nausea No 08/09/25 09:53 ODD JOBS DAY WORKER.SHOF Vomiting No 08/09/25 09:53 ODD JOBS DAY [email or web address].SHOF Anesthesia Postop Eval I: Fluid Summary Crystalloid volume administer 1,700 08/09/25 09:53 ODD JOBS DAY [email or web address].SHOF (ml) Colloids volume administered ( ml) Blood Product volume administered (ml) Total IV fluid infused 1,700 08/09/25 09:53 ODD JOBS DAY WORKER.SHOF Anesthesia Postop Eval I: Summary Notes Anesthesia Complication No 08/09/25 09:53 ODD JOBS DAY WORKER.SHOF Anesthesia Complication Comment: Post-operative progress note Anesthesia: Postop Eval II Evaluation Mental status: Awake Pain Level: 1 nausea: No Vomiting: No
--- NOTE | 2025-08-09 10:53 | PCM.POSTANE2 ---
Anesthesia Postop Eval I Sum Postop Eval Completion status Anesthesia document: Postop Eval 1 completed: Yes Anesthesia Postop Eval I Summary Anesthesia Postop Eval I Summary: Anesthesia Postop Eval I: Assessment Summary Airway patent Yes 08/09/25 09:53 STUDENT [email or web address] Spontaneous unlabored Yes 08/09/25 09:53 STUDENT COUNSELOR.SHOF respirations Mental status Awake,Calm 08/09/25 09:53 STUDENT COUNSELOR.SHOF nausea No 08/09/25 09:53 STUDENT COUNSELOR.SHOF Vomiting No 08/09/25 09:53 STUDENT COUNSELOR.SHOF Anesthesia Postop Eval I: Fluid Summary Crystalloid volume administer 1,700 08/09/25 09:53 STUDENT COUNSELOR.SHOF (ml) Colloids volume administered ( ml) Blood Product volume administered (ml) Total IV fluid infused 1,700 08/09/25 09:53 STUDENT COUNSELOR.SHOF Anesthesia Postop Eval I: Summary Notes Anesthesia Complication No 08/09/25 09:53 STUDENT COUNSELOR.SHOF Anesthesia Complication Comment: Post-operative progress note Anesthesia: Postop Eval II Evaluation Mental status: Awake Pain Level: 1 nausea: No Vomiting: No
[2025-08-09] MEDS: LR 1,000 ML - 125 ML/HR (POST BOLUS) POST OP IV (11:53)
[2025-08-09] MEDS: Cefazolin 1 GM/50 ML BAG IV (17:30)
[2025-08-09] MEDS: Senna/Docusate Sodium 1 Tablet 2 TABLET PO (20:52)
[2025-08-10 00:42] VITALS: BP 133/64; PULSE 83; RESP 16; TEMP 36.9; O2SAT 96
[2025-08-10] MEDS: Cefazolin 1 GM/50 ML BAG IV (01:19)
[2025-08-10 07:12] VITALS: O2SAT 93
[2025-08-10 08:01] VITALS: BP 158/66; PULSE 82; RESP 18; TEMP 36.6; O2SAT 100
[2025-08-10] MEDS: Senna/Docusate Sodium 1 Tablet 2 TABLET PO (08:08)
--- NOTE | 2025-08-10 11:33 | DS.PCM_ITS ---
Providers Date of Admission: 08/09/25 Date of Discharge: 08/10/25 Primary Care Physician: Dr. Bernice Turner MD Reason For Visit: ROBOTIC ASSISTED RIGHT TOTAL KNEE ARTHROPLASTY, ER Diagnosis Discharge Diagnosis (1) S/P total knee arthroplasty: Status: Acute Code(s): Z96.659 - Presence of unspecified artificial knee joint Plan: 1. Will continue PT today. Weightbearing as tolerated 2. plan for discharge this afternoon following PT 3. Patient will follow up for post op appointment 2 weeks as previously scheduled 4. Patient has outpatient PT appointment as previously scheduled 5. No postoperative labs 6. DVT prophylaxis : Aspirin 81 mg twice daily x 4 weeks 7. Pain control: patient instructed to take tylenol 500mg 2 tablets TID. and oxycodone 1-2 tablets every 4-6 hours only as needed for pain control. 8. Patient also given a prescription of meloxicam, Pepcid, senna, doxycycline x 1 week 9. ok to remove post op dressing. post op day 5 Medications at Discharge Home Medications cholecalciferol (vitamin D3) 125 mcg (5,000 unit) capsule 5,000 unit PO DAILY 07/03/19 multivitamin,up-ectl-fubhyhzi (Complete Multivitamin tablet) 1 tab PO DAILY 07/03/19 pravastatin 40 mg tablet 40 mg PO QHS 07/03/19 losartan 50 mg tablet 50 mg PO QHS 01/15/25 mecobalamin (vitamin B12) 1,000 mcg lozenges 1,000 mcg PO QDAY 01/15/25 CPAP - Continuous Positive Airway Pressure([facility] INFORMATIONAL USE ONLY) inhalati on QHS 07/29/25 levothyroxine 25 mcg tablet (Synthroid) 25 mcg PO DAILY 07/29/25 ropinirole 6 mg tablet,extended release 24 hr 6 mg PO QHS 07/29/25 tramadol 50 mg tablet 50 mg PO Q6H PRN PRN pain 07/29/25 acetaminophen 500 mg tablet 1,000 mg (2 x 500 mg) PO Q8 #180 tabs 08/10/25 aspirin 81 mg chewable tablet 81 mg PO BID 4 weeks #56 tabs 08/10/25 doxycycline hyclate 100 mg tablet 100 mg PO BID 1 week #14 tabs 08/10/25 meloxicam 7.5 mg tablet 7.5 mg PO BID #60 tabs 08/10/25 oxycodone 5 mg tablet 5 - 10 mg (1 - 2 x 5 mg) PO .q4-6hrs prn PRN Pain Score 4- 10 7 days #60 tabs 08/10/25 sennosides 8.6 mg-docusate sodium 50 mg tablet (Stimulant Laxative Plus) 2 tab PO BID #14 tabs 08/10/25 Hospital Course Summary of Care Provided Hospital Course: Patient is s/p right knee arthroplasty with Dr. Costa 08/09/2025. Patient resting comfortably in bed. Rates pain 5/ 10 at rest. With movement 5/10. States taking Tylenol and oxycodone and ice help to relieve pain. Patient has been up with therapy. Walking with the assit of a walker. Afebrile, no chest pain, shortness of breath, negative calf pain/ erythema, and no other signs of DVT. Physical Exam Narrative Patient resting comfortably in bed No signs of acute distress Satting well on room air Limb is warm to touch, Sensation intact throughout entire lower extremity, including saphenous, sural, superficial and deep peroneal, and tibial distribution. DP/PT pulses bounding. Dorsiflexion plantarflexion strength 5/5 Dressing clean dry and intact Calf nontender to palpation, no erythema, no edema. Negative Homans Weight / BMI Weight Weight: 111 kg Body Mass Index (BMI) 43.3 D/C Instructions Discharge Activity: Return to Normal Activity and May Shower Weight Bearing Status: Weight bearing as tolerated Keep extremity elevated above heart level: Operative Extremity Call your doctor if your incision/area has: Continuous Slow Oozing, Sudden Increased Bleeding, Increased Pain/ Swelling, Increased Redness, Foul Smelling Discharge and Swelling at the incision site Call your doctor if you observe: Fever of 101 or Higher, Inability to have a bowel movement, Dizziness, Chest pain, Calf discomfort and Uncontrolled pain Remove Dressing in: 1 week Cleanse incision/area with: Soap & Water and Keep Dressing Clean & Dry DC O2, CPAP, BIPAP Needs Home O2 Discharge instructions: No DC home with Oxygen: No When: 2 weeks as previously scheduled Meaningful Use Info Meaningful Use Meaningful Use Diagnoses (Choose all that apply): None applicable Discharge Plan Admission Admit Date/Time: 08/09/25 09:51 Attending Provider: Pankaj Costa Primary Care Provider: Bernice Turner Discharge Orders/Prescriptions Prescriptions: New aspirin 81 mg Tablet,Chewable 81 mg PO BID 28 Days Qty: 56 0RF acetaminophen 500 mg Tablet 1,000 mg PO Q8 Qty: 180 0RF meloxicam 7.5 mg Tablet 7.5 mg PO BID Qty: 60 0RF sennosides-docusate sodium [Stimulant Laxative Plus] 8.6-50 mg Tablet 2 tab PO BID Qty: 14 0RF oxycodone 5 mg Tablet 5 - 10 mg PO .q4-6hrs prn PRN (Reason: Pain Score 4-10) 7 Days Qty: 60 0RF doxycycline hyclate 100 mg tablet 100 mg PO BID 7 Days Qty: 14 0RF Continued pravastatin 40 mg tablet 40 mg PO QHS cholecalciferol (vitamin D3) 5,000 unit capsule 5,000 unit PO DAILY losartan 50 mg tablet 50 mg PO QHS mecobalamin (vitamin B12) 1,000 mcg lozenge 1,000 mcg PO QDAY Rx Instructions: allow to dissolve in mouth OR may chew lightly before swallowing levothyroxine [Synthroid] 25 mcg tablet 25 mcg PO DAILY ropinirole 6 mg tablet extended release 24 hr 6 mg PO QHS CPAP - Continuous Positive Airway Pressure([facility] INFORMATIONAL USE ONLY) inhalation QHS Discontinued meloxicam 15 mg tablet 15 mg PO DAILY No Action Complete Multivitamin Tablet 1 tab PO DAILY tramadol 50 mg tablet 50 mg PO Q6H PRN PRN (Reason: pain) Referrals / Follow Up: Bernice Turner MD [Primary Care Provider, Internal Medicine] Disposition Disposition (needs filled in before D/C Order can be placed): Home, Self Care
--- NOTE | 2025-08-10 12:50 | CASEMGMT ---
ALMITA CM into pt room, pt sitting up in bed with at bedside. Pt states she has OP therapy set up at [facility] on . Pt states he brought the walker and it is in the care. Pt states she has other DME also at home. Pt denies any further homegoing needs at this time. Pt is ready for dc.
[2025-08-10 13:09] VITALS: BP 142/58; PULSE 88; RESP 18; TEMP 36.2; O2SAT 100
--- NOTE | 2025-08-10 13:10 | CASEMGMT ---
GARSIA Met with patient to complete GARSIA form. GARSIA form and its content were verbally explained and patient's questions were answered to the best of my ability. Patient voiced understanding and signed GARSIA form. Patient provided a copy of signed GARSIA form and original placed in patient's chart. Patient had no further questions. Eusebia Santana, Discharge Planning Asst
--- NOTE | 2025-08-10 13:32 | PHA.DC.MR.R ---
Pharmacy [facility] Med Reconciliation Pharmacy Service has performed discharge medication reconciliation for this patient. The patient's discharge medication list was reviewed for discrepancies and discrepancies were resolved. Medications at Discharge Home Medications cholecalciferol (vitamin D3) 125 mcg (5,000 unit) capsule 5,000 unit PO DAILY 07/03/19 multivitamin,tl-rgiz-lgyswsxt (Complete Multivitamin tablet) 1 tab PO DAILY 07/03/19 pravastatin 40 mg tablet 40 mg PO QHS 07/03/19 losartan 50 mg tablet 50 mg PO QHS 01/15/25 mecobalamin (vitamin B12) 1,000 mcg lozenges 1,000 mcg PO QDAY 01/15/25 CPAP - Continuous Positive Airway Pressure([facility] INFORMATIONAL USE ONLY) inhalation QHS 07/29/25 levothyroxine 25 mcg tablet (Synthroid) 25 mcg PO DAILY 07/29/25 ropinirole 6 mg tablet,extended release 24 hr 6 mg PO QHS 07/29/25 acetaminophen 500 mg tablet 1,000 mg (2 x 500 mg) PO Q8 #180 tabs 08/10/25 aspirin 81 mg chewable tablet 81 mg PO BID 4 weeks #56 tabs 08/10/25 doxycycline hyclate 100 mg tablet 100 mg PO BID 1 week #14 tabs 08/10/25 meloxicam 7.5 mg tablet 7.5 mg PO BID #60 tabs 08/10/25 oxycodone 5 mg tablet 5 - 10 mg (1 - 2 x 5 mg) PO .q4-6hrs prn PRN Pain Score 4-10 7 days #60 tabs 08/10/25 sennosides 8.6 mg-docusate sodium 50 mg tablet (Stimulant Laxative Plus) 2 tab PO BID #14 tabs 08/10/25
== END 2025-08-10 13:30 | disposition home or self-care (01) ==
LOC: SDC 16:24 → MS3 16:24
PROVIDERS: Admitting Provider Student in an Organized Health Care Education/Training Program; PCP Student in an Organized Health Care Education/Training Program; Referring Provider Student in an Organized Health Care Education/Training Program; Visit Provider Student in an Organized Health Care Education/Training Program
DX: M17.11 Unilateral primary osteoarthritis, right knee (principal); Z68.41 Body mass index [BMI] 40.0-44.9, adult; M21.161 Varus deformity, not elsewhere classified, right knee; E78.00 Pure hypercholesterolemia, unspecified; G47.30 Sleep apnea, unspecified; M24.561 Contracture, right knee; Z79.899 Other long term (current) drug therapy; R73.03 Prediabetes; E66.9 Obesity, unspecified
CPT/HCPCS: 27447; S2900; 01402; 73560; 82962; 94668; 94762; 96365; 96366; 97162; 97165; 99221; C1776; G0378; J3475